=== PATIENT | male | born 1950 | race Caucasian/White ===

== ENCOUNTER 2018-01-29 12:55 | Observation (INO) ==
--- NOTE | 2018-01-29 13:37 | Emergency Department Note ---
Disposition Clinical Impression: Total bilirubin, elevated, Confusion, Pulmonary nodule, Jaundice Disposition: Admitted As Inpatient Condition: Undetermined Referrals: Madelyn Corona DO [Primary Care Provider] - Forms: ED Satisfaction Letter Time of Disposition: 15:48 Altered Mental Status HPI - General Chief Complaint: ED Altered Mental Status Stated Complaint: AMS Time Seen by Provider: 01/29/18 13:23 Source: patient Mode of arrival: ambulatory Limitations: no limitations Nursing Notes Reviewed: Yes Vital Signs Reviewed: Yes - History of Present Illness HPI Narrative: 67-year-old male arrives to the emergency department with concern for confusion and not quite acting right. The patient has been experiencing some intermittent confusion that he has noted with some associated decrease in memory , over the past 3 weeks. His daily worse over the past week. The patient went to his PCP and PCP noted that there is some discoloration of bilateral eyes and he was confused to recent the patient to the emergency department for further evaluation. The patient admits to some decrease in balance but no urinary complaints. He has had this confusion. He denies any abdominal pain, dysuria, black or bloody stools, nausea, vomiting, diarrhea, headaches. He is resting comfortably in the room and was oriented to person and place to nursing staff as well as myself but was noted to not be oriented to time to nursing staff which is documented. To me in the room during exam he is able to give the year but he specifically states that he was unable to a few minutes prior. - Related Data Home Medications Medication Instructions Recorded Confirmed Amlodipine Besylate 10 mg PO DAILY 07/03/16 07/03/16 Ammonium Lactate 1 appl TP BID 07/03/16 07/03/16 Aspirin 81 mg PO DAILY 07/03/16 07/03/16 Atenolol [Tenormin] 50 mg PO DAILY 07/03/16 07/03/16 Cetirizine HCl [Zyrtec] 10 mg PO DAILY 07/03/16 07/03/16 Cholecalciferol (Vitamin D3) 5,000 unit PO DAILY 07/03/16 07/03/16 [Vitamin D3] Dimethicone [Cerave] 1 appl TP BID 07/03/16 07/03/16 Donepezil HCl [Aricept] 10 mg PO HS 07/03/16 07/03/16 Fluticasone Propionate Nasal 50 - 100 mcg NS DAILY PRN 07/03/16 07/03/16 [Flonase] Insulin Glargine [Lantus] 32 unit SQ QPM 07/03/16 07/03/16 Insulin Human Regular [HumuLIN R] 0 unit SQ HS MDD Sliding Scale 07/03/1607/03 Lisinopril [Zestril] 20 mg PO QPM 07/03/16 07/03/16 Lisinopril [Zestril] 40 mg PO QAM 07/03/16 07/03/16 Memantine HCl 10 mg PO BID 07/03/16 07/03/16 Multivitamin [Multi-Day Vitamins] 1 each PO DAILY 07/03/16 07/03/16 Paroxetine [Paxil] 20 mg PO DAILY 07/03/16 07/03/16 Potassium Chloride [K-Tab ER] 20 meq PO BID 07/03/16 07/03/16 Pregabalin [Lyrica] 75 mg PO BID 07/03/16 07/03/16 Saline Nasal [place] [[place] Nasal 1 - 2 spray NS Q4-6H PRN 07/03/16 07/03/16 [place]] Simvastatin [Zocor] 20 mg PO HS 07/03/16 07/03/16 Tamsulosin [Flomax] 0.4 mg PO DAILY 07/03/16 07/03/16 Thiamine (B-1) [Vitamin B-1] 100 mg PO DAILY 07/03/16 07/03/16 clonazePAM [Klonopin] 0.5 mg PO BID PRN 07/03/16 07/03/16 hydroCHLOROthiazide 12.5 mg PO DAILY 07/03/16 07/03/16 [Hydrochlorothiazide] metFORMIN [Glucophage] 850 mg PO BIDWM 07/03/16 07/03/16 Previous Rx's Medication Instructions Recorded Rivaroxaban [Xarelto] 20 mg PO DAILY #30 tablet 07/04/16 Allergies Allergy/AdvReac Type Severity Reaction Status Date / Time ampicillin Allergy Rash Verified 01/29/18 12:59 Penicillins Allergy Hives Verified 01/29/18 12:59 All systems ED: reviewed and negative except as stated. Constitutional: Reports: weakness. Denies: fever, chills ENT ED: Denies: congestion Cardiovascular: Denies: chest pain, dyspnea on exertion, edema, syncope Respiratory: Denies: dyspnea Gastrointestinal: Denies: abdominal pain, nausea, vomiting, diarrhea, constipation, hematemesis, melena, hematochezia Genitourinary: Denies: urgency, dysuria Musculoskeletal: Denies: back pain Neurological: Reports: weakness, confusion. Denies: headache, numbness, paresthesias, abnormal gait, vertigo Past Medical History - Past Medical History Attestation: Yes The following information was validated with the patient. Source: patient, old records reviewed Medical history: Reports: arthritis, atrial fibrillation, dementia, diabetes, hyperlipidemia, hypertension Surgical history: Reports: orthopedic, other Psychiatric history: Reports: anxiety, depression - Social History Smoking Status: Former smoker Smokeless Tobacco Status: No Alcohol use: Reports: none Drug use: Reports: none Physical Exam - General Limitations: altered mental status General appearance: alert, in no apparent distress - Head Head exam: atraumatic, normocephalic, normal inspection - Eye Eye exam: Present: PERRL, EOMI, scleral icterus - ENT ENT exam: normal exam - Neck Neck exam: Present: normal inspection, full ROM, trachea midline - Chest Chest inspection: Present: normal inspection, symmetric chest wall rise - Respiratory Respiratory exam: Present: normal lung sounds bilaterally - Cardiovascular Cardiovascular exam: Present: regular rate, normal rhythm, normal heart sounds - Abdominal Exam Abdominal exam: Present: soft, Non-Tender. Absent: tenderness, distention, guarding, rebound, rigidity - Extremities Exam Extremities exam: Present: normal inspection, full ROM. Absent: tenderness, pedal edema - Back Exam Back exam: Present: normal inspection, full ROM. Absent: tenderness - Neurological Exam Neurological exam: Present: alert, CN II-XII intact - Expanded Neurological Exam Patient oriented to: Present: person, place Speech: Present: fluid speech Cranial nerves: EOM function (II, III, IV, ): Normal, facial sensation (V): Normal, facial palsy (VII): Normal Cerebellar function: normal gait Motor strength - LUE: 4/5 Motor strength - RUE: 4/5 Motor strength - LLE: 4/5 Motor strength - RLE: 4/5 Sensory exam upper extremity: light touch: Normal Sensory exam lower extremity: light touch: Normal DTR: patellar (L): 2+, patellar (R): 2+ Coma Scale Eye Opening: Spontaneous Coma Scale Motor Response: Obeys Commands Coma Scale Verbal Response: Confused Coma Scale Total: 14 - Skin Skin exam: Present: warm, dry, intact, normal color Course Vital Signs Temperature 98 F 01/29/18 12:59 Pulse Rate 80 01/29/18 12:59 Respiratory Rate 20 01/29/18 12:59 Blood Pressure 163/82 01/29/18 12:59 O2 Sat by Pulse Oximetry 97 01/29/18 12:59 Temperature 98 F 01/29/18 13:36 Pulse Rate 115 01/29/18 15:44 Respiratory Rate 16 01/29/18 15:44 Blood Pressure 149/101 01/29/18 15:44 O2 Sat by Pulse Oximetry 97 01/29/18 15:44 Oxygen Delivery Oxygen Delivery Room Air Altered Mental Status - MDM Narrative Medical decision making narrative: Workup in the emergency department demonstrates an elevated bilirubin. Given the patient's confusion as well as bilirubin, we will admit the patient to the hospital at this time for further workup and care. The patient was made aware and agrees to plan. No further questions or concerns noted at this time. Patient was accepted by the hospitalist Dr. Newberry, who requested a ultrasound of his abdomen. This was ordered. The patient will be accepted to the hospital this time. - Lab Data Lab results reviewed: Yes I reviewed the patient's lab results. Result diagrams: 01/29/18 13:34 01/29/18 13:34 Lab Results 01/29/18 01/29/18 01/29/18 Range/Units 13:34 13:34 13:34 WBC 6.9 (4.3-11.1) K/mcL RBC 5.24 (4.19-5.50) M/mcL Hgb 16.0 (12.9-16.9) g/dL Hct 46.9 (37.5-50.1) % MCV 89.5 (83.0-100.0) fL MCH 30.5 (28.0-33.3) pg MCHC 34.1 (31.6-35.5) g/dL RDW 13.0 (11.5-14.5) % Plt Count 171 (140-400) K/mcL MPV 11.4 (9.4-12.4) fL Immature Gran % 0.3 (0-4) % Seg Neutrophils % 73.8 % Lymphocytes % 15.8 % Monocytes % 6.8 % Eosinophils % 2.9 % Basophils % 0.4 % Neutrophils # 5.1 (1.6-8.9) K/mcL Lymphocytes # 1.1 (0.6-4.6) K/mcL Monocytes # 0.5 (0.0-1.3) K/mcL Eosinophils # 0.2 (0.0-0.6) K/mcL Basophils # 0.0 (0.0-0.2) K/mcL PT (9.4-12.1) Seconds INR APTT (26.0-36.0) Seconds Sodium 139 (136-145) mEq/L Potassium 3.6 (3.5-5.1) mEq/L Chloride 100 (98-107) mEq/L Carbon Dioxide 30 H (23-29) mEq/L BUN 16 (8-23) mg/dL Creatinine 1.02 (0.70-1.30) mg/dL Est GFR ( Amer) > 60 (> 60) Est GFR (Non-Af Amer) > 60 (> 60) BUN/Creatinine Ratio 16 (6-26) Glucose 277 H (70-105) mg/dL Calculated Osmolality 299 (280-300) Calcium 10.0 (8.6-10.3) mg/dL Total Bilirubin 1.5 H (0.3-1.0) mg/dL Direct Bilirubin 0.3 H (0.0-0.2) mg/dL Indirect Bilirubin 1.2 (0.0-1.2) mg/dL AST 18 (13-39) Units/L ALT 25 (7-52) Units/L Alkaline Phosphatase 120 H (34-104) Units/L Ammonia 27 (16-53) mcmol/L Troponin I < 0.03 (< 0.04) ng/mL Serum Total Protein 7.5 (6.4-8.9) g/dL Albumin 4.8 (3.5-5.7) g/dL Globulin 2.7 (2.4-3.5) g/dL Albumin/Globulin Ratio 1.8 (1.1-2.2) Urine Color (Yellow) Urine Clarity (Clear) Urine pH (5.0-8.0) pH Units Ur Specific [place] (1.010-1.025) Urine Protein (Neg-Trace) mg/dL Urine Glucose (UA) (Normal) mg/dL Urine Ketones (Negative) mg/dL Urine Blood (Negative) Urine Nitrite (Negative) Urine Bilirubin (Negative) Urine Urobilinogen (Normal) mg/dL Ur Leukocyte Esterase (Negative) Urine Microscopic RBC (0-3) per hpf Urine Microscopic WBC (0-3) per hpf Ur Squamous Epith Cells (None-Few) per lpf Urine Bacteria (None-Few) per hpf Hyaline Casts (None-Few) per lpf Ur Culture Indicated? (NO) Ethyl Alcohol < 10 (Less than 10) mg/dL 01/29/18 01/29/18 Range/Units 13:34 14:35 WBC (4.3-11.1) K/mcL RBC (4.19-5.50) M/mcL Hgb (12.9-16.9) g/dL Hct (37.5-50.1) % MCV (83.0-100.0) fL MCH (28.0-33.3) pg MCHC (31.6-35.5) g/dL RDW (11.5-14.5) % Plt Count (140-400) K/mcL MPV (9.4-12.4) fL Immature Gran % (0-4) % Seg Neutrophils % % Lymphocytes % % Monocytes % % Eosinophils % % Basophils % % Neutrophils # (1.6-8.9) K/mcL Lymphocytes # (0.6-4.6) K/mcL Monocytes # (0.0-1.3) K/mcL Eosinophils # (0.0-0.6) K/mcL Basophils # (0.0-0.2) K/mcL PT 11.3 (9.4-12.1) Seconds INR 1.1 APTT 34.1 (26.0-36.0) Seconds Sodium (136-145) mEq/L Potassium (3.5-5.1) mEq/L Chloride (98-107) mEq/L Carbon Dioxide (23-29) mEq/L BUN (8-23) mg/dL Creatinine (0.70-1.30) mg/dL Est GFR ( Amer) (> 60) Est GFR (Non-Af Amer) (> 60) BUN/Creatinine Ratio (6-26) Glucose (70-105) mg/dL Calculated Osmolality (280-300) Calcium (8.6-10.3) mg/dL Total Bilirubin (0.3-1.0) mg/dL Direct Bilirubin (0.0-0.2) mg/dL Indirect Bilirubin (0.0-1.2) mg/dL AST (13-39) Units/L ALT (7-52) Units/L Alkaline Phosphatase (34-104) Units/L Ammonia (16-53) mcmol/L Troponin I (< 0.04) ng/mL Serum Total Protein (6.4-8.9) g/dL Albumin (3.5-5.7) g/dL Globulin (2.4-3.5) g/dL Albumin/Globulin Ratio (1.1-2.2) Urine Color Yellow (Yellow) Urine Clarity Clear (Clear) Urine pH 7.0 (5.0-8.0) pH Units Ur Specific [place] 1.018 (1.010-1.025) Urine Protein 30 H (Neg-Trace) mg/dL Urine Glucose (UA) 250 H (Normal) mg/dL Urine Ketones Negative (Negative) mg/dL Urine Blood Negative (Negative) Urine Nitrite Negative (Negative) Urine Bilirubin Negative (Negative) Urine Urobilinogen Normal (Normal) mg/dL Ur Leukocyte Esterase Negative (Negative) Urine Microscopic RBC 3-5 H (0-3) per hpf Urine Microscopic WBC 0-3 (0-3) per hpf Ur Squamous Epith Cells Moderate H (None-Few) per lpf Urine Bacteria None Seen (None-Few) per hpf Hyaline Casts None Seen (None-Few) per lpf Ur Culture Indicated? NO (NO) Ethyl Alcohol (Less than 10) mg/dL - Radiology Data Radiology results reviewed: Yes I reviewed the patient's radiology results. Chest X-Ray 01/29/18 13:08 IMPRESSION: No acute cardiopulmonary process. D/ / 01/29/2018 13:49:54 Deng Turner MD / yovani Interpreting Provider: Deng Turner MD Abdomen/Pelvis CT 01/29/18 13:32 IMPRESSION: 1. No definite acute findings in the abdomen or pelvis. 2. Small bowel fecalization without findings of obstruction, potentially due to bacterial overgrowth. 3. Areas of mild urinary bladder wall thickening could be related to incomplete distention, chronic outlet obstruction, or cystitis. 4. Suspected circumferential wall thickening in the distal thoracic esophagus potentially due to esophagitis. 5. Partially included solid nodule in the lingula measures at least 0.7 cm x 0.3 cm. Alternately, this could represent incompletely included scarring. Consider follow-up chest CT in 12 months as below. 6. A few incidental findings as above. RECOMMENDATIONS: Fleischner Society guidelines for follow-up and management of incidentally detected pulmonary nodules: Single Solid Nodule: Nodule size less than 6 mm In a high-risk patient, optional CT at 12 months. Radiology 2017 http://pubs.rsna.org/doi/full/10.1148/radiol.[email or web address] D/ / Alexandr Carrion MD / Alexandr Carrion MD Interpreting Provider: Alexandr Carrion MD Head CT 01/29/18 13:32 IMPRESSION: No acute intracranial abnormality. D/ / Rose Ellis MD / Rose Ellis MD Interpreting Provider: Rose Ellis MD - EKG Data EKG attestation: Yes I reviewed and interpreted this EKG. EKG results narrative: Heart rate 97 beats for minute. Atrial fibrillation. No ST elevation or ST depression noted. No acute changes noted. TPA Checklist - LKW: 3-4.5 hrs Add. Warnings/Precautions Patient/family understanding: The patient/family members have been counseled and understood the risk, benefit , and alternatives of treatment.
[2018-01-29 14:17] LABS: Troponin I < 0.03 ng/mL (< 0.04)
[2018-01-29 14:18] LABS: Alanine Aminotransferase 25 Units/L (7-52); Albumin 4.8 g/dL (3.5-5.7); Albumin/Globulin Ratio 1.8 (1.1-2.2); Alkaline Phosphatase 120 Units/L (34-104); Aspartate Amino Transferase 18 Units/L (13-39); BUN/Creatinine Ratio 16 (6-26); Bilirubin,Direct 0.3 mg/dL (0.0-0.2); Bilirubin,Indirect 1.2 mg/dL (0.0-1.2); Bilirubin,Total 1.5 mg/dL (0.3-1.0); Blood Urea Nitrogen 16 mg/dL (8-23); Carbon Dioxide 30 mEq/L (23-29); Chloride 100 mEq/L (98-107); Ethanol < 10 mg/dL (Less than 10); Globulin 2.7 g/dL (2.4-3.5); Glucose 277 mg/dL (70-105); Osmolality,Calculated 299 (280-300); Potassium 3.6 mEq/L (3.5-5.1); Sodium 139 mEq/L (136-145); Total Protein 7.5 g/dL (6.4-8.9); eGFR For African Americans > 60 (> 60); eGFR For Non-African Americans > 60 (> 60)
[2018-01-29 14:24] LABS: Basophils % 0.4 %; Eosinophils # 0.2 K/mcL (0.0-0.6); Eosinophils % 2.9 %; Hematocrit 46.9 % (37.5-50.1); Immature Granulocytes % 0.3 % (0-4); Lymphocytes # 1.1 K/mcL (0.6-4.6); Lymphocytes % 15.8 %; Mean Corpuscular HGB Conc 34.1 g/dL (31.6-35.5); Mean Corpuscular Hemoglobin 30.5 pg (28.0-33.3); Mean Corpuscular Volume 89.5 fL (83.0-100.0); Mean Platelet Volume 11.4 fL (9.4-12.4); Monocytes # 0.5 K/mcL (0.0-1.3); Monocytes % 6.8 %; Neutrophils # 5.1 K/mcL (1.6-8.9); Platelet Count 171 K/mcL (140-400); Red Blood Count 5.24 M/mcL (4.19-5.50); Segmented Neutrophils % 73.8 %
[2018-01-29 14:35] LABS: INR 1.1; Prothrombin Time 11.3 Seconds (9.4-12.1)
[2018-01-29 14:38] LABS: Activated Partial Thrombo Time 34.1 Seconds (26.0-36.0)
[2018-01-29 14:56] LABS: Bilirubin,Urine Negative (Negative); Blood,Urine Negative (Negative); Clarity,Urine Clear (Clear); Color,Urine Yellow (Yellow); Glucose,Urine (UA) 250 mg/dL (Normal); Ketones,Urine Negative (Negative); Leukocyte Esterase,Urine Negative (Negative); Nitrite,Urine Negative (Negative); Protein,Urine 30 mg/dL (Neg-Trace); Specific Gravity,Urine 1.018 (1.010-1.025); Urobilinogen,Urine Normal (Normal)
[2018-01-29 14:58] LABS: Bacteria,Urine None Seen per hpf (None-Few); Hyaline Casts,Urine None Seen per lpf (None-Few); Squamous Epithelial Cell,Urine Moderate per lpf (None-Few); WBC,Urine 0-3 per hpf (0-3)
[2018-01-29] MEDS ORDERED: 0.9 % Sodium Chloride 1,000 ML IVC ONE (15:47)
[2018-01-29 15:59] LABS: Amphetamine Screen,Urine Negative ng/mL (Cutoff=1000); Barbiturate Screen,Urine Negative ng/mL (Cutoff=200); Benzodiazepines Screen,Urine Negative ng/mL (Cutoff=200); Cannabinoid Screen,Urine Negative ng/mL (Cutoff = 50); Cocaine Screen,Urine Negative ng/mL (Cutoff= 300); Opiate Screen,Urine Negative ng/mL (Cutoff=300); Phencyclidine Screen,Urine Negative ng/mL (Cutoff=25)
--- NOTE | 2018-01-29 16:30 | Emergency Department Note ---
Disposition Clinical Impression: Total bilirubin, elevated, Confusion, Pulmonary nodule, Jaundice Disposition: Admitted As Inpatient Referrals: Madelyn Corona DO [Partnered Physician] - Forms: ED Satisfaction Letter Altered Mental Status HPI - General Chief Complaint: ED Altered Mental Status Stated Complaint: AMS Time Seen by Provider: 01/29/18 13:23 Source: patient Mode of arrival: ambulatory Limitations: altered mental status Nursing Notes Reviewed: Yes Vital Signs Reviewed: Yes - Related Data Home Medications Medication Instructions Recorded Confirmed Amlodipine Besylate 10 mg PO DAILY 07/03/16 01/29/18 Ammonium Lactate 1 appl TP BID 07/03/16 01/29/18 Aspirin 81 mg PO DAILY 07/03/16 01/29/18 Cetirizine HCl [Zyrtec] 10 mg PO DAILY 07/03/16 01/29/18 Cholecalciferol (Vitamin D3) 5,000 unit PO DAILY 07/03/16 01/29/18 [Vitamin D3] Dimethicone [Cerave] 1 appl TP BID 07/03/16 01/29/18 Donepezil HCl [Aricept] 10 mg PO HS 07/03/16 01/29/18 Fluticasone Propionate Nasal 50 - 100 mcg NS DAILY PRN 07/03/16 01/29/18 [Flonase] Insulin Glargine [Lantus] 32 unit SQ QPM 07/03/16 01/29/18 Insulin Human Regular [HumuLIN R] 0 unit SQ HS MDD Sliding Scale 07/03/1601/29 Lisinopril [Zestril] 20 mg PO QPM 07/03/16 01/29/18 Lisinopril [Zestril] 40 mg PO QAM 07/03/16 01/29/18 Memantine HCl 10 mg PO BID 07/03/16 01/29/18 Paroxetine [Paxil] 20 mg PO DAILY 07/03/16 01/29/18 Potassium Chloride [K-Tab ER] 20 meq PO BID 07/03/16 01/29/18 Pregabalin [Lyrica] 75 mg PO BID 07/03/16 01/29/18 Saline Nasal [place] [[place] Nasal 1 - 2 spray NS Q4-6H PRN 07/03/16 01/29/18 [place]] Simvastatin [Zocor] 20 mg PO HS 07/03/16 01/29/18 Thiamine (B-1) [Vitamin B-1] 100 mg PO DAILY 07/03/16 01/29/18 clonazePAM [Klonopin] 0.5 mg PO BID PRN 07/03/16 01/29/18 hydroCHLOROthiazide 12.5 mg PO DAILY 07/03/16 01/29/18 [Hydrochlorothiazide] metFORMIN [Glucophage] 850 mg PO BIDWM 07/03/16 01/29/18 Atenolol [Tenormin] 25 mg PO DAILY 01/29/18 01/29/18 Multivitamin [One Daily 1 tab PO DAILY 01/29/18 01/29/18 Multivitamin] OxyCODONE/APAP 5/325 [Percocet 1 tab PO Q6HR PRN 01/29/18 01/29/18 5/325 MG] Tamsulosin [Flomax] 0.4 mg PO DAILY 01/29/18 01/29/18 Previous Rx's Medication Instructions Recorded Rivaroxaban [Xarelto] 20 mg PO DAILY #30 tablet 07/04/16 Allergies Allergy/AdvReac Type Severity Reaction Status Date / Time ampicillin Allergy Rash Verified 01/29/18 12:59 Penicillins Allergy Hives Verified 01/29/18 12:59 Constitutional: Reports: weakness. Denies: fever, chills ENT ED: Denies: congestion Cardiovascular: Denies: chest pain, dyspnea on exertion, edema, syncope Respiratory: Denies: dyspnea Gastrointestinal: Denies: abdominal pain, nausea, vomiting, diarrhea, constipation, hematemesis, melena, hematochezia Genitourinary: Denies: urgency, dysuria Musculoskeletal: Denies: back pain Neurological: Reports: weakness, confusion. Denies: headache, numbness, paresthesias, abnormal gait, vertigo Past Medical History - Past Medical History Medical history: Reports: arthritis, atrial fibrillation, dementia, diabetes, hyperlipidemia, hypertension Surgical history: Reports: orthopedic, other Psychiatric history: Reports: anxiety, depression - Social History Smoking Status: Former smoker Smokeless Tobacco Status: No Alcohol use: Reports: none Drug use: Reports: none Physical Exam - General Limitations: altered mental status General appearance: alert, in no apparent distress Course Vital Signs Temperature 98 F 01/29/18 12:59 Pulse Rate 80 01/29/18 12:59 Respiratory Rate 20 01/29/18 12:59 Blood Pressure 163/82 01/29/18 12:59 O2 Sat by Pulse Oximetry 97 01/29/18 12:59 Temperature 98 F 01/29/18 13:36 Pulse Rate 115 01/29/18 15:44 Respiratory Rate 16 01/29/18 15:44 Blood Pressure 149/101 01/29/18 15:44 O2 Sat by Pulse Oximetry 97 01/29/18 15:44 Oxygen Delivery Oxygen Delivery Room Air Altered Mental Status - Lab Data Result diagrams: 01/29/18 13:34 01/29/18 13:34 Lab Results 01/29/18 01/29/18 01/29/18 Range/Units 13:34 13:34 13:34 WBC 6.9 (4.3-11.1) K/mcL RBC 5.24 (4.19-5.50) M/mcL Hgb 16.0 (12.9-16.9) g/dL Hct 46.9 (37.5-50.1) % MCV 89.5 (83.0-100.0) fL MCH 30.5 (28.0-33.3) pg MCHC 34.1 (31.6-35.5) g/dL RDW 13.0 (11.5-14.5) % Plt Count 171 (140-400) K/mcL MPV 11.4 (9.4-12.4) fL Immature Gran % 0.3 (0-4) % Seg Neutrophils % 73.8 % Lymphocytes % 15.8 % Monocytes % 6.8 % Eosinophils % 2.9 % Basophils % 0.4 % Neutrophils # 5.1 (1.6-8.9) K/mcL Lymphocytes # 1.1 (0.6-4.6) K/mcL Monocytes # 0.5 (0.0-1.3) K/mcL Eosinophils # 0.2 (0.0-0.6) K/mcL Basophils # 0.0 (0.0-0.2) K/mcL PT (9.4-12.1) Seconds INR APTT (26.0-36.0) Seconds Sodium 139 (136-145) mEq/L Potassium 3.6 (3.5-5.1) mEq/L Chloride 100 (98-107) mEq/L Carbon Dioxide 30 H (23-29) mEq/L BUN 16 (8-23) mg/dL Creatinine 1.02 (0.70-1.30) mg/dL Est GFR ( Amer) > 60 (> 60) Est GFR (Non-Af Amer) > 60 (> 60) BUN/Creatinine Ratio 16 (6-26) Glucose 277 H (70-105) mg/dL Calculated Osmolality 299 (280-300) Calcium 10.0 (8.6-10.3) mg/dL Total Bilirubin 1.5 H (0.3-1.0) mg/dL Direct Bilirubin 0.3 H (0.0-0.2) mg/dL Indirect Bilirubin 1.2 (0.0-1.2) mg/dL AST 18 (13-39) Units/L ALT 25 (7-52) Units/L Alkaline Phosphatase 120 H (34-104) Units/L Ammonia 27 (16-53) mcmol/L Troponin I < 0.03 (< 0.04) ng/mL Serum Total Protein 7.5 (6.4-8.9) g/dL Albumin 4.8 (3.5-5.7) g/dL Globulin 2.7 (2.4-3.5) g/dL Albumin/Globulin Ratio 1.8 (1.1-2.2) Urine Color (Yellow) Urine Clarity (Clear) Urine pH (5.0-8.0) pH Units Ur Specific [place] (1.010-1.025) Urine Protein (Neg-Trace) mg/dL Urine Glucose (UA) (Normal) mg/dL Urine Ketones (Negative) mg/dL Urine Blood (Negative) Urine Nitrite (Negative) Urine Bilirubin (Negative) Urine Urobilinogen (Normal) mg/dL Ur Leukocyte Esterase (Negative) Urine Microscopic RBC (0-3) per hpf Urine Microscopic WBC (0-3) per hpf Ur Squamous Epith Cells (None-Few) per lpf Urine Bacteria (None-Few) per hpf Hyaline Casts (None-Few) per lpf Ur Culture Indicated? (NO) Urine Opiates Screen (Iulqbi=869) ng/mL Ur Barbiturates Screen (Eaimmy=822) ng/mL Ur Phencyclidine Scrn (Cutoff=25) ng/mL Ur Amphetamines Screen (Galwtb=4830) ng/mL U Benzodiazepines Scrn (Cncltn=420) ng/mL Urine Cocaine Screen (Cutoff= 300) ng/mL U Marijuana (THC) Screen (Cutoff = 50) ng/mL Ethyl Alcohol < 10 (Less than 10) mg/dL 01/29/18 01/29/18 01/29/18 Range/Units 13:34 14:35 14:35 WBC (4.3-11.1) K/mcL RBC (4.19-5.50) M/mcL Hgb (12.9-16.9) g/dL Hct (37.5-50.1) % MCV (83.0-100.0) fL MCH (28.0-33.3) pg MCHC (31.6-35.5) g/dL RDW (11.5-14.5) % Plt Count (140-400) K/mcL MPV (9.4-12.4) fL Immature Gran % (0-4) % Seg Neutrophils % % Lymphocytes % % Monocytes % % Eosinophils % % Basophils % % Neutrophils # (1.6-8.9) K/mcL Lymphocytes # (0.6-4.6) K/mcL Monocytes # (0.0-1.3) K/mcL Eosinophils # (0.0-0.6) K/mcL Basophils # (0.0-0.2) K/mcL PT 11.3 (9.4-12.1) Seconds INR 1.1 APTT 34.1 (26.0-36.0) Seconds Sodium (136-145) mEq/L Potassium (3.5-5.1) mEq/L Chloride (98-107) mEq/L Carbon Dioxide (23-29) mEq/L BUN (8-23) mg/dL Creatinine (0.70-1.30) mg/dL Est GFR ( Amer) (> 60) Est GFR (Non-Af Amer) (> 60) BUN/Creatinine Ratio (6-26) Glucose (70-105) mg/dL Calculated Osmolality (280-300) Calcium (8.6-10.3) mg/dL Total Bilirubin (0.3-1.0) mg/dL Direct Bilirubin (0.0-0.2) mg/dL Indirect Bilirubin (0.0-1.2) mg/dL AST (13-39) Units/L ALT (7-52) Units/L Alkaline Phosphatase (34-104) Units/L Ammonia (16-53) mcmol/L Troponin I (< 0.04) ng/mL Serum Total Protein (6.4-8.9) g/dL Albumin (3.5-5.7) g/dL Globulin (2.4-3.5) g/dL Albumin/Globulin Ratio (1.1-2.2) Urine Color Yellow (Yellow) Urine Clarity Clear (Clear) Urine pH 7.0 (5.0-8.0) pH Units Ur Specific [place] 1.018 (1.010-1.025) Urine Protein 30 H (Neg-Trace) mg/dL Urine Glucose (UA) 250 H (Normal) mg/dL Urine Ketones Negative (Negative) mg/dL Urine Blood Negative (Negative) Urine Nitrite Negative (Negative) Urine Bilirubin Negative (Negative) Urine Urobilinogen Normal (Normal) mg/dL Ur Leukocyte Esterase Negative (Negative) Urine Microscopic RBC 3-5 H (0-3) per hpf Urine Microscopic WBC 0-3 (0-3) per hpf Ur Squamous Epith Cells Moderate H (None-Few) per lpf Urine Bacteria None Seen (None-Few) per hpf Hyaline Casts None Seen (None-Few) per lpf Ur Culture Indicated? NO (NO) Urine Opiates Screen Negative (Mbuzrp=982) ng/mL Ur Barbiturates Screen Negative (Xiitey=181) ng/mL Ur Phencyclidine Scrn Negative (Cutoff=25) ng/mL Ur Amphetamines Screen Negative (Afnesd=9250) ng/mL U Benzodiazepines Scrn Negative (Jcchch=375) ng/mL Urine Cocaine Screen Negative (Cutoff= 300) ng/mL U Marijuana (THC) Screen Negative (Cutoff = 50) ng/mL Ethyl Alcohol (Less than 10) mg/dL TPA Checklist - LKW: 3-4.5 hrs Add. Warnings/Precautions Patient/family understanding: The patient/family members have been counseled and understood the risk, benefit , and alternatives of treatment. Attestation Statement - Attestation Attestation: I, Ezequiel Corley, examined this patient and my medical decision-making was reviewed with the TAILOR HELPER/PA/Advanced Practice Nurse/Resident Physician. I agree with the documented findings, disposition and treatment plan as described except to the extent set forth below. 67-year-old male presents emergency Department with concerns of altered mental status. Patient is awake and alert in the emergency department and he is oriented 4. He states that he has noticed increasing confusion over the past week. Despite being oriented 4 he has periods of occasional confusion where he repeats the same story about his multiple times during the interview. He denies recent trauma or changes in his medications. Patient is mildly jaundiced on his initial evaluation with scleral icterus. His total bilirubin was elevated at 1.5. Patient has a history of significant EtOH abuse but not within the past few years. No focal neurologic deficits on exam. CT of the head was negative for acute fracture or intracranial hemorrhage. CT of the abdomen and pelvis was negative for acute abdominal pathology. Patient will be admitted to the hospitalist for further care and evaluation.
[2018-01-29 16:36] LABS: Acetaminophen < 10 mcg/mL (10-20)
--- NOTE | 2018-01-29 17:23 | Internal Med History&Physical ---
Date of Encounter: 01/29/18 Time of Encounter: 17:07 Internal Medicine - H&P: HPI Admitted From: Emergency Dept Plans for Post Hospital Care: Home History of present illness: Mr. Alves is a 67 year old male cognitive impairment, atrial fibrillation, DM- II, HTN. 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 Pt not aware of hx of dementia but does state that he gets confused. Pt is on medication for dementia. Denies urinary symptoms. Denies CP or SOB. Denies fever or chills. Denies abdominal pain. Reports prior hx of EOTH abuse but states he quit. States she has not drank in years. Denies hx of ETOH withdrawal or ETOH related seizures. According to ED resident, [facility] pt's PCP referred pt here due to increasing confusion. In ED pt's workup shows CBC wnl, PT 11.3, INR 1.1 BMP NA 139, K 3.6, Cl 100, BUN 16, Cr 1.02. Glucose 277. T bilirubin 1.5, DR bili 0.3. AST 18, ALT 25, Alk phos 120. UA negative for UTI. ETOH < 10, Acetamoniphen <10. UDS neg CT head non-contrast IMPRESSION: no acute intracranial abnormality Chest x ray IMPRESSION: No acute cardio-pulmonary process. CT abdomen and pelvis IMPRESSION: Area of mild urinary bladder wall thickening. suspected circumferential wall thickening in the distal thoracic esophagus potentially due to esophagitis. Past Med Surg Social Fam HX - Past Medical History Medical history: arthritis, atrial fibrillation, dementia, diabetes, hyperlipidemia, hypertension Additional medical history: DDD-spine Psychiatric history: anxiety, depression - Past Surgical History Surgical History: orthopedic, other Additional surgical history: L foot repiar, tib/fib repair, R clavicle - Social History Smoking Status: Former smoker Smokeless Tobacco Status: No Alcohol use: none Drug use: none Internal Medicine - H&P: Meds Amlodipine Besylate 10 mg PO DAILY 07/03/16 [History] Ammonium Lactate 1 appl TP BID 07/03/16 [History] Aspirin 81 mg PO DAILY 07/03/16 [History] Cetirizine HCl [Zyrtec] 10 mg PO DAILY 07/03/16 [History] Cholecalciferol (Vitamin D3) [Vitamin D3] 5,000 unit PO DAILY 07/03/16 [History] Dimethicone [Cerave] 1 appl TP BID 07/03/16 [History] Donepezil HCl [Aricept] 10 mg PO HS 07/03/16 [History] Fluticasone Propionate Nasal [Flonase] 50 - 100 mcg NS DAILY PRN 07/03/16 [ History] Insulin Glargine [Lantus] 32 unit SQ QPM 07/03/16 [History] Insulin Human Regular [HumuLIN R] 0 unit SQ HS MDD Sliding Scale 07/03/16 [ History] Lisinopril [Zestril] 20 mg PO QPM 07/03/16 [History] Lisinopril [Zestril] 40 mg PO QAM 07/03/16 [History] Memantine HCl 10 mg PO BID 07/03/16 [History] Paroxetine [Paxil] 20 mg PO DAILY 07/03/16 [History] Potassium Chloride [K-Tab ER] 20 meq PO BID 07/03/16 [History] Pregabalin [Lyrica] 75 mg PO BID 07/03/16 [History] Saline Nasal [place] [[place] Nasal [place]] 1 - 2 spray NS Q4-6H PRN 07/03/16 [ History] Simvastatin [Zocor] 20 mg PO HS 07/03/16 [History] Thiamine (B-1) [Vitamin B-1] 100 mg PO DAILY 07/03/16 [History] clonazePAM [Klonopin] 0.5 mg PO BID PRN 07/03/16 [History] hydroCHLOROthiazide [Hydrochlorothiazide] 12.5 mg PO DAILY 07/03/16 [History] metFORMIN [Glucophage] 850 mg PO BIDWM 07/03/16 [History] Rivaroxaban [Xarelto] 20 mg PO DAILY #30 tablet 07/04/16 [Rx] Atenolol [Tenormin] 25 mg PO DAILY 01/29/18 [History] Multivitamin [One Daily Multivitamin] 1 tab PO DAILY 01/29/18 [History] OxyCODONE/APAP 5/325 [Percocet 5/325 MG] 1 tab PO Q6HR PRN 01/29/18 [History] Tamsulosin [Flomax] 0.4 mg PO DAILY 01/29/18 [History] 3 Allergy/AdvReac Type Severity Reaction Status Date / Time ampicillin Allergy Rash Verified 01/29/18 12:59 Penicillins Allergy Hives Verified 01/29/18 12:59 All Systems PM: A 10-system review of systems was performed and is negative for pertinent findings except as documented above in the HPI. - Constitutional Vitals: Temp Pulse Resp BP Pulse Ox 98 F 115 16 149/101 97 01/29/18 13:36 01/29/18 15:44 01/29/18 15:44 01/29/18 15:44 01/29/18 15:44 General appearance: Present: A&O X 3, no acute distress - Head Head exam: Present: atraumatic, normocephalic - Eye Eye exam: Present: PERRL, conjuntiva pink, sclera anicteric Pupils: Present: PERRL - Neck Neck exam general surgery: Present: supple, trachea midline. Absent: lymphadenopathy - Respiratory Respiratory exam: Present: CTAB. Absent: accessory muscle use, rales, rhonchi, wheezes - Cardiovascular Cardiovascular exam: Present: RRR, +S1, +S2. Absent: diastolic murmur, gallop, rubs, systolic murmur - GI/Abdominal GI/Abdominal exam: Present: normal bowel sounds, soft, no peritoneal signs. Absent: distended, tenderness - Extremities Exam Extremities exam: Present: warm, radial pulses palpable and symmetrical. Absent : calf tenderness, cyanotic, pedal edema - Neurological Exam Neurological exam: Present: CN II-XII intact, oriented X3, no focal deficits. Absent: pronater drift, facial droop, speech deficit - Skin Skin exam: Present: dry, intact Internal Med - H&P Results - Labs CBC & Chem 7: 01/29/18 13:34 01/29/18 13:34 Labs: Short CBC 01/29/18 Range/Units 13:34 WBC 6.9 (4.3-11.1) K/mcL Hgb 16.0 (12.9-16.9) g/dL Hct 46.9 (37.5-50.1) % Plt Count 171 (140-400) K/mcL Neutrophils # 5.1 (1.6-8.9) K/mcL BMP 01/29/18 13:34 Sodium 139 Potassium 3.6 Chloride 100 Carbon Dioxide 30 H BUN 16 Creatinine 1.02 Glucose 277 H Calcium 10.0 Cardiac Enzymes 06/06/18 Range/Units 13:34 Troponin I < 0.03 (< 0.04) ng/mL Liver Function 01/29/18 Range/Units 13:34 Total Bilirubin 1.5 H (0.3-1.0) mg/dL Direct Bilirubin 0.3 H (0.0-0.2) mg/dL AST 18 (13-39) Units/L ALT 25 (7-52) Units/L Alkaline Phosphatase 120 H (34-104) Units/L Albumin 4.8 (3.5-5.7) g/dL Urine 01/29/18 Range/Units 14:35 Urine Color Yellow (Yellow) Urine Clarity Clear (Clear) Urine pH 7.0 (5.0-8.0) pH Units Ur Specific [place] 1.018 (1.010-1.025) Urine Protein 30 H (Neg-Trace) mg/dL Urine Glucose (UA) 250 H (Normal) mg/dL - Impressions ITS Impressions Chest X-Ray 01/29/18 13:08 IMPRESSION: No acute cardiopulmonary process. D/ / 01/29/2018 13:49:54 Deng Turner MD / yovani Interpreting Provider: Deng Turner MD Abdomen/Pelvis CT 01/29/18 13:32 IMPRESSION: 1. No definite acute findings in the abdomen or pelvis. 2. Small bowel fecalization without findings of obstruction, potentially due to bacterial overgrowth. 3. Areas of mild urinary bladder wall thickening could be related to incomplete distention, chronic outlet obstruction, or cystitis. 4. Suspected circumferential wall thickening in the distal thoracic esophagus potentially due to esophagitis. 5. Partially included solid nodule in the lingula measures at least 0.7 cm x 0.3 cm. Alternately, this could represent incompletely included scarring. Consider follow-up chest CT in 12 months as below. 6. A few incidental findings as above. RECOMMENDATIONS: Fleischner Society guidelines for follow-up and management of incidentally detected pulmonary nodules: Single Solid Nodule: Nodule size less than 6 mm In a high-risk patient, optional CT at 12 months. Radiology 2017 http://pubs.rsna.org/doi/full/10.1148/radiol.[email or web address] D/ / Alexandr Carrion MD / Alexandr Carrion MD Interpreting Provider: Alexandr Carrion MD Head CT 01/29/18 13:32 IMPRESSION: No acute intracranial abnormality. D/ / Rose Ellis MD / Rose Ellis MD Interpreting Provider: Rose Ellis MD - Assessment and plan (1) Confusion Current Visit: Yes Status: Acute Assessment and plan: Pt's confusion appears to be progressive over time. not available at this time for questioning. Will monitor over night.Will check TSH. (2) Pulmonary nodule Current Visit: Yes Status: Acute Assessment and plan: Recommend out pt follow up with PCP (3) Total bilirubin, elevated Current Visit: Yes Status: Acute Assessment and plan: There is no evidence of jaundice on physical exam. Alk phos 120. Pt admits to hx of ETOH dependence but quite years ago. Will give IVF and re check CMP in am. Abdominal US shows fatty liver which could also explain bump in bilirubin. (4) Atrial fibrillation Current Visit: No Status: Acute Assessment and plan: Will resume home Xarelto and Tenormin Qualifiers: Atrial fibrillation type: paroxysmal Qualified Code(s): I48.0 - Paroxysmal atrial fibrillation (5) Dementia Current Visit: No Status: Chronic Assessment and plan: Pt is on Aricept and Namenda. Will resume home meds. Qualifiers: Dementia type: Alzheimer's disease Alzheimer's disease onset: late-onset Dementia behavioral disturbance: without behavioral disturbance Qualified Code (s): G30.1 - Alzheimer's disease with late onset; F02.80 - Dementia in other diseases classified elsewhere without behavioral disturbance (6) Essential hypertension Current Visit: No Status: Acute Assessment and plan: Lisinopril, norvasc, Tenormin, HCTZ (7) Type 2 diabetes mellitus Current Visit: No Status: Chronic Assessment and plan: Metformin. Will monitor glucose. Qualifiers: Diabetes mellitus manager intermediate insulin use: with manager intermediate use Diabetes mellitus complication status: with ophthalmic complications Diabetes mellitus complication detail: with cataract Qualified Code(s): E11.36 - Type 2 diabetes mellitus with diabetic cataract; Z79.4 - terminal make up operator (current) use of insulin - Time Spent With Patient Total time spent is greater than 50% in coordination of care (as documented) at patient's floor/unit and/or counseling patient: 25 - 35 minutes
[2018-01-29] MEDS ORDERED: *HR* OxyCODONE/APAP 5/325 TABLET PO PRN (17:40)
[2018-01-29] MEDS ORDERED: clonazePAM 0.5 MG TABLET PO PRN (17:40)
[2018-01-29] MEDS ORDERED: Fluticasone Propionate Nasal 50 MCG/SPRAY BOTTLE NS PRN (17:40)
[2018-01-29] MEDS ORDERED: Naloxone 0.4 MG/ML INJ IVP PRN (17:44)
[2018-01-29] MEDS ORDERED: Acetaminophen 325 MG TABLET PO PRN (17:44)
[2018-01-29] MEDS ORDERED: 0.9 % Sodium Chloride 1,000 ML IVC SCH (17:45)
[2018-01-29] MEDS ORDERED: Insulin DETEMIR 100 UNIT/ML X5UNITS SQ SCH (18:00)
[2018-01-29 18:02] LABS: Hepatitis A Antibody IgM Nonreactive (Nonreactive); Hepatitis B Core IgM Nonreactive (Nonreactive); Hepatitis B Surface Antigen Nonreactive (Nonreactive); Hepatitis C Virus Antibody Nonreactive (Nonreactive)
[2018-01-29] MEDS: Lisinopril 20 MG TABLET PO SCH (20:33)
[2018-01-29] MEDS: Pregabalin 75 MG CAPSULE PO SCH (20:33)
[2018-01-29] MEDS: DIMETHICONE APPL TP SCH (20:42)
[2018-01-29] MEDS: Ammonium Lactate 30 APPL/225 GM BOTTLE TP SCH (20:42)
[2018-01-30] MEDS: Pregabalin 75 MG CAPSULE PO SCH (07:55)
[2018-01-30] MEDS: *HR* Metformin 850 MG TABLET PO SCH ×2 (07:56→16:24)
[2018-01-30] MEDS ORDERED: Thiamine (B-1) 100 MG TABLET PO SCH (09:00)
[2018-01-30] MEDS ORDERED: hydroCHLOROthiazide 25 MG TABLET PO SCH (09:00)
[2018-01-30] MEDS ORDERED: Multivit/Ca/Min/Fe/FA 1 TAB TABLET PO SCH (09:00)
[2018-01-30] MEDS ORDERED: Cholecalciferol (D-3) 1,000 UNIT TABLET PO SCH (09:00)
[2018-01-30] MEDS ORDERED: Loratadine 10 MG TABLET PO SCH (09:00)
[2018-01-30] MEDS ORDERED: amLODIPine 5 MG TABLET PO SCH (09:00)
[2018-01-30] MEDS ORDERED: *HR* Rivaroxaban 10 MG TABLET PO SCH (09:00)
[2018-01-30] MEDS ORDERED: Lisinopril 20 MG TABLET PO SCH (09:00)
[2018-01-30] MEDS ORDERED: Aspirin 81 MG TAB.CHEW PO SCH (09:00)
[2018-01-30] MEDS: DIMETHICONE APPL TP SCH (11:39)
[2018-01-30] MEDS: Ammonium Lactate 30 APPL/225 GM BOTTLE TP SCH (12:12)
[2018-01-30 12:29] LABS: Albumin 4.3 g/dL (3.5-5.7); Albumin/Globulin Ratio 1.7 (1.1-2.2); Bilirubin,Direct 0.3 mg/dL (0.0-0.2); Bilirubin,Indirect 1.5 mg/dL (0.0-1.2); Bilirubin,Total 1.8 mg/dL (0.3-1.0); Globulin 2.5 g/dL (2.4-3.5); Total Protein 6.8 g/dL (6.4-8.9)
--- NOTE | 2018-01-30 13:29 | Discharge Summary ---
<Krishan Delarosa - Last Filed: 01/30/18 14:48> - NOTES TO OUTPATIENT PROVIDER Notes to Outpatient Provider: -Chronic HTN; consider switching atenolol to Coreg 12.5mg BID. -You may wish to continue outpatient work up for dementia as outpt, however, patient oriented x 3, head CT negative, and able to answer questions appropriately and follow commands. -Pulmonary nodule found, recommended repeat CT in 12 months. Date of Encounter: 01/30/18 Time of Encounter: 09:00 - Discharge Diagnosis (1) Confusion Priority: Primary Status: Acute (2) Dementia Priority: Secondary Status: Chronic Qualifiers: Dementia type: Alzheimer's disease Alzheimer's disease onset: late-onset Dementia behavioral disturbance: without behavioral disturbance Qualified Code (s): G30.1 - Alzheimer's disease with late onset; F02.80 - Dementia in other diseases classified elsewhere without behavioral disturbance (3) Essential hypertension Priority: Secondary Status: Acute (4) Total bilirubin, elevated Priority: Secondary Status: Acute (5) Pulmonary nodule Priority: Secondary Status: Acute (6) Type 2 diabetes mellitus Priority: Secondary Status: Chronic Qualifiers: Diabetes mellitus terminal operations manager insulin use: with senior living use Diabetes mellitus complication status: with ophthalmic complications Diabetes mellitus complication detail: with cataract Qualified Code(s): E11.36 - Type 2 diabetes mellitus with diabetic cataract; 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 Alves is a 67 year old male cognitive impairment, atrial fibrillation, DM- II, HTN. Patient referred from PCP's office to [facility] ED for increasing confusion, admitted for increased confusion and not knowing where he was. Known history of dementia, on memantine (for years). had noted increased confusion for the previous 2-3 days, especially when completing tasks. Found to have elevated bilirubin total bilirubin 1.5 ad 1.8, direct bili unchanged during stay at 0.3. Chronic HTN, but acutely elevated up to SBP of 170, BP improved today with BP prior to discharge o 140/90. Discussed option for medication adjustments as patient is uncontrolled on multiple medications; lisinopril, amlodipine, HCTZ, and atenolol. Could consider increasing atenolol or switching to coreg. Denies urinary symptoms. Denies CP or SOB. Denies fever or chills. Denies abdominal pain. In ED pt's workup showed CBC wnl, PT 11.3, INR 1.1 BMP NA 139, K 3.6, Cl 100, BUN 16, Cr 1.02. Glucose 277. T bilirubin 1.5, DR mook 0.3. AST 18, ALT 25, Alk phos 120. UA negative for UTI. ETOH < 10, Acetamoniphen <10. UDS neg CT head non-contrast IMPRESSION: no acute intracranial abnormality Chest x ray IMPRESSION: No acute cardio-pulmonary process. CT abdomen and pelvis IMPRESSION: Area of mild urinary bladder wall thickening. Lingular nodule 0.7cm x 0.3 cm, consider repeat CT in 12 months. Suspected circumferential wall thickening in the distal thoracic esophagus potentially due to esophagitis. Patient is unsure of his dementia diagnosis and histor of confusion, but he has been appropriate today on examination. I spoke to and she agrees that when she has talked to patient today he seemed back to baseline to her. Possibly secondary to worsening dementia vs unknown etiology. However, workup unremarkable and patient is stable and comfortable with discharge home. Discharge discussed with: patient, family, nurse - Time Spent with Patient Total time spent providing and/or coordinating discharge services: Greater than 30 minutes (40mins) - Discharge Medications Home Medications: Amlodipine Besylate 10 mg PO DAILY 07/03/16 [History] Ammonium Lactate 1 appl TP BID 07/03/16 [History] Aspirin 81 mg PO DAILY 07/03/16 [History] Cetirizine HCl [Zyrtec] 10 mg PO DAILY 07/03/16 [History] Cholecalciferol (Vitamin D3) [Vitamin D3] 5,000 unit PO DAILY 07/03/16 [History] Dimethicone [Cerave] 1 appl TP BID 07/03/16 [History] Donepezil HCl [Aricept] 10 mg PO HS 07/03/16 [History] Fluticasone Propionate Nasal [Flonase] 50 - 100 mcg NS DAILY PRN 07/03/16 [ History] Insulin Glargine [Lantus] 32 unit SQ QPM 07/03/16 [History] Insulin Human Regular [HumuLIN R] 0 unit SQ HS MDD Sliding Scale 07/03/16 [ History] Lisinopril [Zestril] 20 mg PO QPM 07/03/16 [History] Lisinopril [Zestril] 40 mg PO QAM 07/03/16 [History] Memantine HCl 10 mg PO BID 07/03/16 [History] Paroxetine [Paxil] 20 mg PO DAILY 07/03/16 [History] Potassium Chloride [K-Tab ER] 20 meq PO BID 07/03/16 [History] Pregabalin [Lyrica] 75 mg PO BID 07/03/16 [History] Saline Nasal [place] [[place] Nasal [place]] 1 - 2 spray NS Q4-6H PRN 07/03/16 [ History] Simvastatin [Zocor] 20 mg PO HS 07/03/16 [History] Thiamine (B-1) [Vitamin B-1] 100 mg PO DAILY 07/03/16 [History] clonazePAM [Klonopin] 0.5 mg PO BID PRN 07/03/16 [History] hydroCHLOROthiazide [Hydrochlorothiazide] 12.5 mg PO DAILY 07/03/16 [History] metFORMIN [Glucophage] 850 mg PO BIDWM 07/03/16 [History] Rivaroxaban [Xarelto] 20 mg PO DAILY #30 tablet 07/04/16 [Rx] Atenolol [Tenormin] 25 mg PO DAILY 01/29/18 [History] Multivitamin [One Daily Multivitamin] 1 tab PO DAILY 01/29/18 [History] OxyCODONE/APAP 5/325 [Percocet 5/325 MG] 1 tab PO Q6HR PRN 01/29/18 [History] Tamsulosin [Flomax] 0.4 mg PO DAILY 01/29/18 [History] Allergies/Adverse Reactions: 3 Allergy/AdvReac Type Severity Reaction Status Date / Time ampicillin Allergy Rash Verified 01/29/18 12:59 Penicillins Allergy Hives Verified 01/29/18 12:59 Date of admission: 01/29/18 17:11 Primary care physician: Madelyn Corona DO Discharging clinician: Caridad Hayden Anticipated date of discharge: 01/30/18 - Constitutional Vitals: Temp Pulse Resp BP Pulse Ox 98.5 F 93 16 140/90 98 01/30/18 11:41 01/30/18 11:41 01/30/18 11:41 01/30/18 11:41 01/30/18 11:41 General appearance: Present: cooperative, A&O X 3, no acute distress, answers questions appropriately (for the most part all questions I asked were answered appropriately.) - Head Head exam: Present: atraumatic, normal inspection, normocephalic - Eye Eye exam: Present: normal appearance, conjuntiva pink, sclera anicteric - ENT ENT exam: Present: mucous membranes moist - Neck Neck exam general surgery: Present: full ROM, normal inspection, supple - Respiratory Respiratory exam: Present: CTAB. Absent: respiratory distress, wheezes - Cardiovascular Cardiovascular exam: Present: RRR, +S1, +S2 - GI/Abdominal GI/Abdominal exam: Present: normal bowel sounds, soft. Absent: distended, guarding, tenderness - Extremities Exam Extremities exam: Present: warm. Absent: pedal edema, tenderness - Neurological Exam Neurological exam: Present: alert, oriented X3. Absent: facial droop, speech deficit - Skin Skin exam: Present: dry (very dry lower extremities with flaky of skin.), warm. 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 Also recommend calling to ensure your neurologist is aware of recent hospitalization and if they would like outpatient follow up. Your Blood Pressure was elevated here at [facility], it is important that your PCP is aware so that they can continue to adjust your medications for better control. Return or seek medical care for any new or worsening symptoms such as worsening confusion, falling, passing out, chest pain, shortness of breath, headaches, vision changes, or inability to perform regular tasks/activity. - Diet and Activity Activity: resume usual activities as tolerated Diet: advance to your usual diet <Caridad Hayden - Last Filed: 01/30/18 16:20> Date of Encounter: 01/30/18 Hospital course: Mr. Alves is a 67 year old male - Time Spent with Patient Total time spent providing and/or coordinating discharge services: Date of admission: 01/29/18 17:11 Primary care physician: Madelyn Corona DO - Constitutional Vitals: Temp Pulse Resp BP Pulse Ox 97.5 F L 76 16 145/92 98 01/30/18 15:06 01/30/18 15:06 01/30/18 15:06 01/30/18 15:06 01/30/18 15:06 - Attending Attestation I saw and examined this patient independently, and my medical decision making was reviewed with the Resident on 2017. I agree with the documented findings, assessment and treatment plan as described in the progress note or discharge summary.
[2018-01-30 15:08] VITALS: BP 145/92
[2018-01-30] MEDS: Lisinopril 20 MG TABLET PO SCH (17:22)
--- NOTE | 2018-01-31 08:53 | Electrocardiograph Report ---
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
== END 2018-01-30 18:36 | disposition home or self-care (01) ==
LOC: EMEROO 12:55 → 2NENU 12:55 → SUATTDRO 17:11 → 2NENU 17:42 → UNDODISOB 01-30 15:20
PROVIDERS: ADMIT Internal Medicine; ATTEND Hospitalist

== ENCOUNTER 2022-01-13 10:46 | Inpatient (IN) ==
[2022-01-13] MEDS ORDERED: Ondansetron ODT 4 MG TAB.RAPDIS SL PRN (13:34)
[2022-01-13] MEDS ORDERED: Acetaminophen 325 MG TABLET PO PRN (13:34)
[2022-01-13] MEDS ORDERED: Naloxone 0.4 MG/ML INJ IVP PRN (13:34)
[2022-01-13] MEDS ORDERED: *HR* LORazepam 0.5 MG TABLET PO PRN (13:50)
[2022-01-13] MEDS ORDERED: *HR* Dextrose 50 % in Water (Syg) 50 ML SYRINGE IVP PRN (13:59)
[2022-01-13] MEDS ORDERED: D5% in Water 1,000 ML IVC PRN (13:59)
[2022-01-13] MEDS ORDERED: Dextrose 4 GM Chewable Tablets PO PRN ×2 (13:59)
[2022-01-13] MEDS ORDERED: Insulin LISPRO 300 UNITS/3 ML VIAL SUBQ SCH ×2 (16:30→21:00)
[2022-01-13] MEDS: Insulin LISPRO 300 UNITS/3 ML VIAL SUBQ SCH (17:41)
[2022-01-13] MEDS: *HR* Rivaroxaban 10 MG TABLET PO SCH (17:46)
[2022-01-13] MEDS: lisinopriL 20 MG TABLET PO SCH (17:46)
[2022-01-13] MEDS ORDERED: Metoprolol XL (24 HR) Succ 50 MG TAB.ER.24H PO SCH (21:00)
[2022-01-13 21:38] LABS: Bilirubin,Urine Negative (Negative); Blood,Urine Large (Negative); Clarity,Urine Turbid (Clear); Glucose,Urine (UA) Normal (Normal); Ketones,Urine Negative (Negative); Leukocyte Esterase,Urine Moderate (Negative); Nitrite,Urine Negative (Negative); Protein,Urine 100 mg/dL (Neg-Trace); Specific Gravity,Urine 1.026 (1.010-1.025); Urobilinogen,Urine Normal (Normal)
[2022-01-13 21:39] LABS: Color,Urine Red (Yellow)
[2022-01-13] MEDS: Hyoscyamine SL 0.125 MG TAB.SUBL PO SCH (21:41)
[2022-01-13] MEDS: Metoprolol XL (24 HR) Succ 50 MG TAB.ER.24H PO SCH (21:41)
[2022-01-13] MEDS: Nystatin POWDER 30 GM BOTTLE TP SCH (21:41)
[2022-01-13] MEDS: risperiDONE 0.25 MG TABLET PO SCH (21:43)
[2022-01-13] MEDS ORDERED: cefTRIAXone 1,000 MG in 0.9 % Sodium Chloride Mini Bag 100 ML IVPB SCH (22:22)
[2022-01-14] MEDS: Insulin LISPRO 300 UNITS/3 ML VIAL SUBQ SCH ×4 (00:23→18:25)
[2022-01-14] MEDS: Ringers Solution, Lactated 1,000 ML IVC SCH ×3 (00:33→11:01)
[2022-01-14 02:40] LABS: Basophils % 0.4 %; Eosinophils # 0.1 K/mcL (0.0-0.6); Eosinophils % 1.4 %; Hematocrit 39.5 % (37.5-50.1); Hemoglobin 12.5 g/dL (12.9-16.9); Lymphocytes # 0.8 K/mcL (0.6-4.6); Mean Corpuscular HGB Conc 31.6 g/dL (31.6-35.5); Mean Corpuscular Hemoglobin 28.7 pg (28.0-33.3); Mean Corpuscular Volume 90.8 fL (83.0-100.0); Mean Platelet Volume 10.6 fL (9.4-12.4); Monocytes # 0.6 K/mcL (0.0-1.3); Monocytes % 6.3 %; Platelet Count 265 K/mcL (140-400); Red Blood Count 4.35 M/mcL (4.19-5.50); Red Cell Distribution Width 14.5 % (11.5-14.5); Segmented Neutrophils % 82.9 %; White Blood Count 9.7 K/mcL (4.3-11.1)
[2022-01-14 02:46] LABS: INR 3.6; Prothrombin Time 40.3 Seconds (9.4-12.1)
[2022-01-14 02:57] LABS: Magnesium 1.5 mg/dL (1.6-2.6); Phosphorous 2.5 mg/dL (2.7-4.5)
[2022-01-14 03:00] LABS: BUN/Creatinine Ratio 28 (6-26); Blood Urea Nitrogen 16 mg/dL (8-23); Calcium 8.8 mg/dL (8.6-10.3); Carbon Dioxide 23 mEq/L (23-29); Chloride 110 mEq/L (98-107); Chol/HDL Ratio 3.1 (0-4.9); Cholesterol 75 mg/dL (< 200); Glucose 151 mg/dL (70-105); HDL Cholesterol 24 mg/dL (40-59); LDL Cholesterol,Calculated 29 mg/dL (< 100); Osmolality,Calculated 294 (280-300); Potassium 3.5 mEq/L (3.5-5.1); Sodium 140 mEq/L (136-145); Triglycerides 111 mg/dL (< 150); eGFR For African Americans > 60 (> 60); eGFR For Non-African Americans > 60 (> 60)
[2022-01-14] MEDS: Hyoscyamine SL 0.125 MG TAB.SUBL PO SCH ×2 (07:38→20:59)
[2022-01-14] MEDS: Insulin DETEMIR 100 UNIT/ML X5UNITS SUBQ SCH (08:10)
[2022-01-14] MEDS: risperiDONE 1 MG TABLET PO SCH (08:21)
[2022-01-14] MEDS: *HR* Digoxin 0.125 MG TABLET PO SCH (08:21)
[2022-01-14] MEDS: Metoprolol XL (24 HR) Succ 50 MG TAB.ER.24H PO SCH ×2 (08:21→20:59)
[2022-01-14] MEDS: MetroNIDAZOLE 500 MG/100 ML 500 MG/100 ML BAG IVPB SCH ×2 (08:38→18:22)
[2022-01-14] MEDS: levoFLOXacin 750 MG/150 ML 750 MG/150 ML BAG IVPB SCH (08:46)
[2022-01-14] MEDS: Nystatin POWDER 30 GM BOTTLE TP SCH ×3 (08:51→20:45)
[2022-01-14] MEDS ORDERED: Potassium Phosphate 44 MEQ in 0.9 % Sodium Chloride 250 ML IVPB ONE (09:23)
[2022-01-14 09:30] LABS: Estimated Average Glucose 160 mg/dl; Hemoglobin A1C 7.2 %
[2022-01-14] MEDS: Pregabalin 75 MG CAPSULE PO SCH (12:52)
[2022-01-14] MEDS: *HR* Rivaroxaban 10 MG TABLET PO SCH (18:22)
[2022-01-14] MEDS: lisinopriL 20 MG TABLET PO SCH (18:22)
[2022-01-14] MEDS: risperiDONE 0.25 MG TABLET PO SCH (20:59)
[2022-01-14] MEDS ORDERED: hydrALAZINE 10 MG TABLET PO PRN (23:21)
[2022-01-15] MEDS: MetroNIDAZOLE 500 MG/100 ML 500 MG/100 ML BAG IVPB SCH ×3 (00:02→15:38)
[2022-01-15] MEDS: Ringers Solution, Lactated 1,000 ML IVC SCH (02:50)
[2022-01-15] MEDS: Insulin LISPRO 300 UNITS/3 ML VIAL SUBQ SCH ×4 (02:59→18:25)
[2022-01-15 07:18] LABS: Basophils # 0.1 K/mcL (0.0-0.2); Basophils % 0.7 %; Eosinophils # 0.2 K/mcL (0.0-0.6); Eosinophils % 1.9 %; Hematocrit 41.8 % (37.5-50.1); Hemoglobin 13.1 g/dL (12.9-16.9); Immature Granulocytes % 1.6 % (0-4); Lymphocytes # 0.7 K/mcL (0.6-4.6); Lymphocytes % 7.9 %; Mean Corpuscular HGB Conc 31.3 g/dL (31.6-35.5); Mean Corpuscular Hemoglobin 28.8 pg (28.0-33.3); Mean Corpuscular Volume 91.9 fL (83.0-100.0); Mean Platelet Volume 10.6 fL (9.4-12.4); Monocytes # 0.6 K/mcL (0.0-1.3); Monocytes % 6.8 %; Platelet Count 233 K/mcL (140-400); Red Blood Count 4.55 M/mcL (4.19-5.50); Red Cell Distribution Width 14.6 % (11.5-14.5); Segmented Neutrophils % 81.1 %; White Blood Count 8.6 K/mcL (4.3-11.1)
[2022-01-15 07:37] LABS: BUN/Creatinine Ratio 20 (6-26); Blood Urea Nitrogen 12 mg/dL (8-23); Calcium 8.1 mg/dL (8.6-10.3); Carbon Dioxide 24 mEq/L (23-29); Chloride 107 mEq/L (98-107); Glucose 245 mg/dL (70-105); Magnesium 1.7 mg/dL (1.6-2.6); Osmolality,Calculated 294 (280-300); Sodium 138 mEq/L (136-145); eGFR For African Americans > 60 (> 60); eGFR For Non-African Americans > 60 (> 60)
[2022-01-15] MEDS: levoFLOXacin 750 MG/150 ML 750 MG/150 ML BAG IVPB SCH (08:54)
[2022-01-15] MEDS: risperiDONE 1 MG TABLET PO SCH (08:56)
[2022-01-15] MEDS: *HR* Digoxin 0.125 MG TABLET PO SCH (08:56)
[2022-01-15] MEDS: Metoprolol XL (24 HR) Succ 50 MG TAB.ER.24H PO SCH ×2 (08:56→19:44)
[2022-01-15] MEDS: Hyoscyamine SL 0.125 MG TAB.SUBL PO SCH ×2 (08:57→19:44)
[2022-01-15] MEDS: Pregabalin 75 MG CAPSULE PO SCH (08:57)
[2022-01-15] MEDS: Nystatin POWDER 30 GM BOTTLE TP SCH ×3 (09:15→19:46)
[2022-01-15] MEDS: Insulin DETEMIR 100 UNIT/ML X5UNITS SUBQ SCH (09:21)
[2022-01-15] MEDS: *HR* Rivaroxaban 10 MG TABLET PO SCH (18:43)
[2022-01-15] MEDS: lisinopriL 20 MG TABLET PO SCH (18:43)
[2022-01-15] MEDS: risperiDONE 0.25 MG TABLET PO SCH (19:44)
[2022-01-16] MEDS: MetroNIDAZOLE 500 MG/100 ML 500 MG/100 ML BAG IVPB SCH ×3 (00:55→16:16)
[2022-01-16] MEDS: Insulin LISPRO 300 UNITS/3 ML VIAL SUBQ SCH ×5 (00:56→18:27)
[2022-01-16 06:56] LABS: Basophils % 0.3 %; Eosinophils # 0.1 K/mcL (0.0-0.6); Hematocrit 39.9 % (37.5-50.1); Hemoglobin 12.7 g/dL (12.9-16.9); Immature Granulocytes % 1.5 % (0-4); Lymphocytes # 0.7 K/mcL (0.6-4.6); Lymphocytes % 7.3 %; Mean Corpuscular HGB Conc 31.8 g/dL (31.6-35.5); Mean Corpuscular Hemoglobin 28.3 pg (28.0-33.3); Mean Corpuscular Volume 88.9 fL (83.0-100.0); Mean Platelet Volume 10.5 fL (9.4-12.4); Monocytes # 0.6 K/mcL (0.0-1.3); Monocytes % 6.2 %; Platelet Count 252 K/mcL (140-400); Red Blood Count 4.49 M/mcL (4.19-5.50); Red Cell Distribution Width 14.5 % (11.5-14.5); Segmented Neutrophils % 83.7 %; White Blood Count 9.6 K/mcL (4.3-11.1)
[2022-01-16] MEDS: *HR* Digoxin 0.125 MG TABLET PO SCH (09:04)
[2022-01-16] MEDS: Hyoscyamine SL 0.125 MG TAB.SUBL PO SCH ×2 (09:05→20:55)
[2022-01-16] MEDS: Metoprolol XL (24 HR) Succ 50 MG TAB.ER.24H PO SCH ×2 (09:05→20:56)
[2022-01-16] MEDS: Pregabalin 75 MG CAPSULE PO SCH (09:05)
[2022-01-16] MEDS: Nystatin POWDER 30 GM BOTTLE TP SCH ×3 (09:07→20:57)
[2022-01-16] MEDS: Insulin DETEMIR 100 UNIT/ML X5UNITS SUBQ SCH (09:39)
[2022-01-16] MEDS: cefTRIAXone 1,000 MG in 0.9 % Sodium Chloride 10 ML IVP SCH (10:39)
[2022-01-16 13:37] LABS: BUN/Creatinine Ratio 13 (6-26); Blood Urea Nitrogen 8 mg/dL (8-23); Carbon Dioxide 26 mEq/L (23-29); Chloride 106 mEq/L (98-107); Glucose 239 mg/dL (70-105); Magnesium 1.3 mg/dL (1.6-2.6); Osmolality,Calculated 294 (280-300); Potassium 2.4 mEq/L (3.5-5.1); Sodium 139 mEq/L (136-145); eGFR For African Americans > 60 (> 60); eGFR For Non-African Americans > 60 (> 60)
[2022-01-16] MEDS ORDERED: risperiDONE 1 MG TABLET PO SCH (15:00)
[2022-01-16] MEDS: *HR* Rivaroxaban 10 MG TABLET PO SCH (16:15)
[2022-01-16] MEDS: lisinopriL 20 MG TABLET PO SCH (16:15)
[2022-01-16] MEDS: risperiDONE 0.25 MG TABLET PO SCH (20:55)
[2022-01-16] MEDS: Melatonin 3 MG TABLET PO PRN (20:57)
[2022-01-16] MEDS ORDERED: Insulin LISPRO 300 UNITS/3 ML VIAL SUBQ SCH (21:00)
[2022-01-17] MEDS: MetroNIDAZOLE 500 MG/100 ML 500 MG/100 ML BAG IVPB SCH ×4 (00:19→23:15)
[2022-01-17 04:06] LABS: Basophils % 0.3 %; Eosinophils # 0.1 K/mcL (0.0-0.6); Eosinophils % 1.1 %; Hemoglobin 11.6 g/dL (12.9-16.9); Immature Granulocytes % 2.3 % (0-4); Lymphocytes # 0.8 K/mcL (0.6-4.6); Lymphocytes % 7.7 %; Mean Corpuscular HGB Conc 32.2 g/dL (31.6-35.5); Mean Corpuscular Hemoglobin 28.2 pg (28.0-33.3); Mean Corpuscular Volume 87.6 fL (83.0-100.0); Mean Platelet Volume 10.9 fL (9.4-12.4); Monocytes # 0.7 K/mcL (0.0-1.3); Monocytes % 7.3 %; Neutrophils # 8.1 K/mcL (1.6-8.9); Platelet Count 231 K/mcL (140-400); Red Blood Count 4.11 M/mcL (4.19-5.50); Red Cell Distribution Width 14.4 % (11.5-14.5); Segmented Neutrophils % 81.3 %
[2022-01-17 04:22] LABS: BUN/Creatinine Ratio 14 (6-26); Blood Urea Nitrogen 10 mg/dL (8-23); Calcium 7.9 mg/dL (8.6-10.3); Carbon Dioxide 28 mEq/L (23-29); Chloride 104 mEq/L (98-107); Glucose 258 mg/dL (70-105); Magnesium 1.6 mg/dL (1.6-2.6); Osmolality,Calculated 294 (280-300); Potassium 2.6 mEq/L (3.5-5.1); Sodium 138 mEq/L (136-145); eGFR For African Americans > 60 (> 60); eGFR For Non-African Americans > 60 (> 60)
[2022-01-17] MEDS: cefTRIAXone 1,000 MG in 0.9 % Sodium Chloride 10 ML IVP SCH (08:08)
[2022-01-17] MEDS: Pregabalin 75 MG CAPSULE PO SCH (08:09)
[2022-01-17] MEDS: *HR* Digoxin 0.125 MG TABLET PO SCH (08:09)
[2022-01-17] MEDS: Hyoscyamine SL 0.125 MG TAB.SUBL PO SCH ×2 (08:09→20:46)
[2022-01-17] MEDS: Metoprolol XL (24 HR) Succ 50 MG TAB.ER.24H PO SCH ×2 (08:09→20:46)
[2022-01-17] MEDS: Insulin LISPRO 300 UNITS/3 ML VIAL SUBQ SCH ×4 (08:11→20:47)
[2022-01-17] MEDS: Nystatin POWDER 30 GM BOTTLE TP SCH ×3 (08:11→21:38)
[2022-01-17] MEDS: Insulin DETEMIR 100 UNIT/ML X5UNITS SUBQ SCH (08:24)
[2022-01-17] MEDS: *HR* Rivaroxaban 10 MG TABLET PO SCH (16:15)
[2022-01-17] MEDS: lisinopriL 20 MG TABLET PO SCH (16:15)
[2022-01-17] MEDS: risperiDONE 0.25 MG TABLET PO SCH (20:46)
[2022-01-17 21:46] LABS: BUN/Creatinine Ratio 13 (6-26); Blood Urea Nitrogen 8 mg/dL (8-23); Carbon Dioxide 26 mEq/L (23-29); Chloride 104 mEq/L (98-107); Glucose 307 mg/dL (70-105); Magnesium 1.5 mg/dL (1.6-2.6); Osmolality,Calculated 292 (280-300); Phosphorous 2.1 mg/dL (2.7-4.5); Sodium 136 mEq/L (136-145); eGFR For African Americans > 60 (> 60); eGFR For Non-African Americans > 60 (> 60)
[2022-01-17] MEDS ORDERED: Potassium Phosphate 44 MEQ in 0.9 % Sodium Chloride 250 ML IVPB ONE (22:16)
[2022-01-17] MEDS: Calcium Gluconate 1gm/50mL 1 GM/50 ML BAG IVPB SCH (23:15)
[2022-01-18] MEDS: Calcium Gluconate 1gm/50mL 1 GM/50 ML BAG IVPB SCH (00:13)
[2022-01-18 03:11] LABS: BUN/Creatinine Ratio 13 (6-26); Blood Urea Nitrogen 8 mg/dL (8-23); Calcium 8.5 mg/dL (8.6-10.3); Carbon Dioxide 29 mEq/L (23-29); Chloride 105 mEq/L (98-107); Glucose 208 mg/dL (70-105); Osmolality,Calculated 294 (280-300); Sodium 140 mEq/L (136-145); eGFR For African Americans > 60 (> 60); eGFR For Non-African Americans > 60 (> 60)
[2022-01-18] MEDS: MetroNIDAZOLE 500 MG/100 ML 500 MG/100 ML BAG IVPB SCH ×2 (08:06→17:13)
[2022-01-18] MEDS: Insulin LISPRO 300 UNITS/3 ML VIAL SUBQ SCH ×4 (08:06→21:02)
[2022-01-18] MEDS: Pregabalin 75 MG CAPSULE PO SCH (08:07)
[2022-01-18] MEDS: Nystatin POWDER 30 GM BOTTLE TP SCH ×3 (08:07→21:02)
[2022-01-18] MEDS: *HR* Digoxin 0.125 MG TABLET PO SCH (08:07)
[2022-01-18] MEDS: cefTRIAXone 1,000 MG in 0.9 % Sodium Chloride 10 ML IVP SCH (08:08)
[2022-01-18] MEDS: Hyoscyamine SL 0.125 MG TAB.SUBL PO SCH ×2 (08:08→20:59)
[2022-01-18] MEDS: carvediloL 25 MG TABLET PO SCH ×2 (08:08→17:13)
[2022-01-18] MEDS: Insulin DETEMIR 100 UNIT/ML X5UNITS SUBQ SCH (08:12)
[2022-01-18] MEDS: lisinopriL 20 MG TABLET PO SCH (17:12)
[2022-01-18] MEDS: *HR* Rivaroxaban 10 MG TABLET PO SCH (17:12)
[2022-01-18] MEDS: risperiDONE 0.25 MG TABLET PO SCH (20:59)
[2022-01-19] MEDS: MetroNIDAZOLE 500 MG/100 ML 500 MG/100 ML BAG IVPB SCH ×3 (01:06→16:57)
[2022-01-19 03:29] LABS: BUN/Creatinine Ratio 18 (6-26); Blood Urea Nitrogen 8 mg/dL (8-23); Calcium 8.2 mg/dL (8.6-10.3); Carbon Dioxide 27 mEq/L (23-29); Chloride 104 mEq/L (98-107); Glucose 185 mg/dL (70-105); Magnesium 1.6 mg/dL (1.6-2.6); Osmolality,Calculated 289 (280-300); Phosphorous 2.9 mg/dL (2.7-4.5); Potassium 3.4 mEq/L (3.5-5.1); Sodium 138 mEq/L (136-145); eGFR For African Americans > 60 (> 60); eGFR For Non-African Americans > 60 (> 60)
[2022-01-19] MEDS: carvediloL 25 MG TABLET PO SCH ×2 (07:51→16:57)
[2022-01-19] MEDS: Hyoscyamine SL 0.125 MG TAB.SUBL PO SCH ×2 (07:51→21:41)
[2022-01-19] MEDS: Pregabalin 75 MG CAPSULE PO SCH (07:51)
[2022-01-19] MEDS: *HR* Digoxin 0.125 MG TABLET PO SCH (07:51)
[2022-01-19] MEDS: cefTRIAXone 1,000 MG in 0.9 % Sodium Chloride 10 ML IVP SCH (07:52)
[2022-01-19] MEDS: Nystatin POWDER 30 GM BOTTLE TP SCH ×3 (07:54→21:43)
[2022-01-19] MEDS: Insulin LISPRO 300 UNITS/3 ML VIAL SUBQ SCH ×4 (08:25→21:42)
[2022-01-19] MEDS: Insulin DETEMIR 100 UNIT/ML X5UNITS SUBQ SCH (08:26)
[2022-01-19 13:19] LABS: Adenovirus F 40/41 PCR Not detected (Not detect); Astrovirus PCR Not detected (Not detect); C.difficile Toxin A/B Gene PCR Not detected (Not detect); Campylobacter by PCR Not detected (Not detect); Cryptosporidium by PCR Not detected (Not detect); Cyclospora cayetanensis PCR Not detected (Not detect); Entamoeba histolytica PCR Not detected (Not detect); Enteroaggregative E.coli(EAEC) Not detected (Not detect); Enteropathogenic E.coli(EPEC) Not detected (Not detect); Enterotoxigenic E.coli (ETEC) Not detected (Not detect); Giardia lamblia PCR Not detected (Not detect); Norovirus GI/GII PCR Not detected (Not detect); Plesiomonas shigelloides PCR Not detected (Not detect); Rotavirus A PCR Not detected (Not detect); Salmonella PCR Not detected (Not detect); Sapovirus PCR Not detected (Not detect); Shig/EnteroinvasiveE coli EIEC Not detected (Not detect); Shigalike tox-prod E coli STEC Not detected (Not detect); Vibrio PCR Not detected (Not detect); Vibrio cholerae PCR Not detected (Not detect); Yersinia enterocolitica PCR Not detected (Not detect)
[2022-01-19] MEDS: lisinopriL 20 MG TABLET PO SCH (16:57)
[2022-01-19] MEDS: *HR* Rivaroxaban 10 MG TABLET PO SCH (16:57)
[2022-01-19] MEDS: risperiDONE 0.25 MG TABLET PO SCH (21:41)
[2022-01-20] MEDS: *HR* Digoxin 0.125 MG TABLET PO SCH (08:52)
[2022-01-20] MEDS: Hyoscyamine SL 0.125 MG TAB.SUBL PO SCH ×2 (08:52→21:25)
[2022-01-20] MEDS: carvediloL 25 MG TABLET PO SCH ×2 (08:52→16:42)
[2022-01-20] MEDS: Pregabalin 75 MG CAPSULE PO SCH (08:52)
[2022-01-20] MEDS: Nystatin POWDER 30 GM BOTTLE TP SCH ×3 (08:53→21:52)
[2022-01-20] MEDS: Insulin LISPRO 300 UNITS/3 ML VIAL SUBQ SCH ×4 (08:53→21:26)
[2022-01-20] MEDS: Insulin DETEMIR 100 UNIT/ML X5UNITS SUBQ SCH (12:43)
[2022-01-20] MEDS: hydrALAZINE 25 MG TABLET PO SCH ×2 (16:41→23:35)
[2022-01-20] MEDS: *HR* Rivaroxaban 10 MG TABLET PO SCH (16:41)
[2022-01-20] MEDS: lisinopriL 20 MG TABLET PO SCH (16:42)
[2022-01-20] MEDS: risperiDONE 0.25 MG TABLET PO SCH (21:25)
[2022-01-21 02:32] LABS: BUN/Creatinine Ratio 19 (6-26); Blood Urea Nitrogen 11 mg/dL (8-23); Calcium 8.6 mg/dL (8.6-10.3); Carbon Dioxide 31 mEq/L (23-29); Chloride 100 mEq/L (98-107); Glucose 147 mg/dL (70-105); Osmolality,Calculated 284 (280-300); Potassium 3.9 mEq/L (3.5-5.1); Sodium 136 mEq/L (136-145); eGFR For African Americans > 60 (> 60); eGFR For Non-African Americans > 60 (> 60)
[2022-01-21] MEDS: Insulin LISPRO 300 UNITS/3 ML VIAL SUBQ SCH ×4 (08:38→20:30)
[2022-01-21] MEDS: Hyoscyamine SL 0.125 MG TAB.SUBL PO SCH ×2 (08:39→20:32)
[2022-01-21] MEDS: carvediloL 25 MG TABLET PO SCH ×2 (08:40→17:21)
[2022-01-21] MEDS: Pregabalin 75 MG CAPSULE PO SCH (08:40)
[2022-01-21] MEDS: hydrALAZINE 25 MG TABLET PO SCH ×3 (08:40→23:14)
[2022-01-21] MEDS: *HR* Digoxin 0.125 MG TABLET PO SCH (08:41)
[2022-01-21] MEDS: Nystatin POWDER 30 GM BOTTLE TP SCH ×3 (08:41→20:31)
[2022-01-21] MEDS: Insulin DETEMIR 100 UNIT/ML X5UNITS SUBQ SCH (09:11)
[2022-01-21] MEDS: lisinopriL 20 MG TABLET PO SCH (17:22)
[2022-01-21] MEDS: *HR* Rivaroxaban 10 MG TABLET PO SCH (17:22)
[2022-01-21] MEDS: risperiDONE 0.25 MG TABLET PO SCH (20:31)
[2022-01-22 02:23] LABS: BUN/Creatinine Ratio 25 (6-26); Blood Urea Nitrogen 14 mg/dL (8-23); Carbon Dioxide 31 mEq/L (23-29); Chloride 103 mEq/L (98-107); Glucose 108 mg/dL (70-105); Osmolality,Calculated 287 (280-300); Potassium 3.8 mEq/L (3.5-5.1); Sodium 138 mEq/L (136-145); eGFR For African Americans > 60 (> 60); eGFR For Non-African Americans > 60 (> 60)
[2022-01-22] MEDS: Insulin LISPRO 300 UNITS/3 ML VIAL SUBQ SCH ×4 (07:52→20:19)
[2022-01-22] MEDS: hydrALAZINE 25 MG TABLET PO SCH ×3 (07:59→23:02)
[2022-01-22] MEDS: Hyoscyamine SL 0.125 MG TAB.SUBL PO SCH ×2 (08:01→20:18)
[2022-01-22] MEDS: carvediloL 25 MG TABLET PO SCH ×2 (08:01→16:33)
[2022-01-22] MEDS: *HR* Digoxin 0.125 MG TABLET PO SCH (08:01)
[2022-01-22] MEDS: Pregabalin 75 MG CAPSULE PO SCH (08:01)
[2022-01-22] MEDS: Insulin DETEMIR 100 UNIT/ML X5UNITS SUBQ SCH (08:25)
[2022-01-22] MEDS: Nystatin POWDER 30 GM BOTTLE TP SCH ×3 (10:28→20:36)
[2022-01-22] MEDS: lisinopriL 20 MG TABLET PO SCH (17:56)
[2022-01-22] MEDS: *HR* Rivaroxaban 10 MG TABLET PO SCH (17:56)
[2022-01-22] MEDS: risperiDONE 0.25 MG TABLET PO SCH (22:25)
[2022-01-23] MEDS: Insulin LISPRO 300 UNITS/3 ML VIAL SUBQ SCH ×4 (08:22→21:00)
[2022-01-23] MEDS: *HR* Digoxin 0.125 MG TABLET PO SCH (08:22)
[2022-01-23] MEDS: carvediloL 25 MG TABLET PO SCH ×2 (08:22→16:17)
[2022-01-23] MEDS: hydrALAZINE 25 MG TABLET PO SCH ×3 (08:22→23:47)
[2022-01-23] MEDS: Hyoscyamine SL 0.125 MG TAB.SUBL PO SCH ×2 (08:22→20:52)
[2022-01-23] MEDS: Psyllium 1 PACKET POWD.PACK PO SCH ×3 (08:23→20:52)
[2022-01-23] MEDS: Nystatin POWDER 30 GM BOTTLE TP SCH ×3 (08:23→20:59)
[2022-01-23] MEDS: Pregabalin 75 MG CAPSULE PO SCH (08:23)
[2022-01-23] MEDS: Insulin DETEMIR 100 UNIT/ML X5UNITS SUBQ SCH (08:24)
[2022-01-23] MEDS: *HR* Rivaroxaban 10 MG TABLET PO SCH (18:13)
[2022-01-23] MEDS: lisinopriL 20 MG TABLET PO SCH (18:13)
[2022-01-23] MEDS: risperiDONE 0.25 MG TABLET PO SCH (20:50)
[2022-01-23] MEDS: Melatonin 3 MG TABLET PO PRN (20:52)
[2022-01-24] MEDS: Insulin LISPRO 300 UNITS/3 ML VIAL SUBQ SCH ×3 (08:43→21:43)
[2022-01-24] MEDS: hydrALAZINE 25 MG TABLET PO SCH ×3 (08:50→23:59)
[2022-01-24] MEDS: Hyoscyamine SL 0.125 MG TAB.SUBL PO SCH ×2 (08:50→21:02)
[2022-01-24] MEDS: Pregabalin 75 MG CAPSULE PO SCH (08:50)
[2022-01-24] MEDS: carvediloL 25 MG TABLET PO SCH ×2 (08:50→17:00)
[2022-01-24] MEDS: *HR* Digoxin 0.125 MG TABLET PO SCH (08:51)
[2022-01-24] MEDS: Nystatin POWDER 30 GM BOTTLE TP SCH ×3 (08:51→21:01)
[2022-01-24] MEDS: Psyllium 1 PACKET POWD.PACK PO SCH ×3 (08:51→21:01)
[2022-01-24] MEDS: Insulin DETEMIR 100 UNIT/ML X5UNITS SUBQ SCH (09:50)
[2022-01-24] MEDS: *HR* Rivaroxaban 10 MG TABLET PO SCH (17:00)
[2022-01-24] MEDS: lisinopriL 20 MG TABLET PO SCH (17:00)
[2022-01-24] MEDS: Melatonin 3 MG TABLET PO PRN (21:03)
[2022-01-24] MEDS: risperiDONE 0.25 MG TABLET PO SCH (21:04)
[2022-01-25] MEDS: Pregabalin 75 MG CAPSULE PO SCH (08:05)
[2022-01-25] MEDS: Psyllium 1 PACKET POWD.PACK PO SCH ×3 (08:05→20:14)
[2022-01-25] MEDS: *HR* Digoxin 0.125 MG TABLET PO SCH (08:05)
[2022-01-25] MEDS: Hyoscyamine SL 0.125 MG TAB.SUBL PO SCH ×2 (08:05→20:12)
[2022-01-25] MEDS: hydrALAZINE 25 MG TABLET PO SCH ×2 (08:05→15:28)
[2022-01-25] MEDS: Insulin LISPRO 300 UNITS/3 ML VIAL SUBQ SCH ×5 (08:06→20:14)
[2022-01-25] MEDS: carvediloL 25 MG TABLET PO SCH ×2 (08:06→15:28)
[2022-01-25] MEDS: Nystatin POWDER 30 GM BOTTLE TP SCH ×3 (08:07→20:15)
[2022-01-25] MEDS: Insulin DETEMIR 100 UNIT/ML X5UNITS SUBQ SCH (08:09)
[2022-01-25] MEDS: *HR* Rivaroxaban 10 MG TABLET PO SCH (16:58)
[2022-01-25] MEDS: lisinopriL 20 MG TABLET PO SCH (16:59)
[2022-01-25] MEDS: risperiDONE 0.25 MG TABLET PO SCH (19:00)
[2022-01-26] MEDS: hydrALAZINE 25 MG TABLET PO SCH ×4 (01:06→23:26)
[2022-01-26] MEDS: Hyoscyamine SL 0.125 MG TAB.SUBL PO SCH ×2 (07:29→20:51)
[2022-01-26] MEDS: Pregabalin 75 MG CAPSULE PO SCH (07:29)
[2022-01-26] MEDS: carvediloL 25 MG TABLET PO SCH ×2 (07:29→17:14)
[2022-01-26] MEDS: *HR* Digoxin 0.125 MG TABLET PO SCH (07:29)
[2022-01-26] MEDS: Insulin LISPRO 300 UNITS/3 ML VIAL SUBQ SCH ×4 (07:30→21:09)
[2022-01-26] MEDS: Nystatin POWDER 30 GM BOTTLE TP SCH ×3 (07:30→21:06)
[2022-01-26] MEDS: Psyllium 1 PACKET POWD.PACK PO SCH ×3 (07:30→21:03)
[2022-01-26] MEDS: Insulin DETEMIR 100 UNIT/ML X5UNITS SUBQ SCH (09:20)
[2022-01-26] MEDS: risperiDONE 0.25 MG TABLET PO SCH ×2 (15:00→17:19)
[2022-01-26] MEDS: lisinopriL 20 MG TABLET PO SCH (17:20)
[2022-01-26] MEDS: *HR* Rivaroxaban 10 MG TABLET PO SCH (17:20)
[2022-01-27 03:26] LABS: Basophils % 0.3 %; Eosinophils # 0.2 K/mcL (0.0-0.6); Eosinophils % 2.9 %; Hematocrit 33.9 % (37.5-50.1); Hemoglobin 10.5 g/dL (12.9-16.9); Immature Granulocytes % 0.7 % (0-4); Lymphocytes # 1.1 K/mcL (0.6-4.6); Lymphocytes % 15.6 %; Mean Corpuscular Hemoglobin 27.6 pg (28.0-33.3); Mean Corpuscular Volume 89.2 fL (83.0-100.0); Mean Platelet Volume 10.6 fL (9.4-12.4); Monocytes # 0.7 K/mcL (0.0-1.3); Monocytes % 9.1 %; Neutrophils # 5.2 K/mcL (1.6-8.9); Platelet Count 270 K/mcL (140-400); Red Cell Distribution Width 14.6 % (11.5-14.5); Segmented Neutrophils % 71.4 %; White Blood Count 7.3 K/mcL (4.3-11.1)
[2022-01-27 03:46] LABS: BUN/Creatinine Ratio 21 (6-26); Blood Urea Nitrogen 11 mg/dL (8-23); Carbon Dioxide 30 mEq/L (23-29); Chloride 102 mEq/L (98-107); Glucose 149 mg/dL (70-105); Osmolality,Calculated 288 (280-300); Potassium 3.9 mEq/L (3.5-5.1); Sodium 138 mEq/L (136-145); eGFR For African Americans > 60 (> 60); eGFR For Non-African Americans > 60 (> 60)
[2022-01-27] MEDS: Insulin LISPRO 300 UNITS/3 ML VIAL SUBQ SCH ×4 (07:56→21:17)
[2022-01-27] MEDS: Hyoscyamine SL 0.125 MG TAB.SUBL PO SCH ×2 (07:57→21:17)
[2022-01-27] MEDS: Pregabalin 75 MG CAPSULE PO SCH (07:57)
[2022-01-27] MEDS: carvediloL 25 MG TABLET PO SCH ×2 (07:57→17:50)
[2022-01-27] MEDS: hydrALAZINE 25 MG TABLET PO SCH ×2 (07:58→17:50)
[2022-01-27] MEDS: Psyllium 1 PACKET POWD.PACK PO SCH ×3 (07:59→21:17)
[2022-01-27] MEDS: Nystatin POWDER 30 GM BOTTLE TP SCH ×3 (07:59→21:17)
[2022-01-27] MEDS: *HR* Digoxin 0.125 MG TABLET PO SCH (07:59)
[2022-01-27] MEDS: Insulin DETEMIR 100 UNIT/ML X5UNITS SUBQ SCH (08:17)
[2022-01-27] MEDS: risperiDONE 0.25 MG TABLET PO SCH (14:49)
[2022-01-27] MEDS: *HR* Rivaroxaban 10 MG TABLET PO SCH (17:49)
[2022-01-27] MEDS: lisinopriL 20 MG TABLET PO SCH (17:50)
[2022-01-28] MEDS: hydrALAZINE 25 MG TABLET PO SCH ×3 (00:04→14:39)
[2022-01-28] MEDS: Insulin LISPRO 300 UNITS/3 ML VIAL SUBQ SCH ×4 (08:26→21:15)
[2022-01-28] MEDS: Pregabalin 75 MG CAPSULE PO SCH (08:34)
[2022-01-28] MEDS: carvediloL 25 MG TABLET PO SCH ×2 (08:34→16:23)
[2022-01-28] MEDS: Psyllium 1 PACKET POWD.PACK PO SCH ×3 (08:34→20:58)
[2022-01-28] MEDS: Insulin DETEMIR 100 UNIT/ML X5UNITS SUBQ SCH (08:34)
[2022-01-28] MEDS: *HR* Digoxin 0.125 MG TABLET PO SCH (08:34)
[2022-01-28] MEDS: Nystatin POWDER 30 GM BOTTLE TP SCH ×3 (08:35→21:15)
[2022-01-28] MEDS: Hyoscyamine SL 0.125 MG TAB.SUBL PO SCH ×2 (08:35→20:56)
[2022-01-28] MEDS: risperiDONE 0.25 MG TABLET PO SCH (14:39)
[2022-01-28] MEDS: lisinopriL 20 MG TABLET PO SCH (16:23)
[2022-01-28] MEDS: *HR* Rivaroxaban 10 MG TABLET PO SCH (16:23)
[2022-01-28] MEDS: Melatonin 3 MG TABLET PO PRN (20:56)
[2022-01-29] MEDS: hydrALAZINE 25 MG TABLET PO SCH ×3 (00:11→15:49)
[2022-01-29] MEDS: Hyoscyamine SL 0.125 MG TAB.SUBL PO SCH ×2 (08:15→20:13)
[2022-01-29] MEDS: Psyllium 1 PACKET POWD.PACK PO SCH ×3 (08:15→20:12)
[2022-01-29] MEDS: carvediloL 25 MG TABLET PO SCH ×2 (08:16→17:28)
[2022-01-29] MEDS: Pregabalin 75 MG CAPSULE PO SCH (08:16)
[2022-01-29] MEDS: *HR* Digoxin 0.125 MG TABLET PO SCH (08:16)
[2022-01-29] MEDS: Insulin DETEMIR 100 UNIT/ML X5UNITS SUBQ SCH (08:34)
[2022-01-29] MEDS: Nystatin POWDER 30 GM BOTTLE TP SCH ×3 (08:34→20:14)
[2022-01-29] MEDS: Insulin LISPRO 300 UNITS/3 ML VIAL SUBQ SCH ×4 (08:34→20:12)
[2022-01-29] MEDS: risperiDONE 0.25 MG TABLET PO SCH (15:49)
[2022-01-29] MEDS: *HR* Rivaroxaban 10 MG TABLET PO SCH (17:36)
[2022-01-29] MEDS: lisinopriL 20 MG TABLET PO SCH (17:37)
[2022-01-30] MEDS: hydrALAZINE 25 MG TABLET PO SCH ×4 (01:45→23:58)
[2022-01-30 01:51] LABS: Basophils % 0.2 %; Eosinophils # 0.2 K/mcL (0.0-0.6); Eosinophils % 2.1 %; Hemoglobin 11.5 g/dL (12.9-16.9); Immature Granulocytes % 0.4 % (0-4); Lymphocytes % 12.2 %; Mean Corpuscular HGB Conc 31.1 g/dL (31.6-35.5); Mean Corpuscular Hemoglobin 28.3 pg (28.0-33.3); Mean Corpuscular Volume 91.1 fL (83.0-100.0); Mean Platelet Volume 10.5 fL (9.4-12.4); Monocytes # 0.6 K/mcL (0.0-1.3); Monocytes % 7.4 %; Neutrophils # 6.5 K/mcL (1.6-8.9); Platelet Count 228 K/mcL (140-400); Red Blood Count 4.06 M/mcL (4.19-5.50); Red Cell Distribution Width 14.6 % (11.5-14.5); Segmented Neutrophils % 77.7 %; White Blood Count 8.4 K/mcL (4.3-11.1)
[2022-01-30 02:04] LABS: BUN/Creatinine Ratio 20 (6-26); Blood Urea Nitrogen 17 mg/dL (8-23); Calcium 9.2 mg/dL (8.6-10.3); Carbon Dioxide 31 mEq/L (23-29); Chloride 101 mEq/L (98-107); Glucose 204 mg/dL (70-105); Osmolality,Calculated 291 (280-300); Potassium 3.7 mEq/L (3.5-5.1); Sodium 137 mEq/L (136-145); eGFR For African Americans > 60 (> 60); eGFR For Non-African Americans > 60 (> 60)
[2022-01-30] MEDS: amLODIPine 5 MG TABLET PO SCH (08:44)
[2022-01-30] MEDS: Hyoscyamine SL 0.125 MG TAB.SUBL PO SCH ×2 (08:44→20:09)
[2022-01-30] MEDS: Pregabalin 75 MG CAPSULE PO SCH (08:44)
[2022-01-30] MEDS: carvediloL 25 MG TABLET PO SCH ×2 (08:45→17:18)
[2022-01-30] MEDS: Insulin LISPRO 300 UNITS/3 ML VIAL SUBQ SCH ×5 (08:45→20:19)
[2022-01-30] MEDS: *HR* Digoxin 0.125 MG TABLET PO SCH (08:45)
[2022-01-30] MEDS: Nystatin POWDER 30 GM BOTTLE TP SCH ×3 (08:46→20:10)
[2022-01-30] MEDS: Psyllium 1 PACKET POWD.PACK PO SCH ×3 (08:46→20:09)
[2022-01-30] MEDS: Insulin DETEMIR 100 UNIT/ML X5UNITS SUBQ SCH ×2 (08:46→08:51)
[2022-01-30] MEDS: risperiDONE 0.25 MG TABLET PO SCH (16:09)
[2022-01-30] MEDS: lisinopriL 20 MG TABLET PO SCH (17:18)
[2022-01-30] MEDS: *HR* Rivaroxaban 10 MG TABLET PO SCH (17:18)
[2022-01-31] MEDS: Insulin LISPRO 300 UNITS/3 ML VIAL SUBQ SCH ×3 (08:09→17:41)
[2022-01-31] MEDS: Hyoscyamine SL 0.125 MG TAB.SUBL PO SCH (09:41)
[2022-01-31] MEDS: *HR* Digoxin 0.125 MG TABLET PO SCH (09:42)
[2022-01-31] MEDS: carvediloL 25 MG TABLET PO SCH ×2 (09:42→17:00)
[2022-01-31] MEDS: Nystatin POWDER 30 GM BOTTLE TP SCH ×2 (09:43→17:00)
[2022-01-31] MEDS: Psyllium 1 PACKET POWD.PACK PO SCH ×2 (09:43→17:00)
[2022-01-31] MEDS: amLODIPine 5 MG TABLET PO SCH (09:43)
[2022-01-31] MEDS: Insulin DETEMIR 100 UNIT/ML X5UNITS SUBQ SCH (09:43)
[2022-01-31] MEDS: Pregabalin 75 MG CAPSULE PO SCH (09:43)
[2022-01-31] MEDS: hydrALAZINE 25 MG TABLET PO SCH ×2 (09:43→17:00)
[2022-01-31 09:44] VITALS: O2SAT 100
[2022-01-31 11:16] VITALS: BP 127/65; PULSE 77; TEMP 97.9
[2022-01-31] MEDS ORDERED: Moderna Covid-19 Vaccine 100MCG/0.5mL IM ONE (11:41)
[2022-01-31] MEDS: *HR* Rivaroxaban 10 MG TABLET PO SCH (17:00)
[2022-01-31] MEDS: lisinopriL 20 MG TABLET PO SCH (17:00)
[2022-01-31] MEDS: risperiDONE 0.25 MG TABLET PO SCH (17:00)
== END 2022-01-31 18:24 | DRG 308 ==
LOC: 2NENU → SUATTDRO 12:58
PROVIDERS: ADMIT Pharmacist; ATTEND General Practice

== ENCOUNTER 2022-06-04 11:10 | Inpatient (IN) ==
[~2022-06-04 11:10] MED LIST: *HR* Etomidate 20 MG/10 ML AMPUL IVP ONE; *HR* Rocuronium Bromide 50 MG/5 ML VIAL IVP ONE
[2022-06-04] MEDS ORDERED: 0.9 % Sodium Chloride 1,000 ML ONE ×3 (11:23→15:56)
[2022-06-04] MEDS ORDERED: 0.9 % Sodium Chloride 1,000 ML IVC ONE (11:30)
[2022-06-04 11:48] LABS: Hematocrit 44.1 % (37.5-50.1); Hemoglobin 13.1 g/dL (12.9-16.9); Mean Corpuscular HGB Conc 29.7 g/dL (31.6-35.5); Mean Corpuscular Hemoglobin 28.1 pg (28.0-33.3); Mean Corpuscular Volume 94.6 fL (83.0-100.0); Mean Platelet Volume 12.6 fL (9.4-12.4); Monocytes # 0.3 K/mcL (0.0-1.3); Platelet Count 236 K/mcL (140-400); Red Blood Count 4.66 M/mcL (4.19-5.50); Red Cell Distribution Width 15.1 % (11.5-14.5); White Blood Count 14.6 K/mcL (4.3-11.1)
[2022-06-04] MEDS ORDERED: Iopamidol - 370 500 ML MLS IVP ONE (11:50)
[2022-06-04] MEDS: Norepinephrine 4 MG/254 ML IV.SOLN IVC SCH ×4 (11:51→22:11)
[2022-06-04 11:56] LABS: INR 2.6; Prothrombin Time 28.4 Seconds (9.4-12.1)
[2022-06-04 11:59] LABS: Activated Partial Thrombo Time 39.2 Seconds (26.0-36.0)
[2022-06-04 12:07] LABS: Bacteria,Urine Few per hpf (None-Few); Bilirubin,Urine Negative (Negative); Blood,Urine Large (Negative); Clarity,Urine Turbid (Clear); Color,Urine Yellow (Yellow); Glucose,Urine (UA) Normal (Normal); Ketones,Urine Negative (Negative); Leukocyte Esterase,Urine Small (Negative); Mucus,Urine Few per lpf (None-Few); Nitrite,Urine Negative (Negative); Protein,Urine 50 mg/dL (Neg-Trace); RBC,Urine TNTC per hpf (0-3); Specific Gravity,Urine 1.018 (1.010-1.025); Squamous Epithelial Cell,Urine Few per hpf (None-Few); Urobilinogen,Urine Normal (Normal); WBC,Urine 15-30 per hpf (0-3)
[2022-06-04 12:12] LABS: Amphetamine Screen,Urine Negative ng/mL (Cutoff=1000); Barbiturate Screen,Urine Negative ng/mL (Cutoff=200); Benzodiazepines Screen,Urine Negative ng/mL (Cutoff=200); Cannabinoid Screen,Urine Negative ng/mL (Cutoff = 50); Cocaine Screen,Urine Negative ng/mL (Cutoff= 300); Opiate Screen,Urine Negative ng/mL (Cutoff=300); Phencyclidine Screen,Urine Negative ng/mL (Cutoff=25)
[2022-06-04 12:39] LABS: Lymphocytes # 0.3 K/mcL (0.6-4.6); Platelet Estimate Normal (Normal)
[2022-06-04 13:04] LABS: ABG Base Excess -6 mEq/L (-2 to 3); ABG HCO3 20 mEq/L (21-27); ABG Oxygen Saturation 82 % (95-98); ABG PCO2 42 mmHg (35-45); ABG PO2 52 mmHg (85-104); ABG TCO2 22 mEq/L (20-26); Blood Gas VT 480 cc
[2022-06-04] MEDS: Cefepime HCl 2,000 MG in 0.9 % Sodium Chloride Mini Bag 100 ML IVPB SCH (13:19)
[2022-06-04 13:47] LABS: Adenovirus Not Detected (Not Detect); Bordetella Pertussis Not Detected (Not Detect); Chlamydophila pneumoniae Not Detected (Not Detect); Coronavirus 229E Not Detected (Not Detect); Coronavirus HKU1 Not Detected (Not Detect); Coronavirus NL63 Not Detected (Not Detect); Coronavirus OC43 Not Detected (Not Detect); Human Metapneumovirus Not Detected (Not Detect); Human Rhinovirus/Enterovirus Not Detected (Not Detect); Influenza A Subtype 2009 H1 Not Detected (Not Detect); Influenza B Not Detected (Not Detect); Mycoplasma pneumoniae Not Detected (Not Detect); Parainfluenza Virus 1 Not Detected (Not Detect); Parainfluenza Virus 2 Not Detected (Not Detect); Parainfluenza Virus 3 Not Detected (Not Detect); Parainfluenza Virus 4 Not Detected (Not Detect); Respiratory Syncytial Virus Not Detected (Not Detect); SARS-CoV-2 Not Detected (Not Detect)
[2022-06-04] MEDS: Albumin Human 5% 12.5 GM/250 ML IV.SOLN IVC SCH ×2 (15:11→15:30)
[2022-06-04] MEDS ORDERED: Naloxone 0.4 MG/ML INJ IVP PRN (15:12)
[2022-06-04] MEDS ORDERED: Artificial Tears SOLN 15 ML BOTTLE BOTH EYES PRN (15:16)
[2022-06-04] MEDS: FentaNYL (PF) 1,000 MCG/100 ML IV.SOLN IVC SCH (15:30)
[2022-06-04] MEDS: Artificial Tears SOLN 15 ML BOTTLE BOTH EYES SCH ×3 (15:49→23:02)
[2022-06-04] MEDS ORDERED: D5% in Water 1,000 ML IVC PRN (17:54)
[2022-06-04] MEDS ORDERED: Dextrose Gel 15 GM/37.5 ML TUBE PO PRN ×2 (17:54)
[2022-06-04 17:55] LABS: Alanine Aminotransferase 38 Units/L (7-52); Alkaline Phosphatase 75 Units/L (34-104); Aspartate Amino Transferase 59 Units/L (13-39); BUN/Creatinine Ratio 34 (6-26); Bilirubin,Direct 0.3 mg/dL (0.0-0.2); Bilirubin,Indirect 0.5 mg/dL (0.0-1.0); Bilirubin,Total 0.8 mg/dL (0.3-1.0); Blood Urea Nitrogen 103 mg/dL (8-23); Calcium 9.1 mg/dL (8.6-10.3); Carbon Dioxide 19 mEq/L (23-29); Chloride 125 mEq/L (98-107); Creatine Kinase 565 Units/L (30-223); Ethanol < 10 mg/dL (Less than 10); Glucose 171 mg/dL (70-105); Osmolality,Calculated 360 (280-300); Potassium 4.4 mEq/L (3.5-5.1); Sodium 157 mEq/L (136-145); Troponin I 0.14 ng/mL (< 0.04)
[2022-06-04 18:03] LABS: Thyroid Stimulating Hormone 2.732 mcIU/mL (0.340-5.600)
[2022-06-04] MEDS: Insulin LISPRO 300 UNITS/3 ML VIAL SUBQ SCH ×2 (18:28→23:13)
[2022-06-04] MEDS: Chlorhexidine Rinse 15 ML MOUTHWASH MM SCH (20:17)
[2022-06-04 22:37] LABS: Hematocrit 35.4 % (37.5-50.1)
[2022-06-04 22:42] LABS: Hemoglobin 10.5 g/dL (12.9-16.9)
[2022-06-04] MEDS ORDERED: Pantoprazole 40 MG VIAL IVP ONE (22:49)
[2022-06-04 23:01] LABS: Calcium 8.8 mg/dL (8.6-10.3); Digoxin 2.3 ng/mL (0.8-2.0); Potassium 4.4 mEq/L (3.5-5.1); Troponin I 0.15 ng/mL (< 0.04)
[2022-06-05] MEDS: Norepinephrine 4 MG/254 ML IV.SOLN IVC SCH ×10 (01:39→23:58)
[2022-06-05] MEDS: Cefepime HCl 2,000 MG in 0.9 % Sodium Chloride Mini Bag 100 ML IVPB SCH ×2 (01:39→13:21)
[2022-06-05] MEDS: Artificial Tears SOLN 15 ML BOTTLE BOTH EYES SCH ×6 (03:21→23:19)
[2022-06-05 03:27] LABS: Basophils % 0.1 %; Hematocrit 34.5 % (37.5-50.1); Hemoglobin 10.4 g/dL (12.9-16.9); Immature Granulocytes % 0.3 % (0-4); Lymphocytes # 0.6 K/mcL (0.6-4.6); Lymphocytes % 3.7 %; Mean Corpuscular HGB Conc 30.1 g/dL (31.6-35.5); Mean Corpuscular Hemoglobin 28.7 pg (28.0-33.3); Monocytes # 0.3 K/mcL (0.0-1.3); Monocytes % 1.9 %; Neutrophils # 14.5 K/mcL (1.6-8.9); Platelet Count 232 K/mcL (140-400); Red Blood Count 3.63 M/mcL (4.19-5.50); Red Cell Distribution Width 15.1 % (11.5-14.5); White Blood Count 15.4 K/mcL (4.3-11.1)
[2022-06-05 03:33] LABS: INR 1.9; Prothrombin Time 21.4 Seconds (9.4-12.1)
[2022-06-05 03:45] LABS: Albumin 2.8 g/dL (3.5-5.7); Bilirubin,Direct 0.2 mg/dL (0.0-0.2); Bilirubin,Indirect 0.4 mg/dL (0.0-1.0); Bilirubin,Total 0.6 mg/dL (0.3-1.0); Calcium 8.6 mg/dL (8.6-10.3); Globulin 2.8 g/dL (2.4-3.5); Magnesium 1.9 mg/dL (1.6-2.6); Potassium 4.2 mEq/L (3.5-5.1); Total Protein 5.6 g/dL (6.4-8.9)
[2022-06-05 04:39] LABS: ABG Base Excess -9 mEq/L (-2 to 3); ABG HCO3 17 mEq/L (21-27); ABG Oxygen Saturation 94 % (95-98); ABG PCO2 35 mmHg (35-45); ABG PH 7.28 pH Units (7.32-7.45); ABG PO2 77 mmHg (85-104); ABG TCO2 18 mEq/L (20-26); Blood Gas Modality ASSIST CONTROL; Blood Gas VT 470 cc
[2022-06-05] MEDS: Pantoprazole 40 MG VIAL IVP SCH ×2 (06:08→17:29)
[2022-06-05] MEDS: Insulin LISPRO 300 UNITS/3 ML VIAL SUBQ SCH ×3 (06:09→17:51)
[2022-06-05] MEDS: Chlorhexidine Rinse 15 ML MOUTHWASH MM SCH ×2 (08:04→19:31)
[2022-06-05] MEDS: FentaNYL (PF) 1,000 MCG/100 ML IV.SOLN IVC SCH (09:01)
[2022-06-05] MEDS: Ringers Solution, Lactated 1,000 ML IVC SCH ×3 (09:45→23:22)
[2022-06-05 13:57] LABS: Calcium 8.3 mg/dL (8.6-10.3); Potassium 4.3 mEq/L (3.5-5.1)
[2022-06-05 15:03] LABS: Protein/Creatinine Ratio,Urine 1.64 mg/mg (0.00-0.20)
[2022-06-05] MEDS ORDERED: Pantoprazole 40 MG VIAL IVP ONE (18:00)
[2022-06-05 18:37] LABS: Calcium 8.1 mg/dL (8.6-10.3); Potassium 4.3 mEq/L (3.5-5.1)
[2022-06-05 23:59] LABS: Calcium 8.2 mg/dL (8.6-10.3); Potassium 4.1 mEq/L (3.5-5.1)
[2022-06-06] MEDS: Cefepime HCl 2,000 MG in 0.9 % Sodium Chloride Mini Bag 100 ML IVPB SCH (00:16)
[2022-06-06] MEDS: Insulin LISPRO 300 UNITS/3 ML VIAL SUBQ SCH ×4 (00:16→17:18)
[2022-06-06] MEDS: Artificial Tears SOLN 15 ML BOTTLE BOTH EYES SCH ×5 (03:17→20:23)
[2022-06-06 04:01] LABS: Basophils % 0.1 %; Hematocrit 33.8 % (37.5-50.1); Hemoglobin 10.2 g/dL (12.9-16.9); Immature Granulocytes % 1.1 % (0-4); Lymphocytes # 0.5 K/mcL (0.6-4.6); Lymphocytes % 2.6 %; Mean Corpuscular HGB Conc 30.2 g/dL (31.6-35.5); Mean Corpuscular Hemoglobin 28.4 pg (28.0-33.3); Mean Corpuscular Volume 94.2 fL (83.0-100.0); Mean Platelet Volume 11.8 fL (9.4-12.4); Monocytes # 0.2 K/mcL (0.0-1.3); Monocytes % 1.3 %; Neutrophils # 16.6 K/mcL (1.6-8.9); Platelet Count 188 K/mcL (140-400); Red Blood Count 3.59 M/mcL (4.19-5.50); Red Cell Distribution Width 15.5 % (11.5-14.5); Segmented Neutrophils % 94.9 %; White Blood Count 17.5 K/mcL (4.3-11.1)
[2022-06-06 04:21] LABS: Calcium 8.3 mg/dL (8.6-10.3); Magnesium 1.8 mg/dL (1.6-2.6); Potassium 4.2 mEq/L (3.5-5.1)
[2022-06-06 04:53] LABS: ABG Base Excess -12 mEq/L (-2 to 3); ABG HCO3 14 mEq/L (21-27); ABG Oxygen Saturation 96 % (95-98); ABG PCO2 29 mmHg (35-45); ABG PH 7.29 pH Units (7.32-7.45); ABG PO2 86 mmHg (85-104); ABG TCO2 15 mEq/L (20-26); Blood Gas VT 470 cc
[2022-06-06 04:58] LABS: Burr Cells 1+ (Not Present); Platelet Estimate Normal (Normal); Poikilocytosis 1+ (Not Present)
[2022-06-06] MEDS: Norepinephrine 4 MG/254 ML IV.SOLN IVC SCH ×3 (05:04→14:10)
[2022-06-06] MEDS: FentaNYL (PF) 1,000 MCG/100 ML IV.SOLN IVC SCH (05:11)
[2022-06-06] MEDS: Pantoprazole 40 MG VIAL IVP SCH ×2 (06:12→17:11)
[2022-06-06] MEDS: Ringers Solution, Lactated 1,000 ML IVC SCH ×2 (06:23→23:22)
[2022-06-06] MEDS ORDERED: Sodium Bicarbonate 75 MEQ in 0.45 % Sodium Chloride 1,000 ML IVC SCH (06:46)
[2022-06-06] MEDS: Chlorhexidine Rinse 15 ML MOUTHWASH MM SCH ×2 (07:54→20:23)
[2022-06-06] MEDS: Ringers Solution, Lactated 500 ML IVC SCH ×4 (09:14→19:53)
[2022-06-06] MEDS ORDERED: Cefepime HCl 2,000 MG in 0.9 % Sodium Chloride Mini Bag 100 ML IVPB SCH (11:00)
[2022-06-06] MEDS: *HR* Heparin 5,000 UNIT/ML VIAL SQ SCH (17:11)
[2022-06-06] MEDS: risperiDONE 0.25 MG TABLET PO SCH (20:23)
[2022-06-06 20:51] LABS: Calcium 7.8 mg/dL (8.6-10.3); Potassium 3.6 mEq/L (3.5-5.1)
[2022-06-06] MEDS ORDERED: Ringers Solution, Lactated 1,000 ML IVC SCH (21:17)
[2022-06-07] MEDS: Insulin LISPRO 300 UNITS/3 ML VIAL SUBQ SCH ×4 (00:29→18:05)
[2022-06-07] MEDS: Artificial Tears SOLN 15 ML BOTTLE BOTH EYES SCH ×6 (00:30→20:30)
[2022-06-07] MEDS ORDERED: Cefepime HCl 2,000 MG in 0.9 % Sodium Chloride Mini Bag 100 ML IVPB SCH (01:00)
[2022-06-07 04:06] LABS: Hematocrit 29.8 % (37.5-50.1); Hemoglobin 9.3 g/dL (12.9-16.9); Mean Corpuscular HGB Conc 31.2 g/dL (31.6-35.5); Mean Corpuscular Hemoglobin 28.5 pg (28.0-33.3); Mean Corpuscular Volume 91.4 fL (83.0-100.0); Mean Platelet Volume 11.4 fL (9.4-12.4); Platelet Count 128 K/mcL (140-400); Red Blood Count 3.26 M/mcL (4.19-5.50); Red Cell Distribution Width 15.4 % (11.5-14.5)
[2022-06-07 04:24] LABS: Calcium 7.7 mg/dL (8.6-10.3); Magnesium 1.6 mg/dL (1.6-2.6); Potassium 3.4 mEq/L (3.5-5.1)
[2022-06-07] MEDS: FentaNYL (PF) 1,000 MCG/100 ML IV.SOLN IVC SCH (04:46)
[2022-06-07 05:03] LABS: ABG Base Excess -8 mEq/L (-2 to 3); ABG HCO3 16 mEq/L (21-27); ABG Oxygen Saturation 90 % (95-98); ABG PCO2 27 mmHg (35-45); ABG PH 7.37 pH Units (7.32-7.45); ABG PO2 59 mmHg (85-104); ABG TCO2 17 mEq/L (20-26); Blood Gas Modality AF; Blood Gas VT 470 cc
[2022-06-07] MEDS: Pantoprazole 40 MG VIAL IVP SCH ×2 (05:22→16:55)
[2022-06-07] MEDS: *HR* Heparin 5,000 UNIT/ML VIAL SQ SCH ×2 (05:23→16:55)
[2022-06-07 05:37] LABS: Lymphocytes # 0.5 K/mcL (0.6-4.6); Monocytes # 0.7 K/mcL (0.0-1.3); Neutrophils # 10.8 K/mcL (1.6-8.9); Platelet Estimate Slight Decrease (Normal)
[2022-06-07] MEDS: Ringers Solution, Lactated 1,000 ML IVC SCH ×3 (06:15→15:25)
[2022-06-07] MEDS: Chlorhexidine Rinse 15 ML MOUTHWASH MM SCH ×2 (07:42→20:29)
[2022-06-07] MEDS: risperiDONE 1 MG TABLET PO SCH (07:42)
[2022-06-07] MEDS: Multivit/Ca/Min/Fe/FA 1 TAB TABLET PO SCH (07:42)
[2022-06-07] MEDS: Norepinephrine 4 MG/254 ML IV.SOLN IVC SCH ×2 (07:49→20:30)
[2022-06-07] MEDS ORDERED: Potassium Chloride Elixir 20 MEQ/15 ML UDC GTUBE ONE (09:05)
[2022-06-07 10:47] LABS: ABG Base Excess -8 mEq/L (-2 to 3); ABG HCO3 16 mEq/L (21-27); ABG Oxygen Saturation 81 % (95-98); ABG PCO2 27 mmHg (35-45); ABG PH 7.37 pH Units (7.32-7.45); ABG PO2 46 mmHg (85-104); ABG TCO2 16 mEq/L (20-26)
[2022-06-07] MEDS ORDERED: Ipratropium/Albuterol Neb 3 ML ONE (10:53)
[2022-06-07] MEDS: Ipratropium/Albuterol Neb 3 ML IH SCH ×4 (10:57→23:55)
[2022-06-07] MEDS: Cefepime HCl 2,000 MG in 0.9 % Sodium Chloride Mini Bag 100 ML IVPB SCH (15:24)
[2022-06-07 15:50] LABS: Calcium 7.9 mg/dL (8.6-10.3); Potassium 3.6 mEq/L (3.5-5.1)
[2022-06-07] MEDS ORDERED: Ringers Solution, Lactated 1,000 ML IVC SCH (16:57)
[2022-06-07] MEDS: risperiDONE 0.25 MG TABLET PO SCH (20:13)
[2022-06-08] MEDS: Artificial Tears SOLN 15 ML BOTTLE BOTH EYES SCH ×6 (00:52→19:36)
[2022-06-08] MEDS: Insulin LISPRO 300 UNITS/3 ML VIAL SUBQ SCH ×5 (00:53→19:35)
[2022-06-08] MEDS: FentaNYL (PF) 1,000 MCG/100 ML IV.SOLN IVC SCH ×2 (00:59→19:34)
[2022-06-08] MEDS: Cefepime HCl 2,000 MG in 0.9 % Sodium Chloride Mini Bag 100 ML IVPB SCH ×2 (03:15→15:07)
[2022-06-08] MEDS: Ipratropium/Albuterol Neb 3 ML IH SCH ×6 (03:35→23:13)
[2022-06-08 04:43] LABS: ABG Base Excess -9 mEq/L (-2 to 3); ABG HCO3 16 mEq/L (21-27); ABG Oxygen Saturation 96 % (95-98); ABG PCO2 29 mmHg (35-45); ABG PH 7.34 pH Units (7.32-7.45); ABG PO2 84 mmHg (85-104); ABG TCO2 17 mEq/L (20-26); Blood Gas Modality AF; Blood Gas VT 470 cc
[2022-06-08 05:43] LABS: Hematocrit 32.4 % (37.5-50.1); Hemoglobin 9.9 g/dL (12.9-16.9); Mean Corpuscular HGB Conc 30.6 g/dL (31.6-35.5); Mean Corpuscular Hemoglobin 28.3 pg (28.0-33.3); Mean Corpuscular Volume 92.6 fL (83.0-100.0); Mean Platelet Volume 12.1 fL (9.4-12.4); Platelet Count 145 K/mcL (140-400); Red Cell Distribution Width 15.7 % (11.5-14.5); White Blood Count 12.5 K/mcL (4.3-11.1)
[2022-06-08 05:51] LABS: INR 2.2; Prothrombin Time 24.2 Seconds (9.4-12.1)
[2022-06-08 05:54] LABS: Activated Partial Thrombo Time 38.9 Seconds (26.0-36.0)
[2022-06-08 05:55] LABS: VBG Ionized Calcium 1.22 mmol/L (1.15-1.35)
[2022-06-08 06:03] LABS: Albumin 2.1 g/dL (3.5-5.7); Albumin/Globulin Ratio 0.9 (1.1-2.2); Bilirubin,Direct 0.1 mg/dL (0.0-0.2); Bilirubin,Indirect 0.4 mg/dL (0.0-1.0); Bilirubin,Total 0.5 mg/dL (0.3-1.0); Globulin 2.4 g/dL (2.4-3.5); Magnesium 2.1 mg/dL (1.6-2.6); Potassium 3.3 mEq/L (3.5-5.1); Total Protein 4.5 g/dL (6.4-8.9)
[2022-06-08 06:22] LABS: Neutrophils # 12.5 K/mcL (1.6-8.9); Platelet Estimate Normal (Normal)
[2022-06-08] MEDS: *HR* Heparin 5,000 UNIT/ML VIAL SQ SCH ×2 (06:47→17:07)
[2022-06-08] MEDS: Pantoprazole 40 MG VIAL IVP SCH ×2 (06:47→17:06)
[2022-06-08] MEDS ORDERED: Potassium Chloride Elixir 20 MEQ/15 ML UDC GTUBE ONE (06:59)
[2022-06-08] MEDS: Multivit/Ca/Min/Fe/FA 1 TAB TABLET PO SCH (07:37)
[2022-06-08] MEDS: Chlorhexidine Rinse 15 ML MOUTHWASH MM SCH ×2 (07:37→19:34)
[2022-06-08] MEDS: risperiDONE 1 MG TABLET PO SCH (07:37)
[2022-06-08] MEDS ORDERED: Furosemide 40 MG/4 ML VIAL IVP ONE (09:11)
[2022-06-08] MEDS ORDERED: *HR* Heparin 5,000 UNIT/ML VIAL IVP PRN ×2 (09:13)
[2022-06-08] MEDS ORDERED: Albumin 25% 25gram/100mL 25 GM/100 ML IV.SOLN IVPB ONE (09:15)
[2022-06-08] MEDS ORDERED: Heparin 25,000UNIT/250ML 1/2NS 25,000 UNIT/250 ML IV.SOLN IVC SCH (09:15)
[2022-06-08] MEDS: Norepinephrine 4 MG/254 ML IV.SOLN IVC SCH (10:16)
[2022-06-08 15:59] LABS: Calcium 8.3 mg/dL (8.6-10.3); Magnesium 1.9 mg/dL (1.6-2.6); Phosphorous 2.4 mg/dL (2.7-4.5); Potassium 3.2 mEq/L (3.5-5.1)
[2022-06-08] MEDS: risperiDONE 0.25 MG TABLET PO SCH (19:35)
[2022-06-08] MEDS: Potassium Chloride Elixir 20 MEQ/15 ML UDC GTUBE SCH (20:15)
[2022-06-09] MEDS: Artificial Tears SOLN 15 ML BOTTLE BOTH EYES SCH ×7 (03:27→23:32)
[2022-06-09] MEDS: Insulin LISPRO 300 UNITS/3 ML VIAL SUBQ SCH ×6 (03:27→23:29)
[2022-06-09] MEDS: Ipratropium/Albuterol Neb 3 ML IH SCH ×5 (03:27→19:51)
[2022-06-09] MEDS: Cefepime HCl 2,000 MG in 0.9 % Sodium Chloride Mini Bag 100 ML IVPB SCH (04:00)
[2022-06-09 04:07] LABS: ABG Base Excess -8 mEq/L (-2 to 3); ABG HCO3 16 mEq/L (21-27); ABG Oxygen Saturation 93 % (95-98); ABG PCO2 27 mmHg (35-45); ABG PH 7.39 pH Units (7.32-7.45); ABG PO2 65 mmHg (85-104); ABG TCO2 17 mEq/L (20-26); Blood Gas Modality AF; Blood Gas VT 470 cc
[2022-06-09] MEDS: Pantoprazole 40 MG VIAL IVP SCH ×2 (06:08→18:29)
[2022-06-09] MEDS: *HR* Heparin 5,000 UNIT/ML VIAL SQ SCH ×2 (06:10→18:29)
[2022-06-09 06:40] LABS: Basophils % 0.2 %; Eosinophils % 0.1 %; Hematocrit 27.7 % (37.5-50.1); Hemoglobin 8.9 g/dL (12.9-16.9); Immature Granulocytes % 1.9 % (0-4); Lymphocytes # 0.2 K/mcL (0.6-4.6); Lymphocytes % 2.3 %; Mean Corpuscular HGB Conc 32.1 g/dL (31.6-35.5); Mean Corpuscular Hemoglobin 29.2 pg (28.0-33.3); Mean Corpuscular Volume 90.8 fL (83.0-100.0); Mean Platelet Volume 11.8 fL (9.4-12.4); Monocytes # 0.1 K/mcL (0.0-1.3); Monocytes % 1.2 %; Neutrophils # 8.5 K/mcL (1.6-8.9); Platelet Count 111 K/mcL (140-400); Red Blood Count 3.05 M/mcL (4.19-5.50); Red Cell Distribution Width 15.7 % (11.5-14.5); Segmented Neutrophils % 94.3 %
[2022-06-09 06:41] LABS: VBG Ionized Calcium 1.21 mmol/L (1.15-1.35)
[2022-06-09 06:47] LABS: INR 1.8; Prothrombin Time 19.8 Seconds (9.4-12.1)
[2022-06-09 06:49] LABS: Activated Partial Thrombo Time 36.9 Seconds (26.0-36.0)
[2022-06-09 07:07] LABS: Albumin 2.3 g/dL (3.5-5.7); Bilirubin,Direct 0.1 mg/dL (0.0-0.2); Bilirubin,Indirect 0.5 mg/dL (0.0-1.0); Bilirubin,Total 0.6 mg/dL (0.3-1.0); Calcium 8.3 mg/dL (8.6-10.3); Globulin 2.3 g/dL (2.4-3.5); Magnesium 1.9 mg/dL (1.6-2.6); Phosphorous 2.9 mg/dL (2.7-4.5); Potassium 3.2 mEq/L (3.5-5.1); Total Protein 4.6 g/dL (6.4-8.9)
[2022-06-09] MEDS: Potassium Chloride Elixir 20 MEQ/15 ML UDC GTUBE SCH ×2 (07:08→21:02)
[2022-06-09] MEDS: Multivit/Ca/Min/Fe/FA 1 TAB TABLET PO SCH (07:08)
[2022-06-09] MEDS: risperiDONE 1 MG TABLET PO SCH (07:08)
[2022-06-09] MEDS: Chlorhexidine Rinse 15 ML MOUTHWASH MM SCH ×2 (07:08→20:52)
[2022-06-09] MEDS: Insulin DETEMIR 100 UNIT/ML X5UNITS SUBQ SCH ×2 (10:16→21:09)
[2022-06-09] MEDS ORDERED: Vasopressin 40 UNIT in D5% in Water 100 ML IVC SCH (12:00)
[2022-06-09] MEDS ORDERED: Cefepime HCl 2,000 MG in D5% in Water 100 ML IVPB SCH ×2 (12:00→16:00)
[2022-06-09 12:02] LABS: Calcium 8.2 mg/dL (8.6-10.3)
[2022-06-09] MEDS ORDERED: Potassium Chloride Elixir 20 MEQ/15 ML UDC GTUBE ONE (12:15)
[2022-06-09] MEDS: Cefepime HCl 2,000 MG in Water for inj. (sterile) 10 ML IVP SCH (15:29)
[2022-06-09 23:38] LABS: Calcium 8.3 mg/dL (8.6-10.3); Potassium 4.3 mEq/L (3.5-5.1)
[2022-06-10] MEDS: Ipratropium/Albuterol Neb 3 ML IH SCH ×7 (00:06→23:03)
[2022-06-10 04:17] LABS: ABG Base Excess -2 mEq/L (-2 to 3); ABG HCO3 23 mEq/L (21-27); ABG Oxygen Saturation 95 % (95-98); ABG PCO2 38 mmHg (35-45); ABG PO2 78 mmHg (85-104); ABG TCO2 24 mEq/L (20-26); Blood Gas Modality AF; Blood Gas VT 470 cc
[2022-06-10] MEDS: Cefepime HCl 2,000 MG in Water for inj. (sterile) 10 ML IVP SCH ×2 (04:55→15:40)
[2022-06-10] MEDS: Artificial Tears SOLN 15 ML BOTTLE BOTH EYES SCH ×5 (04:58→20:46)
[2022-06-10] MEDS: Insulin LISPRO 300 UNITS/3 ML VIAL SUBQ SCH ×5 (04:59→20:59)
[2022-06-10] MEDS: Pantoprazole 40 MG VIAL IVP SCH ×2 (05:02→18:11)
[2022-06-10] MEDS: *HR* Heparin 5,000 UNIT/ML VIAL SQ SCH ×2 (05:05→18:10)
[2022-06-10 05:12] LABS: Hematocrit 27.8 % (37.5-50.1); Hemoglobin 8.8 g/dL (12.9-16.9); Mean Corpuscular HGB Conc 31.7 g/dL (31.6-35.5); Mean Corpuscular Hemoglobin 28.3 pg (28.0-33.3); Mean Corpuscular Volume 89.4 fL (83.0-100.0); Mean Platelet Volume 11.9 fL (9.4-12.4); Platelet Count 126 K/mcL (140-400); Red Blood Count 3.11 M/mcL (4.19-5.50); Red Cell Distribution Width 15.9 % (11.5-14.5); White Blood Count 11.7 K/mcL (4.3-11.1)
[2022-06-10 05:14] LABS: VBG Ionized Calcium 1.16 mmol/L (1.15-1.35)
[2022-06-10 05:19] LABS: INR 1.3; Prothrombin Time 14.7 Seconds (9.4-12.1)
[2022-06-10 05:22] LABS: Activated Partial Thrombo Time 31.8 Seconds (26.0-36.0)
[2022-06-10 05:33] LABS: Alanine Aminotransferase 35 Units/L (7-52); Albumin 2.3 g/dL (3.5-5.7); Alkaline Phosphatase 223 Units/L (34-104); Aspartate Amino Transferase 34 Units/L (13-39); BUN/Creatinine Ratio 62 (6-26); Bilirubin,Direct 0.1 mg/dL (0.0-0.2); Bilirubin,Indirect 0.4 mg/dL (0.0-1.0); Bilirubin,Total 0.5 mg/dL (0.3-1.0); Blood Urea Nitrogen 47 mg/dL (8-23); Calcium 7.8 mg/dL (8.6-10.3); Carbon Dioxide 22 mEq/L (23-29); Chloride 127 mEq/L (98-107); Globulin 2.3 g/dL (2.4-3.5); Glucose 294 mg/dL (70-105); Magnesium 1.5 mg/dL (1.6-2.6); Osmolality,Calculated 341 (280-300); Phosphorous 1.4 mg/dL (2.7-4.5); Potassium 3.5 mEq/L (3.5-5.1); Sodium 154 mEq/L (136-145); Total Protein 4.6 g/dL (6.4-8.9)
[2022-06-10 05:41] LABS: Eosinophils # 0.2 K/mcL (0.0-0.6); Lymphocytes # 0.5 K/mcL (0.6-4.6); Monocytes # 0.2 K/mcL (0.0-1.3); Neutrophils # 10.8 K/mcL (1.6-8.9); Poikilocytosis 1+ (Not Present)
[2022-06-10 05:42] LABS: Platelet Estimate Slight Decrease (Normal)
[2022-06-10] MEDS: Potassium Chloride Elixir 20 MEQ/15 ML UDC GTUBE SCH (08:31)
[2022-06-10] MEDS: Multivit/Ca/Min/Fe/FA 1 TAB TABLET PO SCH (08:32)
[2022-06-10] MEDS: Chlorhexidine Rinse 15 ML MOUTHWASH MM SCH ×2 (08:32→20:45)
[2022-06-10] MEDS: Insulin DETEMIR 100 UNIT/ML X5UNITS SUBQ SCH ×2 (08:59→21:01)
[2022-06-10] MEDS: *HR* Digoxin 0.125 MG TABLET PO SCH (09:08)
[2022-06-10] MEDS: Furosemide 40 MG/4 ML VIAL IVP SCH ×2 (09:09→20:46)
[2022-06-10] MEDS: Dexmedetomidine HCl 400 MCG/100 ML MLS IVC SCH (09:10)
[2022-06-10] MEDS: hydrALAZINE 25 MG TABLET PO SCH (15:40)
[2022-06-10 18:39] LABS: BUN/Creatinine Ratio 71 (6-26); Blood Urea Nitrogen 50 mg/dL (8-23); Calcium 8.3 mg/dL (8.6-10.3); Carbon Dioxide 25 mEq/L (23-29); Chloride 123 mEq/L (98-107); Glucose 246 mg/dL (70-105); Osmolality,Calculated 338 (280-300); Potassium 3.2 mEq/L (3.5-5.1); Sodium 153 mEq/L (136-145)
[2022-06-10] MEDS ORDERED: Potassium Chloride Elixir 20 MEQ/15 ML UDC GTUBE SCH (21:00)
[2022-06-11] MEDS: hydrALAZINE 25 MG TABLET PO SCH ×3 (00:30→15:48)
[2022-06-11] MEDS: Insulin LISPRO 300 UNITS/3 ML VIAL SUBQ SCH ×6 (00:47→20:26)
[2022-06-11] MEDS: Artificial Tears SOLN 15 ML BOTTLE BOTH EYES SCH ×6 (00:50→20:25)
[2022-06-11] MEDS: Dexmedetomidine HCl 400 MCG/100 ML MLS IVC SCH (03:13)
[2022-06-11] MEDS: Ipratropium/Albuterol Neb 3 ML IH SCH ×6 (03:57→23:16)
[2022-06-11 04:20] LABS: ABG Base Excess 5 mEq/L (-2 to 3); ABG HCO3 28 mEq/L (21-27); ABG Oxygen Saturation 93 % (95-98); ABG PCO2 38 mmHg (35-45); ABG PH 7.49 pH Units (7.32-7.45); ABG PO2 62 mmHg (85-104); ABG TCO2 29 mEq/L (20-26); Blood Gas VT 470 cc
[2022-06-11] MEDS: Cefepime HCl 2,000 MG in Water for inj. (sterile) 10 ML IVP SCH ×2 (04:56→15:48)
[2022-06-11 04:57] LABS: Basophils % 0.2 %; Eosinophils % 0.3 %; Hematocrit 26.9 % (37.5-50.1); Hemoglobin 8.7 g/dL (12.9-16.9); Immature Granulocytes % 4.2 % (0-4); Lymphocytes # 0.4 K/mcL (0.6-4.6); Lymphocytes % 3.1 %; Mean Corpuscular HGB Conc 32.3 g/dL (31.6-35.5); Mean Corpuscular Hemoglobin 28.3 pg (28.0-33.3); Mean Corpuscular Volume 87.6 fL (83.0-100.0); Mean Platelet Volume 12.6 fL (9.4-12.4); Monocytes # 0.2 K/mcL (0.0-1.3); Monocytes % 1.3 %; Neutrophils # 11.6 K/mcL (1.6-8.9); Nucleated Red Blood Cells 0.2 /100 WBC (0); Platelet Count 132 K/mcL (140-400); Red Blood Count 3.07 M/mcL (4.19-5.50); Red Cell Distribution Width 15.9 % (11.5-14.5); Segmented Neutrophils % 90.9 %; White Blood Count 12.8 K/mcL (4.3-11.1)
[2022-06-11] MEDS: Pantoprazole 40 MG VIAL IVP SCH ×2 (04:59→17:14)
[2022-06-11 05:03] LABS: INR 1.2; Prothrombin Time 13.6 Seconds (9.4-12.1)
[2022-06-11] MEDS: *HR* Heparin 5,000 UNIT/ML VIAL SQ SCH ×2 (05:04→17:14)
[2022-06-11 05:05] LABS: Activated Partial Thrombo Time 30.7 Seconds (26.0-36.0)
[2022-06-11 05:13] LABS: Platelet Estimate Normal (Normal); Poikilocytosis 1+ (Not Present); Schistocytes 1+ (Not Present); Target Cells 1+ (Not Present)
[2022-06-11 05:14] LABS: Alanine Aminotransferase 54 Units/L (7-52); Albumin 2.4 g/dL (3.5-5.7); Albumin/Globulin Ratio 0.9 (1.1-2.2); Alkaline Phosphatase 272 Units/L (34-104); Aspartate Amino Transferase 60 Units/L (13-39); BUN/Creatinine Ratio 72 (6-26); Bilirubin,Direct 0.1 mg/dL (0.0-0.2); Bilirubin,Indirect 0.3 mg/dL (0.0-1.0); Bilirubin,Total 0.4 mg/dL (0.3-1.0); Blood Urea Nitrogen 50 mg/dL (8-23); Calcium 8.5 mg/dL (8.6-10.3); Carbon Dioxide 27 mEq/L (23-29); Chloride 120 mEq/L (98-107); Globulin 2.6 g/dL (2.4-3.5); Glucose 262 mg/dL (70-105); Magnesium 1.4 mg/dL (1.6-2.6); Osmolality,Calculated 338 (280-300); Phosphorous 1.4 mg/dL (2.7-4.5); Potassium 3.1 mEq/L (3.5-5.1); Sodium 153 mEq/L (136-145)
[2022-06-11 05:23] LABS: VBG Ionized Calcium 1.22 mmol/L (1.15-1.35)
[2022-06-11] MEDS ORDERED: Potassium Chloride Elixir 20 MEQ/15 ML UDC PO ONE (06:21)
[2022-06-11] MEDS: *HR* Digoxin 0.125 MG TABLET PO SCH (07:36)
[2022-06-11] MEDS: Multivit/Ca/Min/Fe/FA 1 TAB TABLET PO SCH (07:36)
[2022-06-11] MEDS: Chlorhexidine Rinse 15 ML MOUTHWASH MM SCH ×2 (07:36→20:28)
[2022-06-11] MEDS: Furosemide 40 MG/4 ML VIAL IVP SCH (07:36)
[2022-06-11] MEDS: Insulin DETEMIR 100 UNIT/ML X5UNITS SUBQ SCH ×2 (07:38→20:47)
[2022-06-11] MEDS ORDERED: Gadolinium Contrast Agent (WT Based) IV PRN (09:52)
[2022-06-11] MEDS ORDERED: *HR* FentaNYL (PF) 100 MCG/2 ML VIAL EP ONE (14:32)
[2022-06-12] MEDS: Artificial Tears SOLN 15 ML BOTTLE BOTH EYES SCH ×6 (00:30→20:28)
[2022-06-12] MEDS: Insulin LISPRO 300 UNITS/3 ML VIAL SUBQ SCH ×6 (00:30→20:29)
[2022-06-12] MEDS: hydrALAZINE 25 MG TABLET PO SCH ×3 (01:40→16:45)
[2022-06-12] MEDS: Cefepime HCl 2,000 MG in Water for inj. (sterile) 10 ML IVP SCH (03:48)
[2022-06-12] MEDS: Dexmedetomidine HCl 400 MCG/100 ML MLS IVC SCH (03:59)
[2022-06-12] MEDS: Pantoprazole 40 MG VIAL IVP SCH ×2 (04:03→16:45)
[2022-06-12] MEDS: Ipratropium/Albuterol Neb 3 ML IH SCH ×6 (04:04→23:49)
[2022-06-12] MEDS: *HR* Heparin 5,000 UNIT/ML VIAL SQ SCH ×2 (04:05→16:45)
[2022-06-12 04:37] LABS: ABG Base Excess 8 mEq/L (-2 to 3); ABG HCO3 31 mEq/L (21-27); ABG Oxygen Saturation 93 % (95-98); ABG PCO2 38 mmHg (35-45); ABG PH 7.52 pH Units (7.32-7.45); ABG PO2 59 mmHg (85-104); ABG TCO2 32 mEq/L (20-26); Blood Gas VT 470 cc
[2022-06-12 05:04] LABS: Basophils % 0.2 %; Eosinophils % 0.2 %; Hematocrit 24.7 % (37.5-50.1); Hemoglobin 7.8 g/dL (12.9-16.9); Immature Granulocytes % 2.9 % (0-4); Lymphocytes # 0.5 K/mcL (0.6-4.6); Lymphocytes % 3.9 %; Mean Corpuscular HGB Conc 31.6 g/dL (31.6-35.5); Mean Corpuscular Hemoglobin 28.4 pg (28.0-33.3); Mean Corpuscular Volume 89.8 fL (83.0-100.0); Mean Platelet Volume 12.9 fL (9.4-12.4); Monocytes # 0.2 K/mcL (0.0-1.3); Monocytes % 1.6 %; Neutrophils # 11.1 K/mcL (1.6-8.9); Platelet Count 121 K/mcL (140-400); Red Blood Count 2.75 M/mcL (4.19-5.50); Red Cell Distribution Width 15.9 % (11.5-14.5); Segmented Neutrophils % 91.2 %; White Blood Count 12.2 K/mcL (4.3-11.1)
[2022-06-12 05:07] LABS: VBG Ionized Calcium 1.15 mmol/L (1.15-1.35)
[2022-06-12 05:14] LABS: INR 1.3; Prothrombin Time 14.3 Seconds (9.4-12.1)
[2022-06-12 05:17] LABS: Activated Partial Thrombo Time 30.8 Seconds (26.0-36.0)
[2022-06-12 05:24] LABS: Alanine Aminotransferase 63 Units/L (7-52); Albumin 2.1 g/dL (3.5-5.7); Albumin/Globulin Ratio 0.8 (1.1-2.2); Alkaline Phosphatase 282 Units/L (34-104); Aspartate Amino Transferase 69 Units/L (13-39); BUN/Creatinine Ratio 82 (6-26); Bilirubin,Direct 0.1 mg/dL (0.0-0.2); Bilirubin,Indirect 0.3 mg/dL (0.0-1.0); Bilirubin,Total 0.4 mg/dL (0.3-1.0); Blood Urea Nitrogen 47 mg/dL (8-23); Calcium 8.1 mg/dL (8.6-10.3); Carbon Dioxide 31 mEq/L (23-29); Chloride 115 mEq/L (98-107); Digoxin 0.8 ng/mL (0.8-2.0); Globulin 2.5 g/dL (2.4-3.5); Glucose 201 mg/dL (70-105); Magnesium 1.5 mg/dL (1.6-2.6); Osmolality,Calculated 328 (280-300); Phosphorous 1.7 mg/dL (2.7-4.5); Potassium 3.1 mEq/L (3.5-5.1); Sodium 150 mEq/L (136-145); Total Protein 4.6 g/dL (6.4-8.9)
[2022-06-12] MEDS: Chlorhexidine Rinse 15 ML MOUTHWASH MM SCH ×2 (08:02→20:30)
[2022-06-12] MEDS: Multivit/Ca/Min/Fe/FA 1 TAB TABLET PO SCH (08:02)
[2022-06-12] MEDS: Insulin DETEMIR 100 UNIT/ML X5UNITS SUBQ SCH ×2 (08:03→20:37)
[2022-06-12] MEDS: *HR* Digoxin 0.125 MG TABLET PO SCH (08:03)
[2022-06-12] MEDS ORDERED: DESMOPRESSIN ACETATE IVPB ONE (11:16)
[2022-06-12] MEDS ORDERED: SODIUM CHLORIDE 0.9% IVPB ONE (11:16)
[2022-06-12 12:09] LABS: Total Volume 24 Hour,Urine 2.39 Liters (0.80-1.80)
[2022-06-12 12:21] LABS: Sodium, Urine 54.4 mEq/L
[2022-06-12 18:33] LABS: Basophils % 0.2 %; Eosinophils % 0.2 %; Hematocrit 27.2 % (37.5-50.1); Hemoglobin 8.6 g/dL (12.9-16.9); Immature Granulocytes % 3.3 % (0-4); Lymphocytes # 0.6 K/mcL (0.6-4.6); Lymphocytes % 3.4 %; Mean Corpuscular HGB Conc 31.6 g/dL (31.6-35.5); Mean Corpuscular Hemoglobin 28.5 pg (28.0-33.3); Mean Corpuscular Volume 90.1 fL (83.0-100.0); Mean Platelet Volume 12.8 fL (9.4-12.4); Monocytes # 0.3 K/mcL (0.0-1.3); Monocytes % 1.8 %; Neutrophils # 15.1 K/mcL (1.6-8.9); Platelet Count 148 K/mcL (140-400); Red Blood Count 3.02 M/mcL (4.19-5.50); Red Cell Distribution Width 15.7 % (11.5-14.5); Segmented Neutrophils % 91.1 %; White Blood Count 16.6 K/mcL (4.3-11.1)
[2022-06-12 18:52] LABS: BUN/Creatinine Ratio 90 (6-26); Blood Urea Nitrogen 46 mg/dL (8-23); Calcium 8.3 mg/dL (8.6-10.3); Carbon Dioxide 32 mEq/L (23-29); Chloride 112 mEq/L (98-107); Glucose 157 mg/dL (70-105); Osmolality,Calculated 323 (280-300); Potassium 3.2 mEq/L (3.5-5.1); Sodium 149 mEq/L (136-145)
[2022-06-13] MEDS: hydrALAZINE 25 MG TABLET PO SCH ×3 (00:40→15:21)
[2022-06-13] MEDS: Artificial Tears SOLN 15 ML BOTTLE BOTH EYES SCH ×7 (00:40→23:37)
[2022-06-13] MEDS: Insulin LISPRO 300 UNITS/3 ML VIAL SUBQ SCH ×7 (00:56→23:37)
[2022-06-13] MEDS: Ipratropium/Albuterol Neb 3 ML IH SCH ×5 (03:29→20:18)
[2022-06-13 03:53] LABS: BUN/Creatinine Ratio 88 (6-26); Blood Urea Nitrogen 44 mg/dL (8-23); Calcium 7.8 mg/dL (8.6-10.3); Carbon Dioxide 30 mEq/L (23-29); Chloride 111 mEq/L (98-107); Glucose 273 mg/dL (70-105); Osmolality,Calculated 323 (280-300); Potassium 3.6 mEq/L (3.5-5.1); Sodium 146 mEq/L (136-145)
[2022-06-13 04:36] LABS: ABG Base Excess 4 mEq/L (-2 to 3); ABG HCO3 28 mEq/L (21-27); ABG Oxygen Saturation 95 % (95-98); ABG PCO2 39 mmHg (35-45); ABG PH 7.47 pH Units (7.32-7.45); ABG PO2 72 mmHg (85-104); ABG TCO2 30 mEq/L (20-26); Blood Gas Modality AF; Blood Gas VT 470 cc
[2022-06-13] MEDS: Pantoprazole 40 MG VIAL IVP SCH ×2 (05:29→17:54)
[2022-06-13] MEDS: *HR* Heparin 5,000 UNIT/ML VIAL SQ SCH ×2 (05:32→17:54)
[2022-06-13 05:41] LABS: VBG Ionized Calcium 1.18 mmol/L (1.15-1.35)
[2022-06-13 05:41] LABS: Basophils % 0.1 %; Eosinophils # 0.1 K/mcL (0.0-0.6); Eosinophils % 0.4 %; Hematocrit 24.5 % (37.5-50.1); Hemoglobin 7.7 g/dL (12.9-16.9); Immature Granulocytes % 2.7 % (0-4); Lymphocytes # 0.5 K/mcL (0.6-4.6); Lymphocytes % 3.7 %; Mean Corpuscular HGB Conc 31.4 g/dL (31.6-35.5); Mean Corpuscular Hemoglobin 28.6 pg (28.0-33.3); Mean Corpuscular Volume 91.1 fL (83.0-100.0); Mean Platelet Volume 12.7 fL (9.4-12.4); Monocytes # 0.3 K/mcL (0.0-1.3); Monocytes % 1.9 %; Neutrophils # 12.7 K/mcL (1.6-8.9); Platelet Count 128 K/mcL (140-400); Red Blood Count 2.69 M/mcL (4.19-5.50); Red Cell Distribution Width 15.7 % (11.5-14.5); Segmented Neutrophils % 91.2 %; White Blood Count 13.9 K/mcL (4.3-11.1)
[2022-06-13 05:48] LABS: INR 1.2
[2022-06-13 05:51] LABS: Activated Partial Thrombo Time 30.1 Seconds (26.0-36.0)
[2022-06-13 06:01] LABS: Alanine Aminotransferase 109 Units/L (7-52); Albumin 2.3 g/dL (3.5-5.7); Albumin/Globulin Ratio 0.9 (1.1-2.2); Alkaline Phosphatase 374 Units/L (34-104); Aspartate Amino Transferase 119 Units/L (13-39); BUN/Creatinine Ratio 98 (6-26); Bilirubin,Indirect 0.3 mg/dL (0.0-1.0); Bilirubin,Total 0.3 mg/dL (0.3-1.0); Blood Urea Nitrogen 43 mg/dL (8-23); Carbon Dioxide 31 mEq/L (23-29); Chloride 111 mEq/L (98-107); Globulin 2.6 g/dL (2.4-3.5); Glucose 157 mg/dL (70-105); Magnesium 1.4 mg/dL (1.6-2.6); Osmolality,Calculated 316 (280-300); Phosphorous 2.6 mg/dL (2.7-4.5); Potassium 3.1 mEq/L (3.5-5.1); Sodium 146 mEq/L (136-145); Total Protein 4.9 g/dL (6.4-8.9)
[2022-06-13] MEDS ORDERED: Potassium Chloride Elixir 20 MEQ/15 ML UDC GTUBE ONE (08:06)
[2022-06-13] MEDS: *HR* Digoxin 0.125 MG TABLET PO SCH (08:48)
[2022-06-13] MEDS: Chlorhexidine Rinse 15 ML MOUTHWASH MM SCH ×2 (08:48→21:01)
[2022-06-13] MEDS: Multivit/Ca/Min/Fe/FA 1 TAB TABLET PO SCH (08:48)
[2022-06-13] MEDS: Insulin DETEMIR 100 UNIT/ML X5UNITS SUBQ SCH ×2 (08:50→21:01)
[2022-06-13] MEDS: Potassium Phosphate 44 MEQ in 0.9 % Sodium Chloride 250 ML IVPB PRN (13:10)
[2022-06-13] MEDS: *HR* Metoprolol 5 MG/5 ML VIAL IVP PRN (18:38)
[2022-06-13] MEDS: Dexmedetomidine HCl 400 MCG/100 ML MLS IVC SCH (21:01)
[2022-06-13 22:14] LABS: VBG Ionized Calcium 1.12 mmol/L (1.15-1.35)
[2022-06-13 22:33] LABS: BUN/Creatinine Ratio 98 (6-26); Blood Urea Nitrogen 39 mg/dL (8-23); Calcium 8.1 mg/dL (8.6-10.3); Carbon Dioxide 30 mEq/L (23-29); Chloride 108 mEq/L (98-107); Glucose 213 mg/dL (70-105); Magnesium 1.6 mg/dL (1.6-2.6); Osmolality,Calculated 312 (280-300); Phosphorous 3.9 mg/dL (2.7-4.5); Potassium 3.9 mEq/L (3.5-5.1); Sodium 143 mEq/L (136-145)
[2022-06-14] MEDS: Ipratropium/Albuterol Neb 3 ML IH SCH ×6 (00:17→20:14)
[2022-06-14] MEDS: hydrALAZINE 25 MG TABLET PO SCH ×4 (01:30→23:26)
[2022-06-14] MEDS: Artificial Tears SOLN 15 ML BOTTLE BOTH EYES SCH ×6 (01:30→23:26)
[2022-06-14 05:18] LABS: ABG Base Excess 5 mEq/L (-2 to 3); ABG HCO3 29 mEq/L (21-27); ABG Oxygen Saturation 99 % (95-98); ABG PCO2 42 mmHg (35-45); ABG PH 7.45 pH Units (7.32-7.45); ABG PO2 113 mmHg (85-104); ABG TCO2 31 mEq/L (20-26); Blood Gas Modality ASSIST CONTROL; Blood Gas VT 470 cc
[2022-06-14] MEDS: Insulin LISPRO 300 UNITS/3 ML VIAL SUBQ SCH ×6 (05:45→23:26)
[2022-06-14] MEDS: Pantoprazole 40 MG VIAL IVP SCH ×2 (05:46→17:04)
[2022-06-14] MEDS: *HR* Heparin 5,000 UNIT/ML VIAL SQ SCH ×2 (05:46→17:04)
[2022-06-14] MEDS: *HR* Metoprolol 5 MG/5 ML VIAL IVP PRN (05:47)
[2022-06-14 07:59] LABS: Basophils % 0.1 %; Eosinophils % 0.3 %; Hematocrit 24.8 % (37.5-50.1); Hemoglobin 7.7 g/dL (12.9-16.9); Immature Granulocytes % 1.7 % (0-4); Lymphocytes # 0.5 K/mcL (0.6-4.6); Lymphocytes % 3.2 %; Mean Corpuscular Hemoglobin 28.2 pg (28.0-33.3); Mean Corpuscular Volume 90.8 fL (83.0-100.0); Mean Platelet Volume 13.2 fL (9.4-12.4); Monocytes # 0.3 K/mcL (0.0-1.3); Monocytes % 2.1 %; Neutrophils # 13.8 K/mcL (1.6-8.9); Platelet Count 157 K/mcL (140-400); Red Blood Count 2.73 M/mcL (4.19-5.50); Red Cell Distribution Width 15.8 % (11.5-14.5); Segmented Neutrophils % 92.6 %; White Blood Count 14.9 K/mcL (4.3-11.1)
[2022-06-14] MEDS: lisinopriL 20 MG TABLET PO SCH (08:39)
[2022-06-14] MEDS: Insulin DETEMIR 100 UNIT/ML X5UNITS SUBQ SCH ×2 (08:39→19:58)
[2022-06-14] MEDS: Chlorhexidine Rinse 15 ML MOUTHWASH MM SCH ×2 (08:40→19:54)
[2022-06-14] MEDS: *HR* Digoxin 0.125 MG TABLET PO SCH (08:41)
[2022-06-14] MEDS: Dexmedetomidine HCl 400 MCG/100 ML MLS IVC SCH (08:41)
[2022-06-14] MEDS: Multivit/Ca/Min/Fe/FA 1 TAB TABLET PO SCH (08:41)
[2022-06-14] MEDS: carvediloL 25 MG TABLET PO SCH ×2 (08:43→15:47)
[2022-06-14 14:28] LABS: Magnesium 1.9 mg/dL (1.6-2.6); Potassium 3.9 mEq/L (3.5-5.1)
[2022-06-14 22:11] LABS: BUN/Creatinine Ratio 118 (6-26); Blood Urea Nitrogen 39 mg/dL (8-23); Calcium 8.3 mg/dL (8.6-10.3); Carbon Dioxide 30 mEq/L (23-29); Chloride 107 mEq/L (98-107); Glucose 165 mg/dL (70-105); Magnesium 2.1 mg/dL (1.6-2.6); Osmolality,Calculated 301 (280-300); Potassium 3.9 mEq/L (3.5-5.1); Sodium 139 mEq/L (136-145)
[2022-06-15] MEDS: Ipratropium/Albuterol Neb 3 ML IH SCH ×7 (00:22→23:42)
[2022-06-15 03:59] LABS: Basophils % 0.1 %; Eosinophils # 0.1 K/mcL (0.0-0.6); Eosinophils % 0.7 %; Hematocrit 23.6 % (37.5-50.1); Hemoglobin 7.3 g/dL (12.9-16.9); Immature Granulocytes % 1.5 % (0-4); Lymphocytes # 0.5 K/mcL (0.6-4.6); Lymphocytes % 3.9 %; Mean Corpuscular HGB Conc 30.9 g/dL (31.6-35.5); Mean Corpuscular Hemoglobin 28.4 pg (28.0-33.3); Mean Corpuscular Volume 91.8 fL (83.0-100.0); Mean Platelet Volume 12.7 fL (9.4-12.4); Monocytes # 0.4 K/mcL (0.0-1.3); Monocytes % 3.3 %; Neutrophils # 11.1 K/mcL (1.6-8.9); Nucleated Red Blood Cells 0.2 /100 WBC (0); Platelet Count 140 K/mcL (140-400); Red Blood Count 2.57 M/mcL (4.19-5.50); Red Cell Distribution Width 15.6 % (11.5-14.5); Segmented Neutrophils % 90.5 %; White Blood Count 12.3 K/mcL (4.3-11.1)
[2022-06-15 04:18] LABS: BUN/Creatinine Ratio 106 (6-26); Blood Urea Nitrogen 37 mg/dL (8-23); Calcium 8.4 mg/dL (8.6-10.3); Carbon Dioxide 30 mEq/L (23-29); Chloride 105 mEq/L (98-107); Glucose 137 mg/dL (70-105); Osmolality,Calculated 299 (280-300); Phosphorous 2.7 mg/dL (2.7-4.5); Potassium 3.8 mEq/L (3.5-5.1); Sodium 139 mEq/L (136-145)
[2022-06-15] MEDS: Insulin LISPRO 300 UNITS/3 ML VIAL SUBQ SCH ×5 (04:37→20:27)
[2022-06-15] MEDS: Artificial Tears SOLN 15 ML BOTTLE BOTH EYES SCH ×5 (04:37→20:27)
[2022-06-15] MEDS: *HR* Heparin 5,000 UNIT/ML VIAL SQ SCH ×2 (05:52→17:13)
[2022-06-15] MEDS: Pantoprazole 40 MG VIAL IVP SCH ×2 (05:53→17:13)
[2022-06-15] MEDS: hydrALAZINE 25 MG TABLET PO SCH ×2 (07:42→15:16)
[2022-06-15] MEDS: Multivit/Ca/Min/Fe/FA 1 TAB TABLET PO SCH (07:42)
[2022-06-15] MEDS: Chlorhexidine Rinse 15 ML MOUTHWASH MM SCH ×2 (07:42→20:26)
[2022-06-15] MEDS: carvediloL 25 MG TABLET PO SCH ×2 (07:42→17:14)
[2022-06-15] MEDS: *HR* Digoxin 0.125 MG TABLET PO SCH (07:42)
[2022-06-15] MEDS: Dexmedetomidine HCl 400 MCG/100 ML MLS IVC SCH (07:44)
[2022-06-15] MEDS: Insulin DETEMIR 100 UNIT/ML X5UNITS SUBQ SCH ×2 (07:48→20:27)
[2022-06-15] MEDS: lisinopriL 20 MG TABLET PO SCH (17:14)
[2022-06-16] MEDS: Artificial Tears SOLN 15 ML BOTTLE BOTH EYES SCH ×7 (00:20→23:43)
[2022-06-16] MEDS: hydrALAZINE 25 MG TABLET PO SCH ×4 (00:20→23:42)
[2022-06-16] MEDS: Insulin LISPRO 300 UNITS/3 ML VIAL SUBQ SCH ×6 (00:20→20:30)
[2022-06-16 03:28] LABS: VBG Ionized Calcium 1.16 mmol/L (1.15-1.35)
[2022-06-16 03:33] LABS: Basophils % 0.1 %; Eosinophils % 0.3 %; Hematocrit 22.9 % (37.5-50.1); Hemoglobin 7.3 g/dL (12.9-16.9); Immature Granulocytes % 2.1 % (0-4); Lymphocytes # 0.5 K/mcL (0.6-4.6); Lymphocytes % 4.5 %; Mean Corpuscular HGB Conc 31.9 g/dL (31.6-35.5); Mean Corpuscular Hemoglobin 28.6 pg (28.0-33.3); Mean Corpuscular Volume 89.8 fL (83.0-100.0); Mean Platelet Volume 12.8 fL (9.4-12.4); Monocytes # 0.5 K/mcL (0.0-1.3); Monocytes % 4.1 %; Neutrophils # 10.4 K/mcL (1.6-8.9); Nucleated Red Blood Cells 0.2 /100 WBC (0); Platelet Count 173 K/mcL (140-400); Red Blood Count 2.55 M/mcL (4.19-5.50); Red Cell Distribution Width 15.8 % (11.5-14.5); Segmented Neutrophils % 88.9 %; White Blood Count 11.7 K/mcL (4.3-11.1)
[2022-06-16 03:48] LABS: BUN/Creatinine Ratio 93 (6-26); Blood Urea Nitrogen 37 mg/dL (8-23); Calcium 8.3 mg/dL (8.6-10.3); Carbon Dioxide 28 mEq/L (23-29); Chloride 103 mEq/L (98-107); Glucose 185 mg/dL (70-105); Magnesium 1.7 mg/dL (1.6-2.6); Osmolality,Calculated 295 (280-300); Phosphorous 2.5 mg/dL (2.7-4.5); Potassium 4.2 mEq/L (3.5-5.1); Sodium 136 mEq/L (136-145)
[2022-06-16] MEDS: Potassium Phosphate 44 MEQ in 0.9 % Sodium Chloride 250 ML IVPB PRN (05:26)
[2022-06-16] MEDS: Ipratropium/Albuterol Neb 3 ML IH SCH ×6 (05:27→23:25)
[2022-06-16] MEDS: *HR* Heparin 5,000 UNIT/ML VIAL SQ SCH ×2 (05:28→17:21)
[2022-06-16] MEDS: Pantoprazole 40 MG VIAL IVP SCH ×2 (05:28→17:21)
[2022-06-16 05:35] LABS: ABG Base Excess 3 mEq/L (-2 to 3); ABG HCO3 27 mEq/L (21-27); ABG Oxygen Saturation 92 % (95-98); ABG PCO2 35 mmHg (35-45); ABG PH 7.49 pH Units (7.32-7.45); ABG PO2 59 mmHg (85-104); ABG TCO2 28 mEq/L (20-26); Blood Gas Modality ASSIST CONTROL; Blood Gas VT 470 cc
[2022-06-16] MEDS: Multivit/Ca/Min/Fe/FA 1 TAB TABLET PO SCH (07:37)
[2022-06-16] MEDS: *HR* Digoxin 0.125 MG TABLET PO SCH (07:37)
[2022-06-16] MEDS: carvediloL 25 MG TABLET PO SCH ×2 (07:37→17:21)
[2022-06-16] MEDS: Chlorhexidine Rinse 15 ML MOUTHWASH MM SCH ×2 (07:38→20:29)
[2022-06-16] MEDS: Insulin DETEMIR 100 UNIT/ML X5UNITS SUBQ SCH ×2 (07:39→20:30)
[2022-06-16] MEDS: levoFLOXacin 750 MG/150 ML 750 MG/150 ML BAG IVPB SCH (14:50)
[2022-06-16] MEDS: lisinopriL 20 MG TABLET PO SCH (17:12)
[2022-06-16 17:57] LABS: BUN/Creatinine Ratio 109 (6-26); Blood Urea Nitrogen 35 mg/dL (8-23); Calcium 7.6 mg/dL (8.6-10.3); Carbon Dioxide 30 mEq/L (23-29); Chloride 103 mEq/L (98-107); Glucose 86 mg/dL (70-105); Magnesium 1.7 mg/dL (1.6-2.6); Osmolality,Calculated 291 (280-300); Potassium 4.1 mEq/L (3.5-5.1); Sodium 137 mEq/L (136-145)
[2022-06-16] MEDS: Nystatin POWDER 30 GM BOTTLE TP SCH (21:15)
[2022-06-17] MEDS: Insulin LISPRO 300 UNITS/3 ML VIAL SUBQ SCH ×6 (00:27→19:49)
[2022-06-17] MEDS: Ipratropium/Albuterol Neb 3 ML IH SCH ×6 (03:17→23:37)
[2022-06-17 03:49] LABS: ABG Base Excess 3 mEq/L (-2 to 3); ABG HCO3 27 mEq/L (21-27); ABG Oxygen Saturation 96 % (95-98); ABG PCO2 37 mmHg (35-45); ABG PH 7.48 pH Units (7.32-7.45); ABG PO2 76 mmHg (85-104); ABG TCO2 28 mEq/L (20-26); Blood Gas VT 470 cc
[2022-06-17] MEDS: Artificial Tears SOLN 15 ML BOTTLE BOTH EYES SCH ×5 (04:00→19:33)
[2022-06-17 04:43] LABS: Basophils % 0.1 %; Eosinophils % 0.3 %; Hematocrit 22.2 % (37.5-50.1); Hemoglobin 6.9 g/dL (12.9-16.9); Immature Granulocytes % 2.2 % (0-4); Lymphocytes # 0.6 K/mcL (0.6-4.6); Lymphocytes % 4.6 %; Mean Corpuscular HGB Conc 31.1 g/dL (31.6-35.5); Mean Corpuscular Hemoglobin 28.4 pg (28.0-33.3); Mean Corpuscular Volume 91.4 fL (83.0-100.0); Mean Platelet Volume 12.4 fL (9.4-12.4); Monocytes # 0.4 K/mcL (0.0-1.3); Monocytes % 3.6 %; Platelet Count 180 K/mcL (140-400); Red Blood Count 2.43 M/mcL (4.19-5.50); Segmented Neutrophils % 89.2 %; White Blood Count 12.3 K/mcL (4.3-11.1)
[2022-06-17 04:57] LABS: BUN/Creatinine Ratio 87 (6-26); Blood Urea Nitrogen 33 mg/dL (8-23); Calcium 8.1 mg/dL (8.6-10.3); Carbon Dioxide 29 mEq/L (23-29); Chloride 103 mEq/L (98-107); Glucose 200 mg/dL (70-105); Magnesium 1.9 mg/dL (1.6-2.6); Osmolality,Calculated 295 (280-300); Potassium 4.2 mEq/L (3.5-5.1); Sodium 136 mEq/L (136-145)
[2022-06-17] MEDS: *HR* Heparin 5,000 UNIT/ML VIAL SQ SCH ×2 (05:47→17:15)
[2022-06-17] MEDS: Pantoprazole 40 MG VIAL IVP SCH ×2 (05:47→17:15)
[2022-06-17] MEDS ORDERED: 0.9 % Sodium Chloride 250 ML ONE (08:33)
[2022-06-17] MEDS: Multivit/Ca/Min/Fe/FA 1 TAB TABLET PO SCH (08:48)
[2022-06-17] MEDS: levoFLOXacin 750 MG/150 ML 750 MG/150 ML BAG IVPB SCH (08:48)
[2022-06-17] MEDS: carvediloL 25 MG TABLET PO SCH ×2 (08:49→17:15)
[2022-06-17] MEDS: Chlorhexidine Rinse 15 ML MOUTHWASH MM SCH ×2 (08:49→19:33)
[2022-06-17] MEDS: hydrALAZINE 25 MG TABLET PO SCH ×2 (08:49→15:42)
[2022-06-17] MEDS: *HR* Digoxin 0.125 MG TABLET PO SCH (08:49)
[2022-06-17] MEDS: Insulin DETEMIR 100 UNIT/ML X5UNITS SUBQ SCH ×2 (08:49→19:49)
[2022-06-17] MEDS: Nystatin POWDER 30 GM BOTTLE TP SCH ×3 (08:50→19:33)
[2022-06-17 16:55] LABS: Hematocrit 24.5 % (37.5-50.1); Hemoglobin 7.8 g/dL (12.9-16.9)
[2022-06-17] MEDS: lisinopriL 20 MG TABLET PO SCH (17:15)
[2022-06-18] MEDS: Insulin LISPRO 300 UNITS/3 ML VIAL SUBQ SCH ×7 (00:55→23:55)
[2022-06-18] MEDS: Artificial Tears SOLN 15 ML BOTTLE BOTH EYES SCH ×7 (00:55→23:53)
[2022-06-18] MEDS: hydrALAZINE 25 MG TABLET PO SCH ×4 (00:57→23:56)
[2022-06-18] MEDS: Ipratropium/Albuterol Neb 3 ML IH SCH ×6 (04:12→23:35)
[2022-06-18 04:40] LABS: Basophils % 0.2 %; Eosinophils % 0.3 %; Hematocrit 24.4 % (37.5-50.1); Hemoglobin 7.7 g/dL (12.9-16.9); Immature Granulocytes % 2.4 % (0-4); Lymphocytes # 0.5 K/mcL (0.6-4.6); Lymphocytes % 4.6 %; Mean Corpuscular HGB Conc 31.6 g/dL (31.6-35.5); Mean Corpuscular Hemoglobin 28.4 pg (28.0-33.3); Mean Platelet Volume 12.3 fL (9.4-12.4); Monocytes # 0.4 K/mcL (0.0-1.3); Monocytes % 3.6 %; Neutrophils # 10.3 K/mcL (1.6-8.9); Platelet Count 231 K/mcL (140-400); Red Blood Count 2.71 M/mcL (4.19-5.50); Segmented Neutrophils % 88.9 %; White Blood Count 11.6 K/mcL (4.3-11.1)
[2022-06-18 04:55] LABS: ABG Base Excess 4 mEq/L (-2 to 3); ABG HCO3 27 mEq/L (21-27); ABG Oxygen Saturation 98 % (95-98); ABG PCO2 34 mmHg (35-45); ABG PH 7.51 pH Units (7.32-7.45); ABG PO2 89 mmHg (85-104); ABG TCO2 28 mEq/L (20-26); Blood Gas Modality ASSIST CONTROL; Blood Gas VT 470 cc
[2022-06-18 04:57] LABS: BUN/Creatinine Ratio 103 (6-26); Blood Urea Nitrogen 35 mg/dL (8-23); Calcium 8.2 mg/dL (8.6-10.3); Carbon Dioxide 29 mEq/L (23-29); Chloride 102 mEq/L (98-107); Glucose 220 mg/dL (70-105); Osmolality,Calculated 299 (280-300); Potassium 3.9 mEq/L (3.5-5.1); Sodium 137 mEq/L (136-145)
[2022-06-18] MEDS: *HR* Heparin 5,000 UNIT/ML VIAL SQ SCH ×2 (05:37→17:07)
[2022-06-18] MEDS: Pantoprazole 40 MG VIAL IVP SCH ×2 (05:37→17:07)
[2022-06-18] MEDS: levoFLOXacin 750 MG/150 ML 750 MG/150 ML BAG IVPB SCH (07:43)
[2022-06-18] MEDS: Chlorhexidine Rinse 15 ML MOUTHWASH MM SCH ×2 (07:44→19:40)
[2022-06-18] MEDS: Multivit/Ca/Min/Fe/FA 1 TAB TABLET PO SCH (07:45)
[2022-06-18] MEDS: carvediloL 25 MG TABLET PO SCH ×2 (07:45→17:08)
[2022-06-18] MEDS: *HR* Digoxin 0.125 MG TABLET PO SCH (07:45)
[2022-06-18] MEDS: Insulin DETEMIR 100 UNIT/ML X5UNITS SUBQ SCH ×2 (08:26→19:40)
[2022-06-18] MEDS: Nystatin POWDER 30 GM BOTTLE TP SCH ×3 (09:46→19:41)
[2022-06-18] MEDS: CeFAZolin 2,000 MG/120 ML BAG IVPB SCH ×2 (13:22→20:54)
[2022-06-18] MEDS: lisinopriL 20 MG TABLET PO SCH (17:08)
[2022-06-19] MEDS: Artificial Tears SOLN 15 ML BOTTLE BOTH EYES SCH ×5 (03:05→19:53)
[2022-06-19] MEDS: Insulin LISPRO 300 UNITS/3 ML VIAL SUBQ SCH ×5 (03:05→19:55)
[2022-06-19] MEDS: Ipratropium/Albuterol Neb 3 ML IH SCH ×6 (03:19→23:07)
[2022-06-19 03:29] LABS: ABG Base Excess 2 mEq/L (-2 to 3); ABG HCO3 27 mEq/L (21-27); ABG Oxygen Saturation 94 % (95-98); ABG PCO2 38 mmHg (35-45); ABG PH 7.45 pH Units (7.32-7.45); ABG PO2 67 mmHg (85-104); ABG TCO2 28 mEq/L (20-26); Blood Gas Modality AF; Blood Gas VT 470 cc
[2022-06-19 04:46] LABS: Basophils % 0.1 %; Eosinophils % 0.3 %; Hematocrit 25.9 % (37.5-50.1); Immature Granulocytes % 1.6 % (0-4); Lymphocytes # 0.4 K/mcL (0.6-4.6); Lymphocytes % 3.7 %; Mean Corpuscular HGB Conc 30.9 g/dL (31.6-35.5); Mean Corpuscular Hemoglobin 28.2 pg (28.0-33.3); Mean Corpuscular Volume 91.2 fL (83.0-100.0); Mean Platelet Volume 11.8 fL (9.4-12.4); Monocytes # 0.3 K/mcL (0.0-1.3); Monocytes % 3.2 %; Neutrophils # 9.2 K/mcL (1.6-8.9); Platelet Count 237 K/mcL (140-400); Red Blood Count 2.84 M/mcL (4.19-5.50); Red Cell Distribution Width 16.1 % (11.5-14.5); Segmented Neutrophils % 91.1 %; White Blood Count 10.1 K/mcL (4.3-11.1)
[2022-06-19 05:00] LABS: INR 1.1; Prothrombin Time 12.7 Seconds (9.4-12.1)
[2022-06-19 05:03] LABS: Activated Partial Thrombo Time 31.4 Seconds (26.0-36.0)
[2022-06-19 05:06] LABS: Alanine Aminotransferase 166 Units/L (7-52); Albumin 2.1 g/dL (3.5-5.7); Albumin/Globulin Ratio 0.7 (1.1-2.2); Alkaline Phosphatase 530 Units/L (34-104); Aspartate Amino Transferase 109 Units/L (13-39); BUN/Creatinine Ratio 100 (6-26); Bilirubin,Direct 0.1 mg/dL (0.0-0.2); Bilirubin,Indirect 0.3 mg/dL (0.0-1.0); Bilirubin,Total 0.4 mg/dL (0.3-1.0); Blood Urea Nitrogen 29 mg/dL (8-23); Calcium 8.4 mg/dL (8.6-10.3); Carbon Dioxide 30 mEq/L (23-29); Chloride 102 mEq/L (98-107); Glucose 169 mg/dL (70-105); Magnesium 1.5 mg/dL (1.6-2.6); Osmolality,Calculated 294 (280-300); Phosphorous 2.7 mg/dL (2.7-4.5); Potassium 4.1 mEq/L (3.5-5.1); Sodium 137 mEq/L (136-145); Total Protein 5.1 g/dL (6.4-8.9)
[2022-06-19 05:08] LABS: VBG Ionized Calcium 1.21 mmol/L (1.15-1.35)
[2022-06-19] MEDS: Pantoprazole 40 MG VIAL IVP SCH ×2 (06:11→17:42)
[2022-06-19] MEDS: CeFAZolin 2,000 MG/120 ML BAG IVPB SCH ×3 (06:11→19:55)
[2022-06-19] MEDS: Chlorhexidine Rinse 15 ML MOUTHWASH MM SCH ×2 (08:00→19:55)
[2022-06-19] MEDS: hydrALAZINE 25 MG TABLET PO SCH ×2 (08:00→16:10)
[2022-06-19] MEDS: Multivit/Ca/Min/Fe/FA 1 TAB TABLET PO SCH (08:01)
[2022-06-19] MEDS: *HR* Digoxin 0.125 MG TABLET PO SCH (08:01)
[2022-06-19] MEDS: carvediloL 25 MG TABLET PO SCH ×2 (08:01→16:10)
[2022-06-19] MEDS: Insulin DETEMIR 100 UNIT/ML X5UNITS SUBQ SCH ×2 (08:01→08:33)
[2022-06-19] MEDS: Nystatin POWDER 30 GM BOTTLE TP SCH ×3 (08:13→19:57)
[2022-06-19] MEDS: levoFLOXacin 750 MG/150 ML 750 MG/150 ML BAG IVPB SCH (08:30)
[2022-06-19] MEDS ORDERED: Furosemide 20 MG/2 ML VIAL IVP ONE (08:48)
[2022-06-19 10:03] LABS: ABG Base Excess 4 mEq/L (-2 to 3); ABG HCO3 28 mEq/L (21-27); ABG Oxygen Saturation 97 % (95-98); ABG PCO2 39 mmHg (35-45); ABG PH 7.46 pH Units (7.32-7.45); ABG PO2 85 mmHg (85-104); ABG TCO2 29 mEq/L (20-26); Blood Gas Modality CPAP/PS; Blood Gas Pressure Support 8 cm H2O
[2022-06-19] MEDS: *HR* Dextrose 50 % in Water (Syg) 50 ML SYRINGE IVP PRN (15:55)
[2022-06-19] MEDS: lisinopriL 20 MG TABLET PO SCH (17:44)
[2022-06-19] MEDS ORDERED: *HR* Etomidate 20 MG/10 ML AMPUL IVP ONE (17:52)
[2022-06-19] MEDS ORDERED: *HR* Midazolam HCl 2 MG/2 ML VIAL IVP ONE (17:52)
[2022-06-20] MEDS: Artificial Tears SOLN 15 ML BOTTLE BOTH EYES SCH ×7 (00:34→23:06)
[2022-06-20] MEDS: *HR* Dextrose 50 % in Water (Syg) 50 ML SYRINGE IVP PRN (00:35)
[2022-06-20] MEDS: Insulin LISPRO 300 UNITS/3 ML VIAL SUBQ SCH ×6 (00:35→20:17)
[2022-06-20] MEDS: hydrALAZINE 25 MG TABLET PO SCH ×4 (00:36→23:06)
[2022-06-20] MEDS: Ipratropium/Albuterol Neb 3 ML IH SCH ×6 (04:01→23:58)
[2022-06-20 04:40] LABS: ABG Base Excess 5 mEq/L (-2 to 3); ABG HCO3 30 mEq/L (21-27); ABG Oxygen Saturation 96 % (95-98); ABG PCO2 41 mmHg (35-45); ABG PH 7.47 pH Units (7.32-7.45); ABG PO2 78 mmHg (85-104); ABG TCO2 31 mEq/L (20-26); Blood Gas Modality AF; Blood Gas VT 470 cc
[2022-06-20 05:39] LABS: Basophils % 0.2 %; Eosinophils % 0.2 %; Hematocrit 27.1 % (37.5-50.1); Hemoglobin 8.4 g/dL (12.9-16.9); Immature Granulocytes % 0.8 % (0-4); Lymphocytes # 0.4 K/mcL (0.6-4.6); Lymphocytes % 2.8 %; Mean Corpuscular Hemoglobin 28.5 pg (28.0-33.3); Mean Corpuscular Volume 91.9 fL (83.0-100.0); Mean Platelet Volume 11.4 fL (9.4-12.4); Monocytes # 0.3 K/mcL (0.0-1.3); Monocytes % 2.3 %; Neutrophils # 12.5 K/mcL (1.6-8.9); Platelet Count 272 K/mcL (140-400); Red Blood Count 2.95 M/mcL (4.19-5.50); Red Cell Distribution Width 16.1 % (11.5-14.5); Segmented Neutrophils % 93.7 %; White Blood Count 13.3 K/mcL (4.3-11.1)
[2022-06-20] MEDS: CeFAZolin 2,000 MG/120 ML BAG IVPB SCH ×3 (05:40→20:23)
[2022-06-20] MEDS: Pantoprazole 40 MG VIAL IVP SCH ×2 (05:40→17:50)
[2022-06-20 05:58] LABS: Alanine Aminotransferase 95 Units/L (7-52); Albumin 2.2 g/dL (3.5-5.7); Albumin/Globulin Ratio 0.8 (1.1-2.2); Alkaline Phosphatase 462 Units/L (34-104); Aspartate Amino Transferase 74 Units/L (13-39); BUN/Creatinine Ratio 82 (6-26); Bilirubin,Direct 0.1 mg/dL (0.0-0.2); Bilirubin,Indirect 0.3 mg/dL (0.0-1.0); Bilirubin,Total 0.4 mg/dL (0.3-1.0); Blood Urea Nitrogen 23 mg/dL (8-23); Carbon Dioxide 30 mEq/L (23-29); Chloride 104 mEq/L (98-107); Globulin 2.9 g/dL (2.4-3.5); Glucose 89 mg/dL (70-105); Magnesium 1.5 mg/dL (1.6-2.6); Osmolality,Calculated 287 (280-300); Phosphorous 2.9 mg/dL (2.7-4.5); Potassium 3.7 mEq/L (3.5-5.1); Sodium 137 mEq/L (136-145); Total Protein 5.1 g/dL (6.4-8.9)
[2022-06-20] MEDS: Multivit/Ca/Min/Fe/FA 1 TAB TABLET PO SCH (07:33)
[2022-06-20] MEDS: carvediloL 25 MG TABLET PO SCH ×2 (07:33→15:54)
[2022-06-20] MEDS: *HR* Digoxin 0.125 MG TABLET PO SCH (07:33)
[2022-06-20] MEDS: Chlorhexidine Rinse 15 ML MOUTHWASH MM SCH ×2 (07:34→20:24)
[2022-06-20] MEDS: levoFLOXacin 750 MG/150 ML 750 MG/150 ML BAG IVPB SCH (07:34)
[2022-06-20] MEDS: Insulin DETEMIR 100 UNIT/ML X5UNITS SUBQ SCH (08:29)
[2022-06-20] MEDS: Nystatin POWDER 30 GM BOTTLE TP SCH ×3 (09:03→20:18)
[2022-06-20] MEDS ORDERED: *HR* FentaNYL (PF) 100 MCG/2 ML VIAL IVP ONE (12:47)
[2022-06-20] MEDS ORDERED: *HR* Rocuronium Bromide 50 MG/5 ML VIAL IVP ONE (12:47)
[2022-06-20] MEDS ORDERED: *HR* Midazolam HCl 2 MG/2 ML VIAL IVP ONE (12:50)
[2022-06-20] MEDS ORDERED: Silver Nitrate Applicator 1 STICK..EA. TP ONE (13:25)
[2022-06-20] MEDS: lisinopriL 20 MG TABLET PO SCH (17:50)
[2022-06-21] MEDS: Insulin LISPRO 300 UNITS/3 ML VIAL SUBQ SCH ×7 (00:31→23:30)
[2022-06-21 02:56] LABS: VBG Ionized Calcium 1.15 mmol/L (1.15-1.35)
[2022-06-21 03:01] LABS: Basophils % 0.2 %; Eosinophils % 0.2 %; Hematocrit 25.1 % (37.5-50.1); Hemoglobin 7.9 g/dL (12.9-16.9); Immature Granulocytes % 0.8 % (0-4); Lymphocytes # 0.4 K/mcL (0.6-4.6); Lymphocytes % 3.5 %; Mean Corpuscular HGB Conc 31.5 g/dL (31.6-35.5); Mean Corpuscular Volume 92.3 fL (83.0-100.0); Mean Platelet Volume 11.7 fL (9.4-12.4); Monocytes # 0.2 K/mcL (0.0-1.3); Monocytes % 2.1 %; Neutrophils # 10.4 K/mcL (1.6-8.9); Platelet Count 257 K/mcL (140-400); Red Blood Count 2.72 M/mcL (4.19-5.50); Segmented Neutrophils % 93.2 %; White Blood Count 11.2 K/mcL (4.3-11.1)
[2022-06-21] MEDS: Ipratropium/Albuterol Neb 3 ML IH SCH ×6 (03:34→23:59)
[2022-06-21 03:56] LABS: Alanine Aminotransferase 45 Units/L (7-52); Albumin/Globulin Ratio 0.7 (1.1-2.2); Alkaline Phosphatase 390 Units/L (34-104); Aspartate Amino Transferase 46 Units/L (13-39); BUN/Creatinine Ratio 58 (6-26); Bilirubin,Direct 0.1 mg/dL (0.0-0.2); Bilirubin,Indirect 0.3 mg/dL (0.0-1.0); Bilirubin,Total 0.4 mg/dL (0.3-1.0); Blood Urea Nitrogen 21 mg/dL (8-23); Calcium 8.1 mg/dL (8.6-10.3); Carbon Dioxide 26 mEq/L (23-29); Chloride 102 mEq/L (98-107); Digoxin 1.2 ng/mL (0.8-2.0); Globulin 2.9 g/dL (2.4-3.5); Glucose 144 mg/dL (70-105); Magnesium 1.6 mg/dL (1.6-2.6); Osmolality,Calculated 288 (280-300); Phosphorous 3.1 mg/dL (2.7-4.5); Sodium 136 mEq/L (136-145); Total Protein 4.9 g/dL (6.4-8.9)
[2022-06-21 04:34] LABS: ABG Base Excess 2 mEq/L (-2 to 3); ABG HCO3 25 mEq/L (21-27); ABG Oxygen Saturation 98 % (95-98); ABG PCO2 31 mmHg (35-45); ABG PH 7.51 pH Units (7.32-7.45); ABG PO2 96 mmHg (85-104); ABG TCO2 25 mEq/L (20-26); Blood Gas VT 470 cc
[2022-06-21] MEDS: Artificial Tears SOLN 15 ML BOTTLE BOTH EYES SCH ×6 (05:10→23:29)
[2022-06-21] MEDS: Pantoprazole 40 MG VIAL IVP SCH ×2 (05:11→16:53)
[2022-06-21] MEDS: CeFAZolin 2,000 MG/120 ML BAG IVPB SCH ×3 (05:17→21:58)
[2022-06-21] MEDS: Chlorhexidine Rinse 15 ML MOUTHWASH MM SCH ×2 (08:29→20:17)
[2022-06-21] MEDS: hydrALAZINE 25 MG TABLET PO SCH ×3 (08:38→23:29)
[2022-06-21] MEDS: *HR* Digoxin 0.125 MG TABLET PO SCH (08:38)
[2022-06-21] MEDS: Multivit/Ca/Min/Fe/FA 1 TAB TABLET PO SCH (08:38)
[2022-06-21] MEDS: carvediloL 25 MG TABLET PO SCH ×2 (08:38→16:53)
[2022-06-21] MEDS: Insulin DETEMIR 100 UNIT/ML X5UNITS SUBQ SCH (08:39)
[2022-06-21] MEDS: levoFLOXacin 750 MG/150 ML 750 MG/150 ML BAG IVPB SCH (08:39)
[2022-06-21] MEDS: Nystatin POWDER 30 GM BOTTLE TP SCH ×3 (08:39→20:17)
[2022-06-21] MEDS: lisinopriL 20 MG TABLET PO SCH (16:53)
[2022-06-22] MEDS: Ipratropium/Albuterol Neb 3 ML IH SCH ×5 (04:23→20:51)
[2022-06-22] MEDS: Insulin LISPRO 300 UNITS/3 ML VIAL SUBQ SCH ×6 (05:46→23:47)
[2022-06-22] MEDS: Artificial Tears SOLN 15 ML BOTTLE BOTH EYES SCH ×6 (05:47→23:48)
[2022-06-22 06:11] LABS: VBG Ionized Calcium 1.23 mmol/L (1.15-1.35)
[2022-06-22 06:19] LABS: Basophils % 0.2 %; Eosinophils % 0.1 %; Hematocrit 29.4 % (37.5-50.1); Immature Granulocytes % 0.8 % (0-4); Lymphocytes # 0.4 K/mcL (0.6-4.6); Lymphocytes % 2.9 %; Mean Corpuscular HGB Conc 30.6 g/dL (31.6-35.5); Mean Corpuscular Hemoglobin 28.7 pg (28.0-33.3); Mean Corpuscular Volume 93.6 fL (83.0-100.0); Mean Platelet Volume 10.9 fL (9.4-12.4); Monocytes # 0.4 K/mcL (0.0-1.3); Monocytes % 2.7 %; Neutrophils # 12.2 K/mcL (1.6-8.9); Platelet Count 343 K/mcL (140-400); Red Blood Count 3.14 M/mcL (4.19-5.50); Red Cell Distribution Width 16.2 % (11.5-14.5); Segmented Neutrophils % 93.3 %; White Blood Count 13.1 K/mcL (4.3-11.1)
[2022-06-22] MEDS: Pantoprazole 40 MG VIAL IVP SCH ×2 (06:25→17:33)
[2022-06-22] MEDS: CeFAZolin 2,000 MG/120 ML BAG IVPB SCH ×2 (06:25→19:04)
[2022-06-22 06:32] LABS: Alanine Aminotransferase 18 Units/L (7-52); Albumin 2.3 g/dL (3.5-5.7); Albumin/Globulin Ratio 0.7 (1.1-2.2); Alkaline Phosphatase 389 Units/L (34-104); Aspartate Amino Transferase 26 Units/L (13-39); BUN/Creatinine Ratio 43 (6-26); Bilirubin,Total 0.5 mg/dL (0.3-1.0); Blood Urea Nitrogen 19 mg/dL (8-23); Calcium 8.7 mg/dL (8.6-10.3); Carbon Dioxide 26 mEq/L (23-29); Chloride 102 mEq/L (98-107); Globulin 3.2 g/dL (2.4-3.5); Glucose 145 mg/dL (70-105); Magnesium 1.8 mg/dL (1.6-2.6); Osmolality,Calculated 291 (280-300); Phosphorous 3.4 mg/dL (2.7-4.5); Potassium 4.2 mEq/L (3.5-5.1); Sodium 138 mEq/L (136-145); Total Protein 5.5 g/dL (6.4-8.9)
[2022-06-22] MEDS: hydrALAZINE 25 MG TABLET PO SCH ×2 (08:36→17:33)
[2022-06-22] MEDS: levoFLOXacin 750 MG/150 ML 750 MG/150 ML BAG IVPB SCH (08:36)
[2022-06-22] MEDS: Chlorhexidine Rinse 15 ML MOUTHWASH MM SCH ×2 (08:36→20:56)
[2022-06-22] MEDS: *HR* Digoxin 0.125 MG TABLET PO SCH (08:36)
[2022-06-22] MEDS: Multivit/Ca/Min/Fe/FA 1 TAB TABLET PO SCH (08:36)
[2022-06-22] MEDS: carvediloL 25 MG TABLET PO SCH ×2 (08:36→17:33)
[2022-06-22] MEDS: Insulin DETEMIR 100 UNIT/ML X5UNITS SUBQ SCH (08:37)
[2022-06-22] MEDS: Nystatin POWDER 30 GM BOTTLE TP SCH ×3 (08:38→20:56)
[2022-06-22] MEDS: lisinopriL 20 MG TABLET PO SCH (17:33)
[2022-06-23] MEDS: Ipratropium/Albuterol Neb 3 ML IH SCH ×7 (00:43→23:35)
[2022-06-23] MEDS: hydrALAZINE 25 MG TABLET PO SCH ×3 (01:20→16:59)
[2022-06-23] MEDS: Pantoprazole 40 MG VIAL IVP SCH ×2 (04:09→16:59)
[2022-06-23] MEDS: CeFAZolin 2,000 MG/120 ML BAG IVPB SCH ×3 (04:10→20:17)
[2022-06-23] MEDS: Artificial Tears SOLN 15 ML BOTTLE BOTH EYES SCH ×5 (04:10→20:12)
[2022-06-23] MEDS: Insulin LISPRO 300 UNITS/3 ML VIAL SUBQ SCH ×5 (04:10→20:17)
[2022-06-23] MEDS: levoFLOXacin 750 MG/150 ML 750 MG/150 ML BAG IVPB SCH (07:55)
[2022-06-23] MEDS: carvediloL 25 MG TABLET PO SCH ×2 (07:56→16:59)
[2022-06-23] MEDS: *HR* Digoxin 0.125 MG TABLET PO SCH (07:56)
[2022-06-23] MEDS: Multivit/Ca/Min/Fe/FA 1 TAB TABLET PO SCH (07:58)
[2022-06-23] MEDS: Nystatin POWDER 30 GM BOTTLE TP SCH ×3 (07:58→20:27)
[2022-06-23] MEDS: Chlorhexidine Rinse 15 ML MOUTHWASH MM SCH ×2 (07:58→20:12)
[2022-06-23] MEDS: Insulin DETEMIR 100 UNIT/ML X5UNITS SUBQ SCH (08:01)
[2022-06-23 10:50] LABS: VBG Ionized Calcium 1.13 mmol/L (1.15-1.35)
[2022-06-23 10:52] LABS: Basophils % 0.1 %; Eosinophils % 0.3 %; Hematocrit 25.8 % (37.5-50.1); Immature Granulocytes % 0.5 % (0-4); Lymphocytes # 0.3 K/mcL (0.6-4.6); Lymphocytes % 4.1 %; Mean Corpuscular Hemoglobin 28.8 pg (28.0-33.3); Mean Corpuscular Volume 92.8 fL (83.0-100.0); Mean Platelet Volume 10.7 fL (9.4-12.4); Monocytes # 0.3 K/mcL (0.0-1.3); Monocytes % 3.4 %; Neutrophils # 6.7 K/mcL (1.6-8.9); Platelet Count 267 K/mcL (140-400); Red Blood Count 2.78 M/mcL (4.19-5.50); Segmented Neutrophils % 91.6 %; White Blood Count 7.3 K/mcL (4.3-11.1)
[2022-06-23 11:08] LABS: Alanine Aminotransferase 7 Units/L (7-52); Albumin 2.2 g/dL (3.5-5.7); Albumin/Globulin Ratio 0.8 (1.1-2.2); Alkaline Phosphatase 289 Units/L (34-104); Aspartate Amino Transferase 20 Units/L (13-39); BUN/Creatinine Ratio 54 (6-26); Bilirubin,Total 0.3 mg/dL (0.3-1.0); Blood Urea Nitrogen 21 mg/dL (8-23); Calcium 8.2 mg/dL (8.6-10.3); Carbon Dioxide 27 mEq/L (23-29); Chloride 102 mEq/L (98-107); Globulin 2.6 g/dL (2.4-3.5); Glucose 240 mg/dL (70-105); Magnesium 1.5 mg/dL (1.6-2.6); Osmolality,Calculated 295 (280-300); Phosphorous 2.8 mg/dL (2.7-4.5); Potassium 3.7 mEq/L (3.5-5.1); Sodium 137 mEq/L (136-145); Total Protein 4.8 g/dL (6.4-8.9)
[2022-06-23] MEDS: lisinopriL 20 MG TABLET PO SCH (16:59)
[2022-06-23 20:28] LABS: ABG Base Excess 6 mEq/L (-2 to 3); ABG HCO3 29 mEq/L (21-27); ABG Oxygen Saturation 91 % (95-98); ABG PCO2 36 mmHg (35-45); ABG PH 7.51 pH Units (7.32-7.45); ABG PO2 55 mmHg (85-104); ABG TCO2 30 mEq/L (20-26); Blood Gas Modality CPAP/PS; Blood Gas Pressure Support 8 cm H2O
[2022-06-24] MEDS: hydrALAZINE 25 MG TABLET PO SCH ×3 (00:15→16:17)
[2022-06-24] MEDS: Artificial Tears SOLN 15 ML BOTTLE BOTH EYES SCH ×6 (00:18→20:26)
[2022-06-24] MEDS: Insulin LISPRO 300 UNITS/3 ML VIAL SUBQ SCH ×6 (00:27→20:25)
[2022-06-24] MEDS: Ipratropium/Albuterol Neb 3 ML IH SCH ×6 (03:25→23:13)
[2022-06-24] MEDS: Pantoprazole 40 MG VIAL IVP SCH ×2 (04:47→17:38)
[2022-06-24] MEDS: CeFAZolin 2,000 MG/120 ML BAG IVPB SCH ×3 (04:57→20:25)
[2022-06-24] MEDS: Multivit/Ca/Min/Fe/FA 1 TAB TABLET PO SCH (08:04)
[2022-06-24] MEDS: carvediloL 25 MG TABLET PO SCH ×2 (08:04→16:17)
[2022-06-24] MEDS: *HR* Digoxin 0.125 MG TABLET PO SCH (08:04)
[2022-06-24] MEDS: Chlorhexidine Rinse 15 ML MOUTHWASH MM SCH ×2 (08:05→20:25)
[2022-06-24] MEDS: levoFLOXacin 750 MG/150 ML 750 MG/150 ML BAG IVPB SCH (08:05)
[2022-06-24] MEDS: Nystatin POWDER 30 GM BOTTLE TP SCH ×3 (08:06→20:26)
[2022-06-24] MEDS: Insulin DETEMIR 100 UNIT/ML X5UNITS SUBQ SCH (08:30)
[2022-06-24 14:00] LABS: Basophils % 0.1 %; Eosinophils % 0.3 %; Hematocrit 25.2 % (37.5-50.1); Hemoglobin 7.8 g/dL (12.9-16.9); Immature Granulocytes % 0.7 % (0-4); Lymphocytes # 0.3 K/mcL (0.6-4.6); Lymphocytes % 3.5 %; Mean Corpuscular Hemoglobin 28.2 pg (28.0-33.3); Mean Platelet Volume 10.3 fL (9.4-12.4); Monocytes # 0.3 K/mcL (0.0-1.3); Monocytes % 3.5 %; Platelet Count 274 K/mcL (140-400); Red Blood Count 2.77 M/mcL (4.19-5.50); Red Cell Distribution Width 15.9 % (11.5-14.5); Segmented Neutrophils % 91.9 %; White Blood Count 7.7 K/mcL (4.3-11.1)
[2022-06-24 14:21] LABS: Alanine Aminotransferase 4 Units/L (7-52); Albumin 2.2 g/dL (3.5-5.7); Albumin/Globulin Ratio 0.8 (1.1-2.2); Alkaline Phosphatase 237 Units/L (34-104); Aspartate Amino Transferase 12 Units/L (13-39); BUN/Creatinine Ratio 64 (6-26); Bilirubin,Total 0.2 mg/dL (0.3-1.0); Blood Urea Nitrogen 21 mg/dL (8-23); Calcium 8.1 mg/dL (8.6-10.3); Carbon Dioxide 29 mEq/L (23-29); Chloride 107 mEq/L (98-107); Globulin 2.6 g/dL (2.4-3.5); Glucose 159 mg/dL (70-105); Magnesium 1.4 mg/dL (1.6-2.6); Osmolality,Calculated 286 (280-300); Phosphorous 1.8 mg/dL (2.7-4.5); Potassium 3.5 mEq/L (3.5-5.1); Sodium 135 mEq/L (136-145); Total Protein 4.8 g/dL (6.4-8.9)
[2022-06-24 14:22] LABS: VBG Ionized Calcium 1.17 mmol/L (1.15-1.35)
[2022-06-24] MEDS: lisinopriL 20 MG TABLET PO SCH (17:38)
[2022-06-25] MEDS: Artificial Tears SOLN 15 ML BOTTLE BOTH EYES SCH ×6 (00:45→21:23)
[2022-06-25] MEDS: hydrALAZINE 25 MG TABLET PO SCH ×3 (00:46→16:07)
[2022-06-25] MEDS: Insulin LISPRO 300 UNITS/3 ML VIAL SUBQ SCH ×6 (00:46→21:24)
[2022-06-25 03:12] LABS: Basophils % 0.1 %; Eosinophils % 0.4 %; Hematocrit 25.9 % (37.5-50.1); Immature Granulocytes % 0.6 % (0-4); Lymphocytes # 0.3 K/mcL (0.6-4.6); Lymphocytes % 4.9 %; Mean Corpuscular HGB Conc 30.9 g/dL (31.6-35.5); Mean Corpuscular Hemoglobin 28.4 pg (28.0-33.3); Mean Corpuscular Volume 91.8 fL (83.0-100.0); Mean Platelet Volume 10.5 fL (9.4-12.4); Monocytes # 0.3 K/mcL (0.0-1.3); Monocytes % 4.4 %; Neutrophils # 6.3 K/mcL (1.6-8.9); Platelet Count 292 K/mcL (140-400); Red Blood Count 2.82 M/mcL (4.19-5.50); Red Cell Distribution Width 16.2 % (11.5-14.5); Segmented Neutrophils % 89.6 %
[2022-06-25 03:14] LABS: VBG Ionized Calcium 1.17 mmol/L (1.15-1.35)
[2022-06-25 03:50] LABS: Alanine Aminotransferase 4 Units/L (7-52); Albumin 2.2 g/dL (3.5-5.7); Albumin/Globulin Ratio 0.8 (1.1-2.2); Alkaline Phosphatase 212 Units/L (34-104); Aspartate Amino Transferase 16 Units/L (13-39); BUN/Creatinine Ratio 86 (6-26); Bilirubin,Total 0.3 mg/dL (0.3-1.0); Blood Urea Nitrogen 24 mg/dL (8-23); Calcium 8.1 mg/dL (8.6-10.3); Carbon Dioxide 28 mEq/L (23-29); Chloride 104 mEq/L (98-107); Globulin 2.9 g/dL (2.4-3.5); Glucose 183 mg/dL (70-105); Magnesium 1.3 mg/dL (1.6-2.6); Osmolality,Calculated 293 (280-300); Phosphorous 1.8 mg/dL (2.7-4.5); Potassium 3.7 mEq/L (3.5-5.1); Sodium 137 mEq/L (136-145); Total Protein 5.1 g/dL (6.4-8.9)
[2022-06-25] MEDS: Ipratropium/Albuterol Neb 3 ML IH SCH ×5 (04:11→19:43)
[2022-06-25] MEDS: CeFAZolin 2,000 MG/120 ML BAG IVPB SCH ×2 (05:04→11:34)
[2022-06-25] MEDS: Pantoprazole 40 MG VIAL IVP SCH ×2 (05:04→16:07)
[2022-06-25] MEDS: levoFLOXacin 750 MG/150 ML 750 MG/150 ML BAG IVPB SCH (08:15)
[2022-06-25] MEDS: carvediloL 25 MG TABLET PO SCH ×2 (08:15→16:07)
[2022-06-25] MEDS: Chlorhexidine Rinse 15 ML MOUTHWASH MM SCH ×2 (08:15→21:25)
[2022-06-25] MEDS: Multivit/Ca/Min/Fe/FA 1 TAB TABLET PO SCH (08:15)
[2022-06-25] MEDS: *HR* Digoxin 0.125 MG TABLET PO SCH (08:15)
[2022-06-25] MEDS: Nystatin POWDER 30 GM BOTTLE TP SCH ×3 (08:17→21:25)
[2022-06-25] MEDS: Insulin DETEMIR 100 UNIT/ML X5UNITS SUBQ SCH (08:41)
[2022-06-25] MEDS ORDERED: Ondansetron 4 MG/2 ML VIAL IVP ONE ×2 (13:28→13:30)
[2022-06-25] MEDS: lisinopriL 20 MG TABLET PO SCH (16:07)
[2022-06-25 16:15] VITALS: BP 183/88; TEMP 97.5
[2022-06-25 18:17] VITALS: PULSE 75
[2022-06-25 19:46] VITALS: O2SAT 94
[2022-06-25] MEDS ORDERED: Chlorhexidine Rinse 15 ML MOUTHWASH PO ONE (23:58)
== END 2022-06-25 23:59 | DRG 4 ==
LOC: EMEROOARM 11:10 → ICNU 11:10 → 2NNU 06-22 15:53
PROVIDERS: ADMIT Pediatrics; ATTEND Pediatrics